=== PATIENT | female | born 1960 | race Caucasian/White ===

== ENCOUNTER 2017-03-14 21:48 | Inpatient (IN) | payer OTHER, MEDICARE ==
[~2017-03-14] VITALS: Ht 177.8 cm; Wt 75.2 kg
[2017-03-14 21:52] VITALS: BP 172/92; PULSE 79; RESP 18; TEMP 97.8; O2SAT 92
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
[2017-03-14] MEDS ORDERED: HALOPERIDOL LACTATE 5 MG/ML AMP IM PRN (23:15)
[2017-03-14] MEDS ORDERED: ACETAMINOPHEN/HYDROcodone 325 MG/5 MG TAB PO PRN (23:15)
[2017-03-14] MEDS ORDERED: NALOXONE HCL 0.4 MG/ML AMP IV PUSH PRN (23:15)
[2017-03-14] MEDS ORDERED: ONDANSETRON HCL 4 MG/2 ML VIAL IV PUSH PRN (23:15)
[2017-03-14] MEDS ORDERED: SODIUM CHLORIDE 0.9% FLUSH 10 ML FLUSH IV FLUSH PRN (23:15)
[2017-03-14] MEDS ORDERED: Post-op Orders (for Pharmacy) XX ONE (23:15)
[2017-03-14] MEDS ORDERED: PANTOPRAZOLE SOD 40 MG DELAYED RELEASE TAB PO SCH (23:15)
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
[2017-03-15] VITALS (30 sets, daily range): BP systolic 116–188; BP diastolic 65–89; PULSE 78–98; RESP 16–24; TEMP 98–101.8; O2SAT 96–100
[2017-03-15] MEDS: MORPHINE SULFATE 2 MG/ML INJ IV PUSH PRN ×2 (00:30→10:18)
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
[2017-03-15] MEDS: DEXMEDETOMIDINE INJ 200 MCG in SODIUM CHLORIDE 0.9% INJ 50 ML IV PRN ×2 (01:20→07:55)
[2017-03-15] MEDS: levETIRAcetam INJ 500 MG in SODIUM CHLORIDE 0.9% INJ 100 ML IV SCH ×3 (01:20→20:18)
[2017-03-15] MEDS ORDERED: LORazepam 2 MG/ML VIAL IV PUSH ONE ×2 (02:00→02:30)
[2017-03-15 02:20] LABS: AUTOMATED NEUTROPHIL # 14.1 TH/MM3 (1.8-7.7); BASOPHIL % 0.3 % (0.0-2.0); LYMPH % 2.2 % (9.0-44.0); LYMPHOCYTE # 0.3 TH/MM3 (1.0-4.8); MEAN CELL VOLUME 97.5 FL (80.0-100.0); MEAN CORPUSCULAR HEMOGLOBIN 32.6 PG (27.0-34.0); MEAN CORPUSCULAR HGB CONC 33.4 % (32.0-36.0); MEAN PLATELET VOLUME 7.5 FL (7.0-11.0); MONO % 4.2 % (0.0-8.0); MONOCYTE # 0.6 TH/MM3 (0-0.9); NEUT % 93.3 % (16.0-70.0); PLATELET COUNT 141 TH/MM3 (150-450); RED BLOOD COUNT 1.94 MIL/MM3 (4.50-5.90); RED CELL DISTRIBUTION WIDTH 15.2 % (11.6-17.2); WHITE BLOOD COUNT 15.2 TH/MM3 (4.0-11.0)
[2017-03-15 02:39] LABS: BLOOD UREA NITROGEN 41 MG/DL (7-18); CALCIUM 8.3 MG/DL (8.5-10.1); CHLORIDE 98 MEQ/L (98-107); CREATININE 5.65 MG/DL (0.60-1.30); GLOMERULAR FILTRATION RATE 11 ML/MIN (>89); GLUCOSE,RANDOM 145 MG/DL (74-106); SODIUM (NA) 133 MEQ/L (136-145)
[2017-03-15 02:43] LABS: HEMOGLOBIN 6.3 GM/DL (13.0-17.0)
[2017-03-15 02:44] LABS: HEMATOCRIT 18.9 % (39.0-51.0)
[2017-03-15] MEDS ORDERED: SODIUM CHLOR 0.9% 250 ML INJ 250 ML IV ONE (03:00)
[2017-03-15] MEDS ORDERED: LORazepam 2 MG/ML VIAL IV PUSH PRN (04:30)
[2017-03-15] MEDS: FAMOTIDINE 20 MG/2 ML VIAL IV PUSH SCH ×2 (05:37→17:30)
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
[2017-03-15] MEDS: METHOCARBAMOL 500 MG TAB PO SCH ×3 (07:30→21:29)
[2017-03-15] MEDS: MAGNESIUM HYDROXIDE SUSP 30 ML CUP PO SCH ×2 (09:00→20:18)
[2017-03-15] MEDS: SODIUM CHLORIDE 0.9% FLUSH 10 ML FLUSH IV FLUSH SCH ×2 (09:00→20:18)
[2017-03-15] MEDS: DOCUSATE SODIUM 50 MG/SENNA 8.6 MG TAB PO SCH ×2 (09:00→20:19)
[2017-03-15] MEDS: LIDOCAINE HCL 5% PATCH T-DERMAL SCH (10:19)
[2017-03-15] MEDS: LABETALOL HCL 100 MG/20 ML VIAL IV PUSH PRN (10:43)
[2017-03-15] MEDS ORDERED: MIDAZOLAM HCL 5 MG/ML VIAL (1 ML) ONE (11:33)
[2017-03-15] MEDS ORDERED: PROPOFOL 500 MG/50 ML INJ 50 ML ONE (11:53)
--- NOTE | 2017-03-15 12:08 | PD.PROCEDR ---
Procedure Note Procedure DX: Altered mental status OP: Orotracheal Intubation (78478) Procedure: Bag mask ventilation. Versed 5 mg and cis-atracurium 20 mg iv. Intubated orally with 7.5 tube. Position confirmed with CO2 detection, breath sounds, sats 100%. CXR ordered, will review. Buddy Valle MD Mar 15, 2017 12:08
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
[2017-03-15] MEDS: fentaNYL DRIP 250 ML IV PRN (12:45)
[2017-03-15] MEDS ORDERED: 3% SALINE INJ 500 ML IV SCH (12:45)
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
[2017-03-15] MEDS ORDERED: MORPHINE SULFATE 8 MG/ML INJ ONE (13:33)
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
[2017-03-15] MEDS ORDERED: SODIUM CHLOR 0.9% 1000 ML INJ 1,000 ML OTHER PRN ×2 (14:23)
[2017-03-15] MEDS ORDERED: SODIUM CHLOR 0.9% 1000 ML INJ 1,000 ML IV PRN (14:23)
[2017-03-15] MEDS ORDERED: SODIUM CHLORIDE 0.9% FLUSH 10 ML FLUSH IV FLUSH PRN (14:30)
[2017-03-15] MEDS ORDERED: MANNITOL 12.5 GM/50 ML VIAL IV PRN (14:30)
[2017-03-15] MEDS ORDERED: diphenhydrAMINE HCL 25 MG CAP PO PRN (14:30)
[2017-03-15] MEDS ORDERED: cloNIDine HCL 0.1 MG TAB PO PRN (14:30)
[2017-03-15] MEDS ORDERED: NITROGLYCERIN 0.4 MG SL 25 TABS/BTL SL PRN (14:30)
[2017-03-15] MEDS ORDERED: ONDANSETRON HCL 4 MG/2 ML VIAL IV PUSH PRN (14:30)
[2017-03-15] MEDS ORDERED: ACETAMINOPHEN 325 MG TAB PO PRN (14:30)
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
[2017-03-15] MEDS: PROPOFOL 1000 MG/100 ML INJ 100 ML IV PRN (15:31)
--- NOTE | 2017-03-15 15:53 | MP ---
cc: MD DONALDO,LENNIE DATE OF SURGERY: 03/15/2017. PREOPERATIVE DIAGNOSIS: Traumatic brain injury with bilateral subdural hematomas and intracerebral hemorrhage. POSTOPERATIVE DIAGNOSIS: Traumatic brain injury with bilateral subdural hematomas and intracerebral hemorrhage. OPERATIVE PROCEDURE PERFORMED: Triple lumen placement in the right subclavian. SURGEON: Lennie Robles M.D. ANESTHESIA: 1% Xylocaine. ESTIMATED BLOOD LOSS: Minimal. DESCRIPTION OF THE PROCEDURE IN DETAIL: The patient was prepped and draped in the usual sterile fashion. The area was infiltrated with 1% Xylocaine. A needle was advanced to the subclavian vein and through the needle a J-wire was passed. Over the J-wire dilator, a triple lumen was placed and the balloon was stitched in place with 2-0 silk. Chest x-ray obtained. Lennie SHIPMAN/SANDRO /3:10 PM /3:45 PM
[2017-03-15] MEDS ORDERED: DESMOPRESSIN ACETATE 4 MCG/ML VIAL IV PUSH ONE (16:00)
[2017-03-15 16:19] LABS: INTERNATIONAL NORMALIZED RATIO 1.2 RATIO; PROTHROMBIN TIME - PATIENT 12.2 SEC (9.8-11.6)
[2017-03-15 16:20] LABS: HEMATOCRIT 16.2 % (35.0-46.0); HEMOGLOBIN 5.5 GM/DL (11.6-15.3)
[2017-03-15] MEDS: cloNIDine HCL 0.1 MG/24 HR PATCH T-DERMAL SCH (17:29)
[2017-03-15] MEDS: ACETAMINOPHEN 1000 MG/100 ML 100 ML IV PRN (18:23)
[2017-03-15] MEDS: CHLORHEXIDINE 0.12% (ORAL KIT) 15 ML CUP MT SCH (19:50)
[2017-03-15] MEDS: REMOVE OLD LIDOCAINE PATCH T-DERMAL SCH (21:00)
[2017-03-15 23:28] LABS: HEMATOCRIT 24.2 % (35.0-46.0); HEMOGLOBIN 8.6 GM/DL (11.6-15.3); MEAN CORPUSCULAR HEMOGLOBIN 31.1 PG (27.0-34.0); MEAN CORPUSCULAR HGB CONC 35.3 % (32.0-36.0); MEAN PLATELET VOLUME 8.1 FL (7.0-11.0); PLATELET COUNT 73 TH/MM3 (150-450); RED BLOOD COUNT 2.75 MIL/MM3 (4.00-5.30); RED CELL DISTRIBUTION WIDTH 18.9 % (11.6-17.2)
[2017-03-16] VITALS (21 sets, daily range): BP systolic 129–150; BP diastolic 75–91; PULSE 74–136; RESP 14–16; TEMP 97.9–99.7; O2SAT 100
[2017-03-16] MEDS: PROPOFOL 1000 MG/100 ML INJ 100 ML IV PRN ×4 (00:13→18:20)
[2017-03-16] MEDS: FAMOTIDINE 20 MG/2 ML VIAL IV PUSH SCH ×2 (04:18→16:52)
[2017-03-16 04:20] LABS: AUTOMATED NEUTROPHIL # 7.2 TH/MM3 (1.8-7.7); BASOPHIL % 0.5 % (0.0-2.0); EOSINOPHIL % 0.1 % (0.0-4.0); HEMATOCRIT 24.9 % (35.0-46.0); HEMOGLOBIN 8.9 GM/DL (11.6-15.3); LYMPH % 7.3 % (9.0-44.0); LYMPHOCYTE # 0.6 TH/MM3 (1.0-4.8); MEAN CELL VOLUME 87.7 FL (80.0-100.0); MEAN CORPUSCULAR HEMOGLOBIN 31.3 PG (27.0-34.0); MEAN CORPUSCULAR HGB CONC 35.6 % (32.0-36.0); MEAN PLATELET VOLUME 7.9 FL (7.0-11.0); MONO % 7.7 % (0.0-8.0); MONOCYTE # 0.7 TH/MM3 (0-0.9); NEUT % 84.4 % (16.0-70.0); PLATELET COUNT 76 TH/MM3 (150-450); RED BLOOD COUNT 2.83 MIL/MM3 (4.00-5.30); RED CELL DISTRIBUTION WIDTH 19.4 % (11.6-17.2); WHITE BLOOD COUNT 8.5 TH/MM3 (4.0-11.0)
[2017-03-16 04:36] LABS: ALBUMIN 2.9 GM/DL (3.4-5.0); CALCIUM 7.4 MG/DL (8.5-10.1); CALCIUM-PROTEIN CORRECTED 7.9 MG/DL (8.5-10.1); CREATININE 6.73 MG/DL (0.50-1.00); MAGNESIUM 2.3 MG/DL (1.5-2.5); TOTAL BILIRUBIN ADULT 0.5 MG/DL (0.2-1.0); TOTAL PROTEIN 6.2 GM/DL (6.4-8.2)
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
[2017-03-16 05:26] LABS: ACANTHOCYTES OCC (NORMAL)
[2017-03-16] MEDS: METHOCARBAMOL 500 MG TAB PO SCH ×3 (05:40→21:20)
[2017-03-16] MEDS: CHLORHEXIDINE 0.12% (ORAL KIT) 15 ML CUP MT SCH ×2 (07:44→19:36)
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
[2017-03-16] MEDS: SODIUM CHLORIDE 0.9% FLUSH 10 ML FLUSH IV FLUSH SCH ×2 (09:00→21:20)
[2017-03-16] MEDS: fentaNYL DRIP 250 ML IV PRN ×2 (09:57→23:11)
[2017-03-16] MEDS: 3% SALINE INJ 500 ML IV SCH (09:58)
[2017-03-16] MEDS: DOCUSATE SODIUM 50 MG/SENNA 8.6 MG TAB PO SCH ×2 (09:58→21:20)
[2017-03-16] MEDS: levETIRAcetam INJ 500 MG in SODIUM CHLORIDE 0.9% INJ 100 ML IV SCH ×2 (09:58→21:19)
[2017-03-16] MEDS: LIDOCAINE HCL 5% PATCH T-DERMAL SCH (09:59)
[2017-03-16] MEDS: MAGNESIUM HYDROXIDE SUSP 30 ML CUP PO SCH ×2 (09:59→21:20)
[2017-03-16] MEDS ORDERED: IOHEXOL 350 MG/ML 10 ML VIAL (for RAD DIAG) IVCONTRAST ONE (11:04)
--- NOTE | 2017-03-16 11:16 | RADRPT ---
EXAM DATE/TIME: 03/16/2017 11:01 [facility] COMPARISON: CT BRAIN W/O CONTRAST, March 15, 2017, 14:21. INDICATIONS : Evaluate intracranial bleed RADIATION DOSE: 34.75 CTDIvol (mGy) MEDICAL HISTORY : Hypertension. Hepatitis C. Renal failure, chronic. SURGICAL HISTORY : Cholecystectomy. ENCOUNTER: Initial ACUITY: 1 day PAIN SCALE: Non-responsive LOCATION: cranial TECHNIQUE: Multiple contiguous axial images were obtained of the head. Using automated exposure control and adj ustment of the mA and/or kV according to patient size, radiation dose was kept as low as reasonably a chievable to obtain optimal diagnostic quality images. DICOM format image data is available electro nically for review and comparison. FINDINGS: There is stable diffuse subarachnoid hemorrhage bilaterally. Acute subdural hematomas are also again noted and stable measuring 7 mm in width on the left and 8 mm in width on the right. The acute parenc hymal bleed within the right occipital lobe is stable in appearance compared to previous examination. No new midline shift is noted. No ventriculomegaly is noted. The patient is status post aneurysm cli pping on the left. CONCLUSION: Stable diffuse acute subarachnoid hemorrhage and bilateral subdural hematomas. No new midline shift or ventriculomegaly is noted. Jordan Jung MD on March 16, 2017 at 11:10 Board Certified Radiologist. This report was verified electronically.
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
--- NOTE | 2017-03-16 12:06 | RADRPT ---
EXAM DATE/TIME: 03/16/2017 11:01 [facility] COMPARISON: CT BRAIN W/O CONTRAST, March 16, 2017, 11:01. INDICATIONS : Evaluate intracranial bleed IV CONTRAST: 70 cc Omnipaque 350 (iohexol) IV ; Cumulative dose for multiple exams. RADIATION DOSE: 25.96 CTDIvol (mGy) ; Combined studies MEDICAL HISTORY : Hypertension. Hepatitis C. Renal insufficiency, chronic. SURGICAL HISTORY : Cholecystectomy. ENCOUNTER: Initial ACUITY: 1 day PAIN SCALE: Non-responsive LOCATION: cranial TECHNIQUE: Volumetric scanning was performed using a multi-row detector CT scanner. The data was post processed with a variety of visualization algorithms including full volume maximum intensity pr ojection, multi-planar sliding thin slab reformation, curved planar reformation, and surface renderin g techniques. Using automated exposure control and adjustment of the mA and/or kV according to patie nt size, radiation dose was kept as low as reasonably achievable to obtain optimal diagnostic quality images. DICOM format image data is available electronically for review and comparison. FINDINGS: Previous aneurysm clipping as evident. Patient having new subarachnoid hemorrhage. Aneurysm clippin g is at the skull base. I don't CA new aneurysm. Skull base is not cleared. Conventional angiograp hy would be of benefit. CONCLUSION: Subarachnoid hemorrhage. Aneurysm is not identified. Han Santillan MD FACR on March 16, 2017 at 12:01 Board Certified Radiologist. This report was verified electronically.
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
--- NOTE | 2017-03-16 13:00 | RADRPT ---
EXAM DATE/TIME: 03/16/2017 11:01 [facility] COMPARISON: No previous studies available for comparison. INDICATIONS : Evaluate bleed IV CONTRAST: 70 cc Omnipaque 350 (iohexol) IV ; Cumulative dose for multiple exams. RADIATION DOSE: 25.96 CTDIvol (mGy) ; Combined studies MEDICAL HISTORY : Hepatitis C. Hypertension. Renal failure, chronic. SURGICAL HISTORY : Cholecystectomy. ENCOUNTER: Initial ACUITY: 1 day PAIN SCALE: Non-responsive LOCATION: cranial Elevated flow velocities and ICA/CCA ratios have been found to correlate with increased degrees of vessel stenosis, calculated as percentage of diameter relative to a normal segment of distal ICA/CCA. TECHNIQUE: Volumetric scanning was performed using a multirow detector CT scanner. The data was post processed with a variety of visualization algorithms including full-volume maximum intensity projection, multip lanar sliding thin-slab reformation, curved-planar reformation, and surface-rendering techniques. Us ing automated exposure control and adjustment of the mA and/or kV according to patient size, radiatio n dose was kept as low as reasonably achievable to obtain optimal diagnostic quality images. DICOM f ormat image data is available electronically for review and comparison. FINDINGS: AORTIC ARCH: Truncus arch anatomy. Widely patent arch vessels. RIGHT CAROTID: The common carotid artery is intact. The carotid bulb has a normal configuration without ulceration o r narrowing. The internal carotid artery lumen is smooth without stenosis. The external carotid anitra ry is intact. LEFT CAROTID: The common carotid artery is intact. The carotid bulb has a normal configuration without ulceration or narrowing. The internal carotid artery lumen is smooth without stenosis. The external carotid ar rosa is intact. VERTEBRALS: The vertebral arteries have a symmetric diameter. No stenotic lesions are seen. CONCLUSION: Normal carotid CTA Alex Terrell MD on March 16, 2017 at 12:56 Board Certified Radiologist. This report was verified electronically.
[2017-03-16] MEDS ORDERED: RASS Change Order XX ONE (14:15)
[2017-03-16 15:24] LABS: HEPATITIS A AB IGM NEGATIVE (NEGATIVE); HEPATITIS B CORE AB IGM NEGATIVE (NEGATIVE); HEPATITIS B SURFACE ANTIGEN NEGATIVE (NEGATIVE); HEPATITIS C AB IgG REACTIVE (NEGATIVE)
[2017-03-16] MEDS ORDERED: LISI-515 PO (16:00)
[2017-03-16] MEDS ORDERED: CALC1CAP PO (16:00)
[2017-03-16] MEDS ORDERED: XANA1TAB2 PO (16:00)
[2017-03-16] MEDS ORDERED: RENATAB6 PO (16:00)
[2017-03-16] MEDS ORDERED: CLON0.1T PO (16:00)
[2017-03-16] MEDS ORDERED: SEVEL800 PO (16:00)
[2017-03-16] MEDS ORDERED: METO1TAB9 PO (16:00)
[2017-03-16] MEDS ORDERED: CINA30 PO (16:00)
[2017-03-16] MEDS ORDERED: AMLO10TA2 PO (16:00)
[2017-03-16] MEDS ORDERED: PARO40TA2 PO (16:00)
[2017-03-16] MEDS ORDERED: ALBUAER3 INH (16:00)
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
[2017-03-16] MEDS: RESP: ALBUTEROL 2.5 MG/IPRATROPIUM 0.5 MG NEB (PRN) NEB (20:11)
[2017-03-16] MEDS ORDERED: SODIUM CHLORIDE 23.4% INJ 240 MEQ in SYRINGE/BAG 1 EA IV ONE (20:30)
[2017-03-16] MEDS: MIDAZOLAM 100 MG/NS 100 ML DRIP Premix IV PRN (21:00)
[2017-03-16] MEDS: REMOVE OLD LIDOCAINE PATCH T-DERMAL SCH (21:54)
[2017-03-16] MEDS ORDERED: RESP: ACETYLCYSTEINE 10% 10 ML NEB NEB SCH (22:30)
[2017-03-16] MEDS: RESP: ACETYLCYSTEINE 10% 30 ML NEB NEB SCH (22:45)
[2017-03-16] MEDS ORDERED: RESP: ACETYLCYSTEINE 20% 30 ML NEB NEB SCH (22:45)
[2017-03-16] MEDS ORDERED: METOPROLOL TARTRATE 5 MG/5 ML VIAL IV PUSH ONE (23:00)
[2017-03-16 23:14] LABS: BASOPHIL % 0.5 % (0.0-2.0); EOSINOPHIL % 0.5 % (0.0-4.0); HEMATOCRIT 24.5 % (35.0-46.0); HEMOGLOBIN 8.6 GM/DL (11.6-15.3); LYMPH % 6.8 % (9.0-44.0); LYMPHOCYTE # 0.6 TH/MM3 (1.0-4.8); MEAN CELL VOLUME 89.2 FL (80.0-100.0); MEAN CORPUSCULAR HEMOGLOBIN 31.3 PG (27.0-34.0); MEAN CORPUSCULAR HGB CONC 35.1 % (32.0-36.0); MEAN PLATELET VOLUME 7.9 FL (7.0-11.0); MONOCYTE # 0.5 TH/MM3 (0-0.9); NEUT % 87.2 % (16.0-70.0); PLATELET COUNT 78 TH/MM3 (150-450); RED BLOOD COUNT 2.74 MIL/MM3 (4.00-5.30); RED CELL DISTRIBUTION WIDTH 19.6 % (11.6-17.2); WHITE BLOOD COUNT 9.1 TH/MM3 (4.0-11.0)
[2017-03-16 23:38] LABS: BICARBONATE 27.2 MEQ/L (21.0-32.0); CALCIUM 8.3 MG/DL (8.5-10.1); CREATININE 4.11 MG/DL (0.50-1.00); MAGNESIUM 2.1 MG/DL (1.5-2.5); PHOSPHORUS 3.3 MG/DL (2.5-4.9)
[2017-03-17] VITALS (28 sets, daily range): BP systolic 131–179; BP diastolic 68–94; PULSE 73–136; RESP 14–16; TEMP 98.5–100.2; O2SAT 96–100
[2017-03-17] MEDS ORDERED: SODIUM CHLORIDE 0.9% IV ONE (00:15)
[2017-03-17] MEDS ORDERED: DESMOPRESSIN IV ONE (00:15)
[2017-03-17] MEDS: PROPOFOL 1000 MG/100 ML INJ 100 ML IV PRN ×5 (01:10→23:25)
[2017-03-17] MEDS: RESP: ACETYLCYSTEINE 10% 30 ML NEB NEB SCH ×4 (03:11→22:06)
[2017-03-17 04:07] LABS: AUTOMATED NEUTROPHIL # 10.4 TH/MM3 (1.8-7.7); BASOPHIL % 0.4 % (0.0-2.0); EOSINOPHIL % 0.1 % (0.0-4.0); HEMATOCRIT 24.6 % (35.0-46.0); HEMOGLOBIN 8.5 GM/DL (11.6-15.3); LYMPH % 1.1 % (9.0-44.0); LYMPHOCYTE # 0.1 TH/MM3 (1.0-4.8); MEAN CELL VOLUME 88.9 FL (80.0-100.0); MEAN CORPUSCULAR HEMOGLOBIN 30.5 PG (27.0-34.0); MEAN CORPUSCULAR HGB CONC 34.3 % (32.0-36.0); MEAN PLATELET VOLUME 7.6 FL (7.0-11.0); MONO % 4.4 % (0.0-8.0); MONOCYTE # 0.5 TH/MM3 (0-0.9); PLATELET COUNT 90 TH/MM3 (150-450); RED BLOOD COUNT 2.77 MIL/MM3 (4.00-5.30); WHITE BLOOD COUNT 11.1 TH/MM3 (4.0-11.0)
[2017-03-17] MEDS: FAMOTIDINE 20 MG/2 ML VIAL IV PUSH SCH ×2 (04:19→16:26)
[2017-03-17 04:24] LABS: ALBUMIN 2.8 GM/DL (3.4-5.0); ALT (GPT) 28 U/L (10-53); AST (GOT) 53 U/L (15-37); BICARBONATE 28.3 MEQ/L (21.0-32.0); BLOOD UREA NITROGEN 35 MG/DL (7-18); CALCIUM 8.2 MG/DL (8.5-10.1); CHLORIDE 110 MEQ/L (98-107); CREATININE 4.46 MG/DL (0.50-1.00); GLOMERULAR FILTRATION RATE 10 ML/MIN (>89); GLUCOSE,RANDOM 117 MG/DL (74-106); SODIUM (NA) 145 MEQ/L (136-145)
[2017-03-17 04:25] LABS: ALKALINE PHOSPHATASE 92 U/L (45-117); TOTAL BILIRUBIN ADULT 0.5 MG/DL (0.2-1.0); TOTAL PROTEIN 6.4 GM/DL (6.4-8.2)
--- NOTE | 2017-03-17 05:14 | RADRPT ---
EXAM DATE/TIME: 03/17/2017 04:09 [facility] COMPARISON: CHEST SINGLE AP, March 16, 2017, 4:18. INDICATIONS : Short of breath, respiratory disease. MEDICAL HISTORY : Hypertension. Hepatitis C. SURGICAL HISTORY : None. ENCOUNTER: Subsequent ACUITY: 4 - 6 days PAIN SCORE: 0/10 LOCATION: Bilateral chest FINDINGS: Portable AP view of the chest demonstrates enlargement of the cardiac silhouette. ETT and right subcl yaz central line remain present. Nasogastric tube is in place. There is no pneumothorax. There is p ersistent opacity in the bibasilar aspects bilaterally. CONCLUSION: 1. Stable chest x-ray with bibasilar opacities. 2. Stable enlargement of the cardiac silhouette. Alex Bergeron MD on March 17, 2017 at 5:12 Board Certified Radiologist. This report was verified electronically.
[2017-03-17] MEDS: METHOCARBAMOL 500 MG TAB PO SCH ×3 (05:15→21:50)
[2017-03-17] MEDS: RESP: ALBUTEROL 2.5 MG/IPRATROPIUM 0.5 MG NEB (PRN) NEB ×3 (07:22→22:05)
[2017-03-17] MEDS ORDERED: Vancomycin Consult Pharmacy 1 EA OTHER SCH (07:45)
[2017-03-17] MEDS: CHLORHEXIDINE 0.12% (ORAL KIT) 15 ML CUP MT SCH ×2 (08:00→19:37)
[2017-03-17] MEDS ORDERED: VANCOMYCIN INJ 1,000 MG in SODIUM CHLOR 0.9% 250 ML INJ 250 ML IV ONE (08:00)
[2017-03-17] MEDS: 3% SALINE INJ 500 ML IV SCH (09:00)
[2017-03-17] MEDS: SODIUM CHLORIDE 0.9% FLUSH 10 ML FLUSH IV FLUSH SCH ×2 (09:00→20:12)
[2017-03-17] MEDS: MAGNESIUM HYDROXIDE SUSP 30 ML CUP PO SCH ×2 (09:04→20:12)
[2017-03-17] MEDS: LIDOCAINE HCL 5% PATCH T-DERMAL SCH (09:04)
[2017-03-17] MEDS: DOCUSATE SODIUM 50 MG/SENNA 8.6 MG TAB PO SCH ×2 (09:04→20:12)
[2017-03-17] MEDS: levETIRAcetam INJ 500 MG in SODIUM CHLORIDE 0.9% INJ 100 ML IV SCH ×2 (09:05→20:12)
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
[2017-03-17] MEDS ORDERED: SODIUM CHLOR 0.9% 250 ML INJ 250 ML IV ONE ×2 (09:15→15:15)
[2017-03-17] MEDS: fentaNYL DRIP 250 ML IV PRN ×2 (09:30→18:08)
[2017-03-17] MEDS: EPOETIN ALFA 10,000 UNITS/ML VIAL IV PUSH PRN (09:42)
[2017-03-17] MEDS: GELATIN 12 MM/7 MM FOAM TOP PRN (09:43)
--- NOTE | 2017-03-17 09:55 | PD.PROCEDR ---
Procedure Note Procedure REASON FOR PROCEDURE Invasive hemodynamic monitoring, continuous CPP monitoring PROCEDURE PERFORMED Right radial arterial line placement ANESTHESIA Local injection of 1% Lidocaine DESCRIPTION OF THE PROCEDURE The patient was placed in supine position. The area was exposed and cleansed with ChloraPrep, times two. Large sterile drape was used to cover the right radial artery site, and under sterile conditions including cap, face mask, and sterile gloves. On single attempt, the introducer needle was inserted and arterial flash was obtained. The guide wire was then advanced without any restriction and the needle was removed. Using Seldinger technique the 20 G 16 cm catheter was advanced over the guide wire to a depth of 15 centimeters. The guide wire was removed. Good arterial wave form obtained. Antibiotic disc was placed around arterial line at puncture site. The central line was secured to the skin with one interrupted 2.0 silk sutures. The area was bandaged with sterile see-through central line bandage. COMPLICATIONS: No apparent complications ESTIMATED BLOOD LOSS: Less than 2 cc. Jaimie Johnson MD Mar 17, 2017 09:55
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
[2017-03-17] MEDS ORDERED: POTASSIUM CHLOR 20 MEQ PREMIX 100 ML IV ONE (10:30)
[2017-03-17] MEDS: PROPRANOLOL HCL 10 MG TAB PO SCH ×3 (11:35→21:49)
[2017-03-17] MEDS: PIPERACIL-TAZO 2.25 GM PREMIX 50 ML IV SCH ×2 (11:36→16:58)
[2017-03-17] MEDS: LABETALOL HCL 100 MG/20 ML VIAL IV PUSH PRN (11:50)
--- NOTE | 2017-03-17 11:54 | ECHRPT ---
Indication: sob CONCLUSIONS Normal left ventricular size. There is a flattened septum in systole consistent with right ventricle pressure overload. The right ventriclar size is upper limits of normal. The right ventricular systoilc function is mildly decreased. The left atrial size is mildly dilated. The right atrial size is moderately dilated. Mild thickening of the mitral valve leaflets. Moderate mitral annular calcification. Mild mitral valve stenosis. Mild mitral valve regurgitation. The mitral valve area by Pressure Halftime Method is _3.0_ cm. Aortic valve sclerosis is present. There is mild tricuspid valve regurgitation. The estimated pulmonary arterial pressure is 72.7 mmHg. There is estimated severe pulmonary hypertension present ( > 70 mmHg). BP: / HR: Rhythm: MEASUREMENTS (Male / Female) Normal Values Technical Quality:Fair 2D ECHO LV Diastolic Diameter PLAX 3.9 cm 4.2 - 5.9 / 3.9 - 5.3 cm LV Systolic Diameter PLAX 2.8 cm IVS Diastolic Thickness 1.1 cm 0.6 - 1.0 / 0.6 - 0.9 cm LVPW Diastolic Thickness 1.0 cm 0.6 - 1.0 / 0.6 - 0.9 cm LV Relative Wall Thickness 0.6 RV Internal Dim ED PLAX 2.9 cm M-MODE Aortic Root Diameter MM 3.1 cm LA Systolic Diameter MM 3.7 cm LA Ao Ratio MM 1.2 AV Cusp Separation MM 1.3 cm DOPPLER MV Area PHT 3.0 cm LV E' Lateral Velocity 9.6 cm/s LV E' Septal Velocity 4.9 cm/s TR Peak Velocity 396.0 cm/s TR Peak Gradient 62.7 mmHg Right Atrial Pressure 10.0 mmHg Pulmonary Artery Systolic Pressu 72.7 mmHg Right Ventricular Systolic Press 72.7 mmHg FINDINGS LEFT VENTRICLE Normal left ventricular size. The left ventricular systolic function is normal with an estimated ejection fraction in the range of 60-65%. There is a flattened septum in systole consistent with right ventricle pressure overload. RIGHT VENTRICLE The right ventriclar size is upper limits of normal. The right ventricular systoilc function is mildly decreased. LEFT ATRIUM The left atrial size is mildly dilated. RIGHT ATRIUM The right atrial size is moderately dilated. ATRIAL SEPTUM Normal atrial septal thickness without atrial level shunting by limited color doppler interrogation. AORTA The aortic root and proximal ascending aorta are normal in size on limited imaging. MITRAL VALVE Mild thickening of the mitral valve leaflets. Moderate mitral annular calcification. Mild mitral valve stenosis. Mild mitral valve regurgitation. The mitral valve area by Pressure Halftime Method is _3.0_ cm. AORTIC VALVE Trileaflet aortic valve. Aortic valve sclerosis is present. TRICUSPID VALVE Structurally normal tricuspid valve. There is mild tricuspid valve regurgitation. The estimated pulmonary arterial pressure is 72.7 mmHg. There is estimated severe pulmonary hypertension present ( > 70 mmHg). PULMONARY VALVE No pulmonary valve regurgitation or stenosis. VESSELS The inferior vena cava is normal in size. PERICARDIUM No pericardial effusion. Raheem Daly MD, FACC (Electronically Signed) Final Date:17 March 2017 11:53
[2017-03-17] MEDS: MIDAZOLAM 100 MG/NS 100 ML DRIP Premix IV PRN (12:39)
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
[2017-03-17] MEDS ORDERED: IODIXANOL 320 MG/ML 50 ML VIAL (for Rad CT) IVCONTRAST ONE (14:22)
--- NOTE | 2017-03-17 14:37 | EKG ---
Date Performed: 03/16/2017 Time Performed: 22:30:50 PTAGE: 56 years EKG: Atrial flutter with rapid ventricular response with 2:1 A-V block. Cannot rule out anterior infarct - age undetermined Left ventricular hypertrophy Inferior/lateral ST-T changes are probably d ue to ventricular hypertrophy Abnormal ECG NO PREVIOUS TRACING DOCTOR: Erika Aldana Interpretating Date/Time 03/17/2017 14:30:50
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
--- NOTE | 2017-03-17 16:23 | RADRPT ---
EXAM DATE/TIME: 03/17/2017 14:10 [facility] COMPARISON: CHEST SINGLE AP, March 17, 2017, 4:09. INDICATIONS : Chest pain IV CONTRAST: 48 cc Visipaque (iodixanol) IV ; Cumulative dose for multiple exams. RADIATION DOSE: 5.64 CTDIvol (mGy) ; Combined studies MEDICAL HISTORY : Renal insufficiency. Hypertension. Hepatitis C. SURGICAL HISTORY : ENCOUNTER: Subsequent ACUITY: 3 days PAIN SCALE: Non-responsive LOCATION: Bilateral chest TECHNIQUE: Volumetric scanning of the chest was performed. Using automated exposure control and adjustment of t he mA and/or kV according to patient size, radiation dose was kept as low as reasonably achievable to obtain optimal diagnostic quality images. DICOM format image data is available electronically for review and comparison. Follow-up recommendations for detected pulmonary nodules are based at a minimum on nodule size and pa tient risk factors according to Fleischner Society Guidelines. FINDINGS: Extensive bibasilar alveolar consolidations are noted posteriorly and are worse than on the previous examination consistent with worsening atelectasis and/or pneumonia. Clinical correlation is recommend ed. Mild central pulmonary vascular congestion is noted. Small bilateral pleural effusions are noted. Cardiomegaly and coronary artery calcifications are noted. Anasarca is noted. Endotracheal tube ayad ins in good position above the juanito. Nasogastric tube is noted in the stomach. Right subclavian romario tral line is noted in the superior vena cava. No pneumothorax is noted. CONCLUSION: 1. Worsening extensive bibasilar alveolar consolidations consistent with probable worsening atelectas is and/or pneumonia. Clinical correlation is recommended. 2. Mild central pulmonary vascular congestion. 3. Small bilateral pleural effusions. 4. Cardiomegaly and coronary artery calcifications. 5. Anasarca. Jordan Jung MD on March 17, 2017 at 16:13 Board Certified Radiologist. This report was verified electronically.
[2017-03-17] MEDS: ACETAMINOPHEN 1000 MG/100 ML 100 ML IV PRN (16:27)
[2017-03-17] MEDS: AZITHROMYCIN INJ 500 MG in SODIUM CHLOR 0.9% 250 ML INJ 250 ML IV SCH (16:58)
[2017-03-17 18:42] LABS: HEMATOCRIT 29.9 % (35.0-46.0); HEMOGLOBIN 10.5 GM/DL (11.6-15.3)
[2017-03-17] MEDS: REMOVE OLD LIDOCAINE PATCH T-DERMAL SCH (21:23)
[2017-03-17] MEDS ORDERED: RESP: ACETYLCYSTEINE 10% 10 ML NEB NEB SCH (22:00)
[2017-03-18] VITALS (18 sets, daily range): BP systolic 122–162; BP diastolic 68–80; PULSE 73–92; RESP 14–24; TEMP 97.2–101.3; O2SAT 93–100
[2017-03-18] MEDS: PIPERACIL-TAZO 2.25 GM PREMIX 50 ML IV SCH ×3 (00:32→17:12)
[2017-03-18] MEDS: 3% SALINE INJ 500 ML IV SCH ×2 (02:43→14:56)
[2017-03-18] MEDS: MIDAZOLAM 100 MG/NS 100 ML DRIP Premix IV PRN ×2 (02:51→17:35)
[2017-03-18] MEDS ORDERED: RASS Change Order XX ONE (03:00)
[2017-03-18] MEDS: RESP: ACETYLCYSTEINE 10% 30 ML NEB NEB SCH ×4 (03:36→21:34)
[2017-03-18] MEDS: FAMOTIDINE 20 MG/2 ML VIAL IV PUSH SCH ×2 (03:56→15:58)
[2017-03-18 04:27] LABS: AUTOMATED NEUTROPHIL # 7.3 TH/MM3 (1.8-7.7); BASOPHIL % 0.4 % (0.0-2.0); EOSINOPHIL # 0.2 TH/MM3 (0-0.4); EOSINOPHIL % 2.1 % (0.0-4.0); HEMATOCRIT 29.9 % (35.0-46.0); HEMOGLOBIN 10.4 GM/DL (11.6-15.3); LYMPH % 2.8 % (9.0-44.0); LYMPHOCYTE # 0.2 TH/MM3 (1.0-4.8); MEAN CELL VOLUME 88.5 FL (80.0-100.0); MEAN CORPUSCULAR HEMOGLOBIN 30.9 PG (27.0-34.0); MEAN CORPUSCULAR HGB CONC 34.9 % (32.0-36.0); MEAN PLATELET VOLUME 8.1 FL (7.0-11.0); MONO % 3.4 % (0.0-8.0); MONOCYTE # 0.3 TH/MM3 (0-0.9); NEUT % 91.3 % (16.0-70.0); PLATELET COUNT 79 TH/MM3 (150-450); RED BLOOD COUNT 3.38 MIL/MM3 (4.00-5.30); RED CELL DISTRIBUTION WIDTH 18.2 % (11.6-17.2)
[2017-03-18] MEDS: fentaNYL DRIP 250 ML IV PRN ×3 (04:27→20:53)
[2017-03-18 04:53] LABS: ALBUMIN 2.4 GM/DL (3.4-5.0); AST (GOT) 31 U/L (15-37); BICARBONATE 28.9 MEQ/L (21.0-32.0); BLOOD UREA NITROGEN 31 MG/DL (7-18); CALCIUM 8.9 MG/DL (8.5-10.1); CHLORIDE 111 MEQ/L (98-107); CREATININE 3.61 MG/DL (0.50-1.00); GLOMERULAR FILTRATION RATE 13 ML/MIN (>89); GLUCOSE,RANDOM 104 MG/DL (74-106); SODIUM (NA) 147 MEQ/L (136-145)
[2017-03-18 04:55] LABS: ALKALINE PHOSPHATASE 109 U/L (45-117); ALT (GPT) 22 U/L (10-53); RANDOM VANCOMYCIN 14.6 COMMENT; TOTAL BILIRUBIN ADULT 0.7 MG/DL (0.2-1.0); TOTAL PROTEIN 6.2 GM/DL (6.4-8.2)
[2017-03-18] MEDS: PROPOFOL 1000 MG/100 ML INJ 100 ML IV PRN ×4 (04:55→20:52)
[2017-03-18] MEDS: METHOCARBAMOL 500 MG TAB PO SCH ×3 (05:44→21:46)
[2017-03-18] MEDS: PROPRANOLOL HCL 10 MG TAB PO SCH ×3 (05:44→21:46)
--- NOTE | 2017-03-18 05:57 | RADRPT ---
EXAM DATE/TIME: 03/18/2017 04:43 [facility] COMPARISON: CHEST SINGLE AP, March 17, 2017, 4:09. INDICATIONS : Shortness of breath. MEDICAL HISTORY : Renal insufficiency. Hypertension. Hepatitis C. SURGICAL HISTORY : Aneurysm clip ENCOUNTER: Subsequent ACUITY: 4 - 6 days PAIN SCORE: Non-responsive. LOCATION: Bilateral chest FINDINGS: Portable AP view of the chest demonstrate stable mild enlargement of the cardiac silhouette. The NG t ube and ETT remain present. Right subclavian central line distal tip is in the SVC. There are stable bibasilar pleural-parenchymal opacities. No pneumothorax is identified. CONCLUSION: Stable chest x-ray with small bilateral pleural effusions with associated volume loss and/or airspace consolidation. Alex Bergeron MD on March 18, 2017 at 5:54 Board Certified Radiologist. This report was verified electronically.
[2017-03-18] MEDS: CHLORHEXIDINE 0.12% (ORAL KIT) 15 ML CUP MT SCH ×2 (09:08→19:48)
[2017-03-18] MEDS: LACTULOSE SYRUP 20 GM/30 ML CUP PO SCH (09:09)
[2017-03-18] MEDS: DOCUSATE SODIUM 50 MG/SENNA 8.6 MG TAB PO SCH ×2 (09:09→20:19)
[2017-03-18] MEDS: SODIUM CHLORIDE 0.9% FLUSH 10 ML FLUSH IV FLUSH SCH ×2 (09:09→20:17)
[2017-03-18] MEDS: LIDOCAINE HCL 5% PATCH T-DERMAL SCH (09:09)
[2017-03-18] MEDS: MAGNESIUM HYDROXIDE SUSP 30 ML CUP PO SCH ×2 (09:09→20:19)
[2017-03-18] MEDS: levETIRAcetam INJ 500 MG in SODIUM CHLORIDE 0.9% INJ 100 ML IV SCH ×2 (09:09→20:17)
[2017-03-18] MEDS: RESP: ALBUTEROL 2.5 MG/IPRATROPIUM 0.5 MG NEB (PRN) NEB ×2 (09:46→11:59)
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
--- NOTE | 2017-03-18 11:10 | HHI.NSPN ---
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 clipping Renal failure on hemodialysis Last Impressions Chest X-Ray 03/18/17 06 Signed Impressions: Service Date/Time: Saturday, March 18, 2017 04:43 - CONCLUSION: Stable chest x-ray with small bilateral pleural effusions with associated volume loss and/or airspace consolidation. Alex Bergeron MD Head CT 03/17/17 0000 Signed Impressions: Service Date/Time: Friday, March 17, 2017 14:00 - CONCLUSION: 1. Stable postoperative changes. 2. Unchanged subarachnoid hemorrhage with no ventriculomegaly. Alfredo Rodriguez MD Chest CT 03/17/17 0000 Signed Impressions: Service Date/Time: Friday, March 17, 2017 14:10 - CONCLUSION: 1. Worsening extensive bibasilar alveolar consolidations consistent with probable worsening atelectasis and/or pneumonia. Clinical correlation is recommended. 2. Mild central pulmonary vascular congestion. 3. Small bilateral pleural effusions. 4. Cardiomegaly and coronary artery calcifications. 5. Anasarca. Jordan Jung MD Abdomen/Pelvis CT 03/17/17 Signed Impressions: Service Date/Time: Friday, March 17, 2017 14:07 - CONCLUSION: 1. Worsening extensive alveolar consolidations within the posterior aspects of the lung bases consistent with atelectasis and/or pneumonia. Clinical correlation is recommended. 2. Diffuse anasarca. 3. Ascites. 4. Tiny bilateral pleural effusions. 5. Cardiomegaly. 6. Tiny fracture along the left side of the superior endplate of L5. Jordan Jung MD Neck CTA 03/16/17 1103 Signed Impressions: Service Date/Time: Thursday, March 16, 2017 11:01 - CONCLUSION: Normal carotid CTA Alex Terrell MD Head CTA 03/16/17 Signed Impressions: Service Date/Time: Thursday, March 16, 2017 11:01 - CONCLUSION: Subarachnoid hemorrhage. Aneurysm is not identified. Han Santillan MD FACR Femur X-Ray 03/15/17 0600 Signed Impressions: Service Date/Time: Wednesday, March 15, 2017 06:39 - CONCLUSION: Unremarkable examination of the left femur. Art Cottrell MD Tibia/Fibula X-Ray 03/15/17 0000 Signed Impressions: Service Date/Time: Wednesday, March 15, 2017 03:58 - CONCLUSION: Unremarkable examination of the right tibia. Art Cottrell MD Cervical Spine CT 03/15/17 0000 Signed Impressions: Service Date/Time: Wednesday, March 15, 2017 14:21 - CONCLUSION: 1. No fracture or subluxation. 2. Extensive soft tissue injury greater along the left shoulder not completely imaged. Thanh Eid MD ([place] Jeffery) Plan Plan Remarks again reviewed f/u CT Head yesterday, cont nonoperative management cont ICP monitoring per Dr. King continue neuro check nonchemical DVT prophylaxis in view of acute intracranial hemorrhage critical care management Keppra for seizure prophylaxis ([place] Jeffery) Attending Statement traumatic brain injury. Continue neuro checks in a serial fashion, follow-up CT of the head will be done today. Status post ICP monitor. Monitor her ICP and CPP. Her ICP's have been unstable requiring hypertonic solutions with 23% NaCl infusions. Maximal sedation. If the hemorrhage gets significantly worse she may need to undergo a craniotomy with evacuation of the hematoma. Acute subdural bleeds in elderly patients have a high mortality rate Anemia. Etiology ? Follow up0 CBC Right localized posterior pneumothorax. I recommend a follow up chest xray, If gets worse I would recommend a chest tube Left lateral sixth and seventh rib fractures. Possible anterolateral fourth and fifth rib fractures. narcotic analgesics as needed Suspected. sternal fx repeat CT Nondisplaced left L1 and L2 transverse processes fractures, right L3 transverse process fracture. Narcotic analgesics for pain control Pulmonary. aggressive pulmonary toilette, nasotracheal suction, and breathing treatments with nebulizers. Daily PT and OT Nutrition. Tolerating Oral diet Renal. monitor closely urine output, BUN and creatinine Endocrine.Monitor serial Acu checks and SSI as needed in detail ID monitor for signs of infection Protonix for stress ulcer prophylaxis Teo hose and SCD's for DVT prophylaxis Further recommendations will be provided depending on the patient's clinical evaluation and follow up studies. (Saulo King MD) [place] Jeffery Mar 18, 2017 11:10 Saulo King MD Mar 21, 2017 22:04
[2017-03-18] MEDS: ACETAMINOPHEN 1000 MG/100 ML 100 ML IV PRN (11:48)
--- NOTE | 2017-03-18 12:02 | PD.CONS ---
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 worsening atelectasis and/or pneumonia. Clinical correlation is recommended. 2. Mild central pulmonary vascular congestion. 3. Small bilateral pleural effusions. 4. Cardiomegaly and coronary artery calcifications. 5. Anasarca. Jordan Jung MD Abdomen/Pelvis CT 03/17/17 0000 Signed Impressions: Service Date/Time: Friday, March 17, 2017 14:07 - CONCLUSION: 1. Worsening extensive alveolar consolidations within the posterior aspects of the lung bases consistent with atelectasis and/or pneumonia. Clinical correlation is recommended. 2. Diffuse anasarca. 3. Ascites. 4. Tiny bilateral pleural effusions. 5. Cardiomegaly. 6. Tiny fracture along the left side of the superior endplate of L5. Jordan Jung MD Neck CTA 03/16/17 1103 Signed Impressions: Service Date/Time: Thursday, March 16, 2017 11:01 - CONCLUSION: Normal carotid CTA Alex Terrell MD Head CTA 03/16/17 0000 Signed Impressions: Service Date/Time: Thursday, March 16, 2017 11:01 - CONCLUSION: Subarachnoid hemorrhage. Aneurysm is not identified. Han Santillan MD FACR Femur X-Ray 03/15/17 0600 Signed Impressions: Service Date/Time: Wednesday, March 15, 2017 06:39 - CONCLUSION: Unremarkable examination of the left femur. Art Cottrell MD Tibia/Fibula X-Ray 03/15/17 0000 Signed Impressions: Service Date/Time: Wednesday, March 15, 2017 03:58 - CONCLUSION: Unremarkable examination of the right tibia. Art Cottrell MD Cervical Spine CT 03/15/17 0000 Signed Impressions: Service Date/Time: Wednesday, March 15, 2017 14:21 - CONCLUSION: 1. No fracture or subluxation. 2. Extensive soft tissue injury greater along the left shoulder not completely imaged. Thanh Eid MD Procedures * 03/15/17: Intubation * 03/15/17, guilherme hole with intracranial pressure monitor placement * 03/15/17, right subclavian line * 03/17/17, arterial line . Patient/Family Conference Present at Family Conference: Patient's daughter Rocio . Family Conference Time (mins): 55 Family Conference Location: Bedside, Consult Room Issues Discussed: * Palliative care role, purpose, approach * Additional medical, psychosocial, and spiritual history * Patients general health, functional status, and cognitive changes in the months leading up to the current hospitalization * Patient/family understanding of the current medical problems * Patient/family understanding of prognosis * Patients goals of care as best understood from advance directives and/or conversations and/or values * Current medical treatment options and benefits/burdens of those options * Likely scenarios comparing ongoing aggressive care with a transition to comfort measures only * Questions answered to the best of my ability * Palliative care contact information provided . Assessment and Plan Disease Oriented Problem List: (1) multiple traumatic injuries (2) head trauma, with subarachnoid and subdural blood (3) chest trauma, with fractures and pneumothorax (4) consolidation on CT scan bilateral, apparent pneumonia (5) anemia requiring transfusion (6) pulmonary hypertension on echocardiogram (7) history of seizures (8) end-stage renal disease/dialysis -- history of polycystic kidney disease (9) history of ruptured cerebral aneurysm 22 years ago (10) history of ruptured cerebral aneurysm 22 years ago history of hepatitis C (11) history of polysubstance abuse, opiate addiction, reportedly "clean" in recent years (12) anxiety (13) depression Symptom Scale: (1) pain 0-10 Scale: Unable to quantify (2) dyspnea 0-10 Scale: Unable to quantify Pertinent Non-Medical Issues Psychosocial: Originally from the [facility], long history of intermittent polysubstance abuse but "clean in recent years," when her overdosed, has 2 daughters living in this area. Spiritual: [employer] background, open to portfolio assistant visits Legal: The patient lacks capacity for decision-making, and she will not regain that capacity. Her 2 daughters Rocio and Brandyn are the proxy decision makers. Ethical issues impacting care: None . Important Contacts Daughter: Rocio Painting [phone] Daughter: Brandyn Honeycutt [phone] Stepson: Rodney Painting . Prognosis Prognosis is quite poor. The patient has been chronically ill for quite some time, and now has severe head and chest trauma. She would be appropriate for transition to comfort services if the focus of the family he falls in that direction. . Code Status: Full Code Plan * FULL CODE, at least until the meeting on with both daughters and the stepson * DECISION-MAKING: The patient lacks capacity for decision-making, and she will not regain that capacity. Her 2 daughters Rocio and Brandyn are the proxy decision makers. * GOALS: Pj Chan requests that we continue aggressive care for now, and resuscitation status and further care focus will be addressed at a meeting afternoon with both daughters and the stepson. * SYMPTOMS: The patient's pain and dyspnea is being managed by propofol, fentanyl, Versed, and mechanical ventilation. I have no additional medication recommendations at this time. * I am meeting tomorrow with both daughters and the stepson to further discuss resuscitation status and the overall poor prognosis and attendant treatment options. * Discussed with portfolio assistant, will see patient. * Palliative Care will continue to follow the patient during this hospitalization. . Time Spent Total Floor Time (mins): 88 Face to Face Time (mins): 16 >50% Counseling/Coord of Care: Yes (d/w GERARDO. ISABEL, and Dr. Suarez) Thank you for the opportunity to participate in the care of Ms. Painting. Attestation To help prompt me to consider important information that might be impacting today's encounter and assessment, information from prior notes written by myself or my colleagues may have been "brought forward" into today's note. My signature on this note, however, is an attestation that I personally performed the exam, history, and/or decision-making noted today, and, unless otherwise indicated, the interactions with patient, family, and staff as well as the review of records all occurred today. I also attest that the listed assessment and stated plan reflect my best clinical judgment today based on the combination of historical information, prior notes, and today's exam/ interactions. When time spent is documented, it refers only to time spent today by the signer, or if indicated, combined time spent today by collaborating physician/nurse practitioner. Yoly Vazquez MD Mar 18, 2017 12:02
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
[2017-03-18] MEDS: ALBUMIN 25% INJ 100 ML IV PRN (13:06)
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
[2017-03-18] MEDS: LABETALOL HCL 100 MG/20 ML VIAL IV PUSH PRN (15:40)
[2017-03-18] MEDS: RESP: ALBUTEROL 2.5 MG/IPRATROPIUM 0.5 MG NEB (SCH) NEB ×2 (15:54→21:34)
[2017-03-18] MEDS: niCARdipine INJ 25 MG in SODIUM CHLOR 0.9% 250 ML INJ 250 ML IV PRN ×2 (15:58→20:21)
[2017-03-18] MEDS ORDERED: VANCOMYCIN 1,000 MG/NS 250 ML IV ONE ×2 (16:00)
[2017-03-18] MEDS ORDERED: VANCOMYCIN 1 GM/200 ML PREMIX IV ONE (16:00)
[2017-03-18] MEDS: AZITHROMYCIN INJ 500 MG in SODIUM CHLOR 0.9% 250 ML INJ 250 ML IV SCH (17:12)
[2017-03-18] MEDS ORDERED: SODIUM CHLORIDE 23.4% INJ 240 MEQ in SYRINGE/BAG 1 EA IV-CENTRAL ONE (17:15)
[2017-03-18] MEDS: REMOVE OLD LIDOCAINE PATCH T-DERMAL SCH (21:00)
[2017-03-19] VITALS (18 sets, daily range): BP systolic 122–144; BP diastolic 62–71; PULSE 58–87; RESP 20–24; TEMP 96.4–100.1; O2SAT 97–100
[2017-03-19] MEDS: PIPERACIL-TAZO 2.25 GM PREMIX 50 ML IV SCH ×3 (00:14→16:34)
[2017-03-19] MEDS: PROPOFOL 1000 MG/100 ML INJ 100 ML IV PRN ×5 (01:44→23:30)
[2017-03-19] MEDS: MIDAZOLAM 100 MG/NS 100 ML DRIP Premix IV PRN ×3 (02:23→21:45)
[2017-03-19] MEDS: RESP: ACETYLCYSTEINE 10% 30 ML NEB NEB SCH ×4 (03:25→22:00)
[2017-03-19] MEDS: RESP: ALBUTEROL 2.5 MG/IPRATROPIUM 0.5 MG NEB (SCH) NEB ×4 (03:25→19:31)
[2017-03-19] MEDS: fentaNYL DRIP 250 ML IV PRN ×3 (03:41→17:31)
[2017-03-19] MEDS: FAMOTIDINE 20 MG/2 ML VIAL IV PUSH SCH ×2 (03:42→16:26)
[2017-03-19 03:46] LABS: AUTOMATED NEUTROPHIL # 10.1 TH/MM3 (1.8-7.7); BASOPHIL % 0.3 % (0.0-2.0); EOSINOPHIL # 0.1 TH/MM3 (0-0.4); EOSINOPHIL % 0.9 % (0.0-4.0); HEMATOCRIT 31.6 % (35.0-46.0); HEMOGLOBIN 10.8 GM/DL (11.6-15.3); LYMPH % 2.2 % (9.0-44.0); LYMPHOCYTE # 0.2 TH/MM3 (1.0-4.8); MEAN CELL VOLUME 89.9 FL (80.0-100.0); MEAN CORPUSCULAR HEMOGLOBIN 30.8 PG (27.0-34.0); MEAN CORPUSCULAR HGB CONC 34.2 % (32.0-36.0); MEAN PLATELET VOLUME 8.5 FL (7.0-11.0); MONO % 4.4 % (0.0-8.0); MONOCYTE # 0.5 TH/MM3 (0-0.9); NEUT % 92.2 % (16.0-70.0); PLATELET COUNT 81 TH/MM3 (150-450); RED BLOOD COUNT 3.52 MIL/MM3 (4.00-5.30); RED CELL DISTRIBUTION WIDTH 18.6 % (11.6-17.2)
[2017-03-19 03:58] LABS: ALBUMIN 2.3 GM/DL (3.4-5.0); AST (GOT) 22 U/L (15-37); BICARBONATE 28.4 MEQ/L (21.0-32.0); BLOOD UREA NITROGEN 31 MG/DL (7-18); CALCIUM 8.5 MG/DL (8.5-10.1); CHLORIDE 117 MEQ/L (98-107); CREATININE 3.03 MG/DL (0.50-1.00); GLOMERULAR FILTRATION RATE 16 ML/MIN (>89); GLUCOSE,RANDOM 130 MG/DL (74-106); SODIUM (NA) 152 MEQ/L (136-145)
[2017-03-19 04:01] LABS: ALKALINE PHOSPHATASE 111 U/L (45-117); ALT (GPT) 18 U/L (10-53); RANDOM VANCOMYCIN 22.3 COMMENT; TOTAL BILIRUBIN ADULT 0.8 MG/DL (0.2-1.0); TOTAL PROTEIN 6.2 GM/DL (6.4-8.2)
--- NOTE | 2017-03-19 05:17 | RADRPT ---
EXAM DATE/TIME: 03/19/2017 04:15 [place] COMPARISON: CT THORAX W CONTRAST, March 17, 2017, 14:10. CHEST SINGLE AP, March 18, 2017, 4:43. INDICATIONS : Short of breath. MEDICAL HISTORY : Renal insufficiency. Hypertension. Hepatitis C. SURGICAL HISTORY : Aneurysm clip ENCOUNTER: Subsequent ACUITY: 4 - 6 days PAIN SCORE: Non-responsive. LOCATION: Bilateral chest FINDINGS: Portable AP view of the chest demonstrates enlargement of the cardiac silhouette. Right subclavian ce ntral line, endotracheal tube, and nasogastric tube remain present. There are stable bibasilar pleura l-parenchymal opacities. No pneumothorax is visualized. CONCLUSION: 1. Stable bibasilar pleural-parenchymal opacities representing pleural effusions with associated volu me loss and/or airspace consolidation. 2. Stable enlargement of the cardiac silhouette. Alex Bergeron MD on March 19, 2017 at 5:15 Board Certified Radiologist. This report was verified electronically.
[2017-03-19] MEDS: PROPRANOLOL HCL 10 MG TAB PO SCH ×3 (05:24→21:34)
[2017-03-19] MEDS: METHOCARBAMOL 500 MG TAB PO SCH ×3 (05:24→21:34)
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
[2017-03-19] MEDS ORDERED: METHYLNALTREXONE BROMIDE 12 MG/0.6 ML VIAL SQ ONE (07:30)
[2017-03-19] MEDS ORDERED: GLYCERIN ADULT 2 GM SUPP RECTAL ONE (07:30)
[2017-03-19] MEDS ORDERED: DEXTROSE 50% IN WATER 50 ML VIAL(D50) IV PUSH PRN (07:30)
[2017-03-19] MEDS ORDERED: GLUCAGON 1 MG/ML VIAL OTHER PRN (07:30)
[2017-03-19] MEDS: 3% SALINE INJ 500 ML IV SCH ×2 (07:46→20:15)
[2017-03-19] MEDS: LIDOCAINE HCL 5% PATCH T-DERMAL SCH (08:09)
[2017-03-19] MEDS: LACTULOSE SYRUP 20 GM/30 ML CUP PO SCH (08:09)
[2017-03-19] MEDS: POLYETHYLENE GLYCOL 17 GM PKG NG SCH ×2 (08:09→20:52)
[2017-03-19] MEDS: levETIRAcetam INJ 500 MG in SODIUM CHLORIDE 0.9% INJ 100 ML IV SCH ×2 (08:09→20:52)
[2017-03-19] MEDS: CALCIUM ACETATE 667 MG CAP PO SCH ×3 (08:09→17:31)
[2017-03-19] MEDS: CHLORHEXIDINE 0.12% (ORAL KIT) 15 ML CUP MT SCH ×2 (08:10→20:00)
[2017-03-19] MEDS: SODIUM CHLORIDE 0.9% FLUSH 10 ML FLUSH IV FLUSH SCH ×2 (08:10→20:52)
[2017-03-19] MEDS: DOCUSATE SODIUM 50 MG/SENNA 8.6 MG TAB PO SCH ×2 (08:10→20:52)
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
[2017-03-19] MEDS: INSULIN NovoLIN REGULAR SUPPLEMENTAL SCALE SQ SCH ×2 (11:35→17:31)
--- NOTE | 2017-03-19 11:46 | HHI.NSPN ---
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 administered on 03/21/17at 10:00; Start 03/21/17 at 10:00; Stop 03/21/17 at 10:24 ; Status DC Nicardipine HCl 50 mg/Sodium Chloride 500 ml @ 50 mls/hr TITRATE PRN IV Blood pressure management Last administered on 03/21/17at 20:05; Start 03/21/17 at 19: 00 Fentanyl Citrate (fentaNYL INJ) 50 mcg Q1H PRN IV PUSH PAIN/AGITATION Last administered on 03/21/17at 21:25; Start 03/21/17 at 21:15 (Saulo King MD) Medical Decision Making MDM Remarks 56-year-old female traumatic brain injury, diffuse subarachnoid hemorrhage, left subdural hematoma, status post placement of intracranial pressure monitor to 03/15/17. Follow-up CT brain yesterday afternoon shows increased size of right extra-axial fluid collection with mild mass-effect, stable serial f/u CT Heads 03/16 and 03/17 History of remote aneurysm clipping Renal failure on hemodialysis Last Impressions Chest X-Ray 03/18/17 0600 Signed Impressions: Service Date/Time: Saturday, March 18, 2017 04:43 - CONCLUSION: Stable chest x-ray with small bilateral pleural effusions with associated volume loss and/or airspace consolidation. Alex Bergeron MD Head CT 03/17/17 0000 Signed Impressions: Service Date/Time: Friday, March 17, 2017 14:00 - CONCLUSION: 1. Stable postoperative changes. 2. Unchanged subarachnoid hemorrhage with no ventriculomegaly. Alfredo Rodriguez MD Chest CT 03/17/17 0000 Signed Impressions: Service Date/Time: Friday, March 17, 2017 14:10 - CONCLUSION: 1. Worsening extensive bibasilar alveolar consolidations consistent with probable worsening atelectasis and/or pneumonia. Clinical correlation is recommended. 2. Mild central pulmonary vascular congestion. 3. Small bilateral pleural effusions. 4. Cardiomegaly and coronary artery calcifications. 5. Anasarca. Joradn Jung MD Abdomen/Pelvis CT 03/17/17 0000 Signed Impressions: Service Date/Time: Friday, March 17, 2017 14:07 - CONCLUSION: 1. Worsening extensive alveolar consolidations within the posterior aspects of the lung bases consistent with atelectasis and/or pneumonia. Clinical correlation is recommended. 2. Diffuse anasarca. 3. Ascites. 4. Tiny bilateral pleural effusions. 5. Cardiomegaly. 6. Tiny fracture along the left side of the superior endplate of L5. Jordan Jung MD Neck CTA 03/16/17 1103 Signed Impressions: Service Date/Time: Thursday, March 16, 2017 11:01 - CONCLUSION: Normal carotid CTA Alex Terrell MD Head CTA 03/16/17 0000 Signed Impressions: Service Date/Time: Thursday, March 16, 2017 11:01 - CONCLUSION: Subarachnoid hemorrhage. Aneurysm is not identified. Han Santillan MD FACR Femur X-Ray 03/15/17 0600 Signed Impressions: Service Date/Time: Wednesday, March 15, 2017 06:39 - CONCLUSION: Unremarkable examination of the left femur. Art Cottrell MD Tibia/Fibula X-Ray 03/15/17 0000 Signed Impressions: Service Date/Time: Wednesday, March 15, 2017 03:58 - CONCLUSION: Unremarkable examination of the right tibia. Art Cottrell MD Cervical Spine CT 03/15/17 0000 Signed Impressions: Service Date/Time: Wednesday, March 15, 2017 14:21 - CONCLUSION: 1. No fracture or subluxation. 2. Extensive soft tissue injury greater along the left shoulder not completely imaged. Thanh Eid MD (Libia Jeffery) Plan Plan Remarks cont ICP monitoring per Dr. King continue neuro check critical care management Kera for seizure prophylaxis palliative care consulted (Libia Jeffery) Attending Statement traumatic brain injury. Continue neuro checks in a serial fashion, follow-up CT of the head will be done today. Status post ICP monitor. Monitor her ICP and CPP. Her ICP's have been unstable requiring hypertonic solutions with 23% NaCl infusions. Maximal sedation. If the hemorrhage gets significantly worse she may need to undergo a craniotomy with evacuation of the hematoma. Acute subdural bleeds in elderly patients have a high mortality rate Anemia. Etiology ? Follow up0 CBC Right localized posterior pneumothorax. I recommend a follow up chest xray, If gets worse I would recommend a chest tube Left lateral sixth and seventh rib fractures. Possible anterolateral fourth and fifth rib fractures. narcotic analgesics as needed Suspected. sternal fx repeat CT Nondisplaced left L1 and L2 transverse processes fractures, right L3 transverse process fracture. Narcotic analgesics for pain control Pulmonary. aggressive pulmonary toilette, nasotracheal suction, and breathing treatments with nebulizers. Daily PT and OT Nutrition. Tolerating Oral diet Renal. monitor closely urine output, BUN and creatinine Endocrine.Monitor serial Acu checks and SSI as needed in detail ID monitor for signs of infection Protonix for stress ulcer prophylaxis Teo hose and SCD's for DVT prophylaxis Further recommendations will be provided depending on the patient's clinical evaluation and follow up studies. (Saulo King MD) Libia Jeffery Mar 19, 2017 11:46 Saulo King MD Mar 21, 2017 22:05
[2017-03-19] MEDS: ALBUMIN 25% INJ 100 ML IV PRN (13:52)
[2017-03-19] MEDS: EPOETIN ALFA 10,000 UNITS/ML VIAL IV PUSH PRN (13:52)
--- NOTE | 2017-03-19 14:02 | HHI.HCPN ---
Reason for visit a. To assist with evaluation and management of symptoms including: Pain, dyspnea b. To assist medical decision maker(s) with: better understanding of current medical conditions; weighing benefits/burdens of medical treatment options; making medical treatment decisions. . Subjective/Interval History INTERVAL NOTE: The patient remains sedated (fentanyl 350, propofol, Versed 10), and they are not attempting sedation vacations as the intracranial pressure has been up again during the night in the 20s. At this time, is 14. Chest x-ray consistent with volume loss or bibasilar consolidations. Hemoglobin 10.3. Meeting with family, see below . Family/friend interactions I met with both of the patient's daughters and with the john Stevens, and in addition the patient's brother and 2 [id number] are present with me and Hedy Sesay LCSW. We reviewed the patient's past history, her decline in recent months, the current injuries, the extent of the brain injury, the very poor prognosis, and the "best case scenario" of declining and dying in a usp bed in the upcoming weeks. We discussed resuscitation status and discussed the possibility of withdrawing life support to allow natural . Daughter Brandyn prefers DNR status at this time, and daughter Rocio is "not ready" to make that decision. The family plans to discuss the issues amongst themselves, considering what the patient herself would want if she was able to make decisions now, and we will talk more tomorrow. . . Advance Directives Living Will: Never completed Health Care Surrogate: Never completed Durable Power of Manager Of Financial: Never completed Objective Vital Signs Date Time Temp Pulse Resp B/P (MAP) Pulse Ox O2 Delivery O2 Flow Rate FiO2 03/19/17 12:00 40 03/19/17 12:00 98.6 73 20 136/71 (92) 100 03/19/17 12:00 73 03/19/17 11:15 99 40 03/19/17 10:00 76 03/19/17 08:00 80 03/19/17 08:00 40 03/19/17 08:00 98.8 58 20 138/66 (90) 100 03/19/17 07:58 100 40 03/19/17 07:00 100 Mechanical Ventilator 40 03/19/17 06:00 59 03/19/17 04:00 45 03/19/17 04:00 97.7 58 24 144/66 (92) 100 03/19/17 04:00 58 03/19/17 03:09 100 45 03/19/17 02:00 60 03/19/17 00:17 98 45 03/19/17 00:00 96.4 58 24 130/64 (86) 98 03/19/17 00:00 58 03/19/17 00:00 45 03/18/17 23:05 64 118/60 03/18/17 22:44 65 115/60 03/18/17 22:00 92 03/18/17 21:57 93 132/71 03/18/17 20:53 95 147/75 03/18/17 20:21 91 142/73 03/18/17 20:00 45 03/18/17 20:00 88 03/18/17 20:00 100.9 86 24 162/80 (107) 97 03/18/17 19:44 100 40 03/18/17 19:00 100 Mechanical Ventilator 45 03/18/17 18:00 87 03/18/17 17:18 93 60 03/18/17 17:00 60 03/18/17 16:00 88 03/18/17 16:00 40 03/18/17 16:00 100.9 86 14 162/80 (107) 97 03/18/17 15:58 87 164/78 03/18/17 14:00 73 Intake & Output 03/19/17 03/19/17 07:00 19:00 Intake Total 3206 ml 555 ml Output Total 0 ml Balance 3206 ml 555 ml IV Total 2550 ml 555 ml Tube Feeding 536 ml Tube Irrigant 120 ml Output Urine Total 0 ml Gastric Drainage Total 0 ml # Bowel Movements 0 Physical Exam CONSTITUTIONAL/GENERAL: This is an intubated, sedated ISC patient, unresponsive , appears significantly older than stated age TUBES/LINES/DRAINS: Endotracheal tube, Conde, intracranial pressure monitor SKIN: No jaundice, rashes, or lesions. Ecchymoses on upper extremities. No wounds seen anteriorly. Skin temperature appropriate. Not diaphoretic. HEAD: Contusions on the face Normocephalic. EYES: Pupils equal and round at about 1.5 mm each. No scleral icterus. I do not see any pupil reaction to light NECK: Trachea midline. Supple, nontender. No palpable thyroid enlargement or nodularity. CARDIOVASCULAR: Regular rate and rhythm without murmurs, gallops, or rubs. No JVD. Peripheral pulses symmetric. RESPIRATORY/CHEST: Symmetric, unlabored respirations on the ventilator. Decreased breath sounds, scattered rhonchi GASTROINTESTINAL: Abdomen soft, nondistended. No hepato-splenomegaly, or palpable masses. No guarding. Bowel sounds present. MUSCULOSKELETAL: Extremities without clubbing, cyanosis, or edema. No joint effusion noted.No mottling or clubbing. NEUROLOGICAL: Unresponsive/sedated on the ventilator PSYCHIATRIC: Unable to assess due to clinical condition . Diagnostic Tests Laboratory Laboratory Tests Test 03/16/17 15:25 03/16/17 20:21 03/16/17 23:00 03/17/17 03:21 Sodium Level 138 MEQ/L (136-145) 141 MEQ/L (136-145) Blood Gas Puncture Site RT RADIAL RT RADIAL Blood Gas Patient Temperature 98.6 98.6 Blood Gas HCO3 28 mmol/L (22-26) 25 mmol/L (22-26) Blood Gas Base Excess 3.9 mmol/L (-2-2) 2.7 mmol/L (-2-2) Blood Gas Oxygen Saturation 97 % (90-100) 92 % (90-100) Arterial Blood pH 7.46 (7.380-7.420) 7.55 (7.380-7.420) Arterial Blood Partial Pressure CO2 39 mmHg (38-42) 29 mmHg (38-42) Arterial Blood Partial Pressure O2 161 mmHg (61-120) 61 mmHg (61-120) Arterial Blood Oxygen Content 12.2 Vol % (12.0-20.0) 13.4 Vol % (12.0-20.0) Arterial Blood Carboxyhemoglobin 1.4 % (0-4) 1.4 % (0-4) Arterial Blood Methemoglobin 1.2 % (0-2) 1.2 % (0-2) Blood Gas Hemoglobin 8.7 G/DL (12.0-16.0) 10.4 G/DL (12.0-16.0) Oxygen Delivery Device VENTILATOR VENTILATOR Blood Gas Ventilator Setting VOLUME AC AC/16/500/PEEP5 Blood Gas Inspired Oxygen 100 % 60 % White Blood Count 9.1 TH/MM3 (4.0-11.0) Red Blood Count 2.74 MIL/MM3 (4.00-5.30) Hemoglobin 8.6 GM/DL (11.6-15.3) Hematocrit 24.5 % (35.0-46.0) Mean Corpuscular Volume 89.2 FL (80.0-100.0) Mean Corpuscular Hemoglobin 31.3 PG (27.0-34.0) Mean Corpuscular Hemoglobin Concent 35.1 % (32.0-36.0) Red Cell Distribution Width 19.6 % (11.6-17.2) Platelet Count 78 TH/MM3 (150-450) Mean Platelet Volume 7.9 FL (7.0-11.0) Neutrophils (%) (Auto) 87.2 % (16.0-70.0) Lymphocytes (%) (Auto) 6.8 % (9.0-44.0) Monocytes (%) (Auto) 5.0 % (0.0-8.0) Eosinophils (%) (Auto) 0.5 % (0.0-4.0) Basophils (%) (Auto) 0.5 % (0.0-2.0) Neutrophils # (Auto) 8.0 TH/MM3 (1.8-7.7) Lymphocytes # (Auto) 0.6 TH/MM3 (1.0-4.8) Monocytes # (Auto) 0.5 TH/MM3 (0-0.9) Eosinophils # (Auto) 0.0 TH/MM3 (0-0.4) Basophils # (Auto) 0.0 TH/MM3 (0-0.2) CBC Comment AUTO DIFF Differential Comment AUTO DIFF CONFIRMED Platelet Estimate LOW (NORMAL) Platelet Morphology Comment NORMAL (NORMAL) Blood Urea Nitrogen 32 MG/DL (7-18) Creatinine 4.11 MG/DL (0.50-1.00) Random Glucose 92 MG/DL (74-106) Calcium Level 8.3 MG/DL (8.5-10.1) Phosphorus Level 3.3 MG/DL (2.5-4.9) Magnesium Level 2.1 MG/DL (1.5-2.5) Potassium Level 3.5 MEQ/L (3.5-5.1) Chloride Level 104 MEQ/L (98-107) Carbon Dioxide Level 27.2 MEQ/L (21.0-32.0) Anion Gap 10 MEQ/L (5-15) Estimat Glomerular Filtration Rate 11 ML/MIN (>89) Test 03/17/17 03:40 03/17/17 08:31 03/17/17 12:45 03/17/17 13:43 White Blood Count 11.1 TH/MM3 (4.0-11.0) Red Blood Count 2.77 MIL/MM3 (4.00-5.30) Hemoglobin 8.5 GM/DL (11.6-15.3) Hematocrit 24.6 % (35.0-46.0) Mean Corpuscular Volume 88.9 FL (80.0-100.0) Mean Corpuscular Hemoglobin 30.5 PG (27.0-34.0) Mean Corpuscular Hemoglobin Concent 34.3 % (32.0-36.0) Red Cell Distribution Width 19.0 % (11.6-17.2) Platelet Count 90 TH/MM3 (150-450) Mean Platelet Volume 7.6 FL (7.0-11.0) Neutrophils (%) (Auto) 94.0 % (16.0-70.0) Lymphocytes (%) (Auto) 1.1 % (9.0-44.0) Monocytes (%) (Auto) 4.4 % (0.0-8.0) Eosinophils (%) (Auto) 0.1 % (0.0-4.0) Basophils (%) (Auto) 0.4 % (0.0-2.0) Neutrophils # (Auto) 10.4 TH/MM3 (1.8-7.7) Lymphocytes # (Auto) 0.1 TH/MM3 (1.0-4.8) Monocytes # (Auto) 0.5 TH/MM3 (0-0.9) Eosinophils # (Auto) 0.0 TH/MM3 (0-0.4) Basophils # (Auto) 0.0 TH/MM3 (0-0.2) CBC Comment AUTO DIFF Differential Comment AUTO DIFF CONFIRMED Platelet Estimate LOW (NORMAL) Platelet Morphology Comment NORMAL (NORMAL) Blood Urea Nitrogen 35 MG/DL (7-18) Creatinine 4.46 MG/DL (0.50-1.00) Random Glucose 117 MG/DL (74-106) Total Protein 6.4 GM/DL (6.4-8.2) Albumin 2.8 GM/DL (3.4-5.0) Calcium Level 8.2 MG/DL (8.5-10.1) Alkaline Phosphatase 92 U/L (45-117) Aspartate Amino Transf (AST/SGOT) 53 U/L (15-37) Alanine Aminotransferase (ALT/SGPT) 28 U/L (10-53) Total Bilirubin 0.5 MG/DL (0.2-1.0) Sodium Level 145 MEQ/L (136-145) 143 MEQ/L (136-145) Potassium Level 3.4 MEQ/L (3.5-5.1) Chloride Level 110 MEQ/L (98-107) Carbon Dioxide Level 28.3 MEQ/L (21.0-32.0) Anion Gap 7 MEQ/L (5-15) Estimat Glomerular Filtration Rate 10 ML/MIN (>89) Blood Gas Puncture Site ART LINE ART LINE Blood Gas Patient Temperature 98.6 98.6 Blood Gas HCO3 24 mmol/L (22-26) 28 mmol/L (22-26) Blood Gas Base Excess 1.2 mmol/L (-2-2) 5.2 mmol/L (-2-2) Blood Gas Oxygen Saturation 90 % (90-100) 90 % (90-100) Arterial Blood pH 7.51 (7.380-7.420) 7.53 (7.380-7.420) Arterial Blood Partial Pressure CO2 30 mmHg (38-42) 34 mmHg (38-42) Arterial Blood Partial Pressure O2 58 mmHg (61-120) 58 mmHg (61-120) Arterial Blood Oxygen Content 10.5 Vol % (12.0-20.0) 12.0 Vol % (12.0-20.0) Arterial Blood Carboxyhemoglobin 1.5 % (0-4) 1.6 % (0-4) Arterial Blood Methemoglobin 1.0 % (0-2) 1.4 % (0-2) Blood Gas Hemoglobin 8.2 G/DL (12.0-16.0) 9.4 G/DL (12.0-16.0) Oxygen Delivery Device VENTILATOR VENTILATOR Blood Gas Ventilator Setting PRVC/AC PRVC/AC Blood Gas Inspired Oxygen 40 % 45 % Test 03/17/17 18:10 03/17/17 20:44 03/18/17 03:22 03/18/17 04:00 Hemoglobin 10.5 GM/DL (11.6-15.3) 10.4 GM/DL (11.6-15.3) Hematocrit 29.9 % (35.0-46.0) 29.9 % (35.0-46.0) Sodium Level 144 MEQ/L (136-145) 147 MEQ/L (136-145) Blood Gas Puncture Site ART LINE Blood Gas Patient Temperature 98.6 Blood Gas HCO3 26 mmol/L (22-26) Blood Gas Base Excess 2.3 mmol/L (-2-2) Blood Gas Oxygen Saturation 93 % (90-100) Arterial Blood pH 7.47 (7.380-7.420) Arterial Blood Partial Pressure CO2 36 mmHg (38-42) Arterial Blood Partial Pressure O2 76 mmHg (61-120) Arterial Blood Oxygen Content 16.3 Vol % (12.0-20.0) Arterial Blood Carboxyhemoglobin 1.6 % (0-4) Arterial Blood Methemoglobin 1.2 % (0-2) Blood Gas Hemoglobin 12.4 G/DL (12.0-16.0) Oxygen Delivery Device VENTILATOR Blood Gas Ventilator Setting PRVC/AC Blood Gas Inspired Oxygen 45 % White Blood Count 8.0 TH/MM3 (4.0-11.0) Red Blood Count 3.38 MIL/MM3 (4.00-5.30) Mean Corpuscular Volume 88.5 FL (80.0-100.0) Mean Corpuscular Hemoglobin 30.9 PG (27.0-34.0) Mean Corpuscular Hemoglobin Concent 34.9 % (32.0-36.0) Red Cell Distribution Width 18.2 % (11.6-17.2) Platelet Count 79 TH/MM3 (150-450) Mean Platelet Volume 8.1 FL (7.0-11.0) Neutrophils (%) (Auto) 91.3 % (16.0-70.0) Lymphocytes (%) (Auto) 2.8 % (9.0-44.0) Monocytes (%) (Auto) 3.4 % (0.0-8.0) Eosinophils (%) (Auto) 2.1 % (0.0-4.0) Basophils (%) (Auto) 0.4 % (0.0-2.0) Neutrophils # (Auto) 7.3 TH/MM3 (1.8-7.7) Lymphocytes # (Auto) 0.2 TH/MM3 (1.0-4.8) Monocytes # (Auto) 0.3 TH/MM3 (0-0.9) Eosinophils # (Auto) 0.2 TH/MM3 (0-0.4) Basophils # (Auto) 0.0 TH/MM3 (0-0.2) CBC Comment AUTO DIFF Differential Comment AUTO DIFF CONFIRMED Platelet Estimate LOW (NORMAL) Platelet Morphology Comment NORMAL (NORMAL) Blood Urea Nitrogen 31 MG/DL (7-18) Creatinine 3.61 MG/DL (0.50-1.00) Random Glucose 104 MG/DL (74-106) Total Protein 6.2 GM/DL (6.4-8.2) Albumin 2.4 GM/DL (3.4-5.0) Calcium Level 8.9 MG/DL (8.5-10.1) Alkaline Phosphatase 109 U/L (45-117) Aspartate Amino Transf (AST/SGOT) 31 U/L (15-37) Alanine Aminotransferase (ALT/SGPT) 22 U/L (10-53) Total Bilirubin 0.7 MG/DL (0.2-1.0) Potassium Level 4.3 MEQ/L (3.5-5.1) Chloride Level 111 MEQ/L (98-107) Carbon Dioxide Level 28.9 MEQ/L (21.0-32.0) Anion Gap 7 MEQ/L (5-15) Estimat Glomerular Filtration Rate 13 ML/MIN (>89) Random Vancomycin Level 14.6 COMMENT Test 03/18/17 09:00 03/18/17 15:00 03/18/17 19:52 03/18/17 21:51 Sodium Level 147 MEQ/L (136-145) 145 MEQ/L (136-145) 151 MEQ/L (136-145) Blood Gas Puncture Site ART LINE Blood Gas Patient Temperature 98.6 Blood Gas HCO3 26 mmol/L (22-26) Blood Gas Base Excess 3.1 mmol/L (-2-2) Blood Gas Oxygen Saturation 89 % (90-100) Arterial Blood pH 7.50 (7.380-7.420) Arterial Blood Partial Pressure CO2 34 mmHg (38-42) Arterial Blood Partial Pressure O2 57 mmHg (61-120) Arterial Blood Oxygen Content 15.9 Vol % (12.0-20.0) Arterial Blood Carboxyhemoglobin 1.8 % (0-4) Arterial Blood Methemoglobin 1.2 % (0-2) Blood Gas Hemoglobin 12.7 G/DL (12.0-16.0) Oxygen Delivery Device VENTILATOR Blood Gas Ventilator Setting [facility] Blood Gas Inspired Oxygen 40 % Test 03/19/17 03:05 03/19/17 04:14 03/19/17 08:57 03/19/17 12:00 White Blood Count 11.0 TH/MM3 (4.0-11.0) Red Blood Count 3.52 MIL/MM3 (4.00-5.30) Hemoglobin 10.8 GM/DL (11.6-15.3) Hematocrit 31.6 % (35.0-46.0) Mean Corpuscular Volume 89.9 FL (80.0-100.0) Mean Corpuscular Hemoglobin 30.8 PG (27.0-34.0) Mean Corpuscular Hemoglobin Concent 34.2 % (32.0-36.0) Red Cell Distribution Width 18.6 % (11.6-17.2) Platelet Count 81 TH/MM3 (150-450) Mean Platelet Volume 8.5 FL (7.0-11.0) Neutrophils (%) (Auto) 92.2 % (16.0-70.0) Lymphocytes (%) (Auto) 2.2 % (9.0-44.0) Monocytes (%) (Auto) 4.4 % (0.0-8.0) Eosinophils (%) (Auto) 0.9 % (0.0-4.0) Basophils (%) (Auto) 0.3 % (0.0-2.0) Neutrophils # (Auto) 10.1 TH/MM3 (1.8-7.7) Lymphocytes # (Auto) 0.2 TH/MM3 (1.0-4.8) Monocytes # (Auto) 0.5 TH/MM3 (0-0.9) Eosinophils # (Auto) 0.1 TH/MM3 (0-0.4) Basophils # (Auto) 0.0 TH/MM3 (0-0.2) CBC Comment AUTO DIFF Differential Comment AUTO DIFF CONFIRMED Platelet Estimate LOW (NORMAL) Platelet Morphology Comment NORMAL (NORMAL) Blood Urea Nitrogen 31 MG/DL (7-18) Creatinine 3.03 MG/DL (0.50-1.00) Random Glucose 130 MG/DL (74-106) Total Protein 6.2 GM/DL (6.4-8.2) Albumin 2.3 GM/DL (3.4-5.0) Calcium Level 8.5 MG/DL (8.5-10.1) Alkaline Phosphatase 111 U/L (45-117) Aspartate Amino Transf (AST/SGOT) 22 U/L (15-37) Alanine Aminotransferase (ALT/SGPT) 18 U/L (10-53) Total Bilirubin 0.8 MG/DL (0.2-1.0) Sodium Level 152 MEQ/L (136-145) 152 MEQ/L (136-145) 153 MEQ/L (136-145) Potassium Level 3.7 MEQ/L (3.5-5.1) Chloride Level 117 MEQ/L (98-107) Carbon Dioxide Level 28.4 MEQ/L (21.0-32.0) Anion Gap 7 MEQ/L (5-15) Estimat Glomerular Filtration Rate 16 ML/MIN (>89) Random Vancomycin Level 22.3 COMMENT Blood Gas Puncture Site ART LINE Blood Gas Patient Temperature 98.6 Blood Gas HCO3 25 mmol/L (22-26) Blood Gas Base Excess 1.6 mmol/L (-2-2) Blood Gas Oxygen Saturation 96 % (90-100) Arterial Blood pH 7.49 (7.380-7.420) Arterial Blood Partial Pressure CO2 33 mmHg (38-42) Arterial Blood Partial Pressure O2 95 mmHg (61-120) Arterial Blood Oxygen Content 14.0 Vol % (12.0-20.0) Arterial Blood Carboxyhemoglobin 1.6 % (0-4) Arterial Blood Methemoglobin 1.1 % (0-2) Blood Gas Hemoglobin 10.3 G/DL (12.0-16.0) Oxygen Delivery Device VENTILATOR Blood Gas Ventilator Setting PRVC/AC Blood Gas Inspired Oxygen 45 % Serum Osmolality 330 MOSM/KG (275-295) Result Diagram: 03/19/17 0305 03/19/17 1200 Microbiology Microbiology Date/Time Source Procedure Growth Status 03/17/17 10:18 Blood Peripheral Aerobic Blood Culture - Preliminary NO GROWTH IN 2 DAYS Resulted 03/17/17 10:18 Blood Peripheral Anaerobic Blood Culture - Preliminary NO GROWTH IN 2 DAYS Resulted 03/17/17 10:05 Blood Peripheral Aerobic Blood Culture - Preliminary NO GROWTH IN 2 DAYS Resulted 03/17/17 10:05 Blood Peripheral Anaerobic Blood Culture - Preliminary NO GROWTH IN 2 DAYS Resulted 03/17/17 07:55 Sputum Endotracheal Gram Stain - Final Complete 03/17/17 07:55 Sputum Culture - Final Serratia Marcescens Citrobacter Koseri Complete Imaging Last Impressions Chest X-Ray 03/19/17 0600 Signed Impressions: Service Date/Time: March 04:15 - CONCLUSION: 1. Stable bibasilar pleural-parenchymal opacities representing pleural effusions with associated volume loss and/or airspace consolidation. 2. Stable enlargement of the cardiac silhouette. Alex Bergeron MD Head CT 03/17/17 0000 Signed Impressions: Service Date/Time: Friday, March 17, 2017 14:00 - CONCLUSION: 1. Stable postoperative changes. 2. Unchanged subarachnoid hemorrhage with no ventriculomegaly. Alfredo Rodriguez MD Chest CT 03/17/17 0000 Signed Impressions: Service Date/Time: Friday, March 17, 2017 14:10 - CONCLUSION: 1. Worsening extensive bibasilar alveolar consolidations consistent with probable worsening atelectasis and/or pneumonia. Clinical correlation is recommended. 2. Mild central pulmonary vascular congestion. 3. Small bilateral pleural effusions. 4. Cardiomegaly and coronary artery calcifications. 5. Anasarca. Jordan Jung MD Abdomen/Pelvis CT 03/17/17 0000 Signed Impressions: Service Date/Time: Friday, March 17, 2017 14:07 - CONCLUSION: 1. Worsening extensive alveolar consolidations within the posterior aspects of the lung bases consistent with atelectasis and/or pneumonia. Clinical correlation is recommended. 2. Diffuse anasarca. 3. Ascites. 4. Tiny bilateral pleural effusions. 5. Cardiomegaly. 6. Tiny fracture along the left side of the superior endplate of L5. Jordan Jung MD Neck CTA 03/16/17 1103 Signed Impressions: Service Date/Time: Thursday, March 16, 2017 11:01 - CONCLUSION: Normal carotid CTA Alex Terrell MD Head CTA 03/16/17 0000 Signed Impressions: Service Date/Time: Thursday, March 16, 2017 11:01 - CONCLUSION: Subarachnoid hemorrhage. Aneurysm is not identified. aHn Santillan MD FACR Femur X-Ray 03/15/17 0600 Signed Impressions: Service Date/Time: Wednesday, March 15, 2017 06:39 - CONCLUSION: Unremarkable examination of the left femur. Art Cottrell MD Tibia/Fibula X-Ray 03/15/17 0000 Signed Impressions: Service Date/Time: Wednesday, March 15, 2017 03:58 - CONCLUSION: Unremarkable examination of the right tibia. Art Cottrell MD Cervical Spine CT 03/15/17 0000 Signed Impressions: Service Date/Time: Wednesday, March 15, 2017 14:21 - CONCLUSION: 1. No fracture or subluxation. 2. Extensive soft tissue injury greater along the left shoulder not completely imaged. Thanh Eid MD Procedures * 03/15/17: Intubation * 03/15/17, guilherme hole with intracranial pressure monitor placement * 03/15/17, right subclavian line * 03/17/17, arterial line . 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 Spiritual: [employer] background, open to communications programmer visits Legal: The patient lacks capacity for decision-making, and she will not regain that capacity. Her 2 daughters Rocio and Brandyn are the proxy decision makers. Ethical issues impacting care: None . Important Contacts Daughter: Rocio Painting [phone] Daughter: Brandyn Honeycutt [phone] Stepson: Rodney Painting . Prognosis Prognosis is quite poor. The patient has been chronically ill for quite some time, and now has severe head and chest trauma. She would be appropriate for transition to comfort services if the focus of the family he falls in that direction. . Code Status: Full Code Plan * FULL CODE for now * DECISION-MAKING: The patient lacks capacity for decision-making, and she will not regain that capacity. Her 2 daughters Rocio and Brandyn are the proxy decision makers. * GOALS: 03/19/16 family meeting: I met with both of the patient's daughters and with the john Stevens, and in addition the patient's brother and 2 sisters-in -law are present with me and Hedy Sesay LCSW. We reviewed the patient's past history, her decline in recent months, the current injuries, the extent of the brain injury, the very poor prognosis, and the "best case scenario" of declining and dying in a usp bed in the upcoming weeks. We discussed resuscitation status and discussed the possibility of withdrawing life support to allow natural . Daughter Brandyn prefers DNR status at this time, and daughter Rocio is "not ready" to make that decision. The family plans to discuss the issues amongst themselves, considering what the patient herself would want if she was able to make decisions now, and we will talk more tomorrow. * SYMPTOMS: The patient's pain and dyspnea is being managed by propofol, fentanyl, Versed, and mechanical ventilation. I have no additional medication recommendations at this time. * Palliative Care will continue to follow the patient during this hospitalization. . Time Spent Total Floor Time (mins): 49 Face to Face Time (mins): 10 >50% Counseling/Coord of Care: Yes (d/w Dr. Suarez and with RN) Attestation To help prompt me to consider important information that might be impacting today's encounter and assessment, information from prior notes written by myself or my colleagues may have been "brought forward" into today's note. My signature on this note, however, is an attestation that I personally performed the exam, history, and/or decision-making noted today, and, unless otherwise indicated, the interactions with patient, family, and staff as well as the review of records all occurred today. I also attest that the listed assessment and stated plan reflect my best clinical judgment today based on the combination of historical information, prior notes, and today's exam/ interactions. When time spent is documented, it refers only to time spent today by the signer, or if indicated, combined time spent today by collaborating physician/nurse practitioner. Yoly Vazquez MD Mar 19, 2017 14:02
[2017-03-19] MEDS ORDERED: ROCURONIUM INJ 50 MG/5 ML VIAL ONE (14:22)
[2017-03-19] MEDS ORDERED: ROCURONIUM INJ 50 MG/5 ML VIAL IV PUSH ONE (14:30)
[2017-03-19] MEDS: niCARdipine INJ 25 MG in SODIUM CHLOR 0.9% 250 ML INJ 250 ML IV PRN ×2 (14:33→16:38)
[2017-03-19] MEDS: ARTIFICIAL TEARS OPTH SOLN 15 ML BTL EACH EYE SCH ×2 (14:33→21:34)
[2017-03-19] MEDS ORDERED: SODIUM CHLORIDE 23.4% INJ 240 MEQ in SYRINGE/BAG 1 EA IV ONE (14:45)
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
[2017-03-19] MEDS: AZITHROMYCIN INJ 500 MG in SODIUM CHLOR 0.9% 250 ML INJ 250 ML IV SCH (17:31)
[2017-03-19] MEDS: REMOVE OLD LIDOCAINE PATCH T-DERMAL SCH (20:53)
[2017-03-20] VITALS (19 sets, daily range): BP systolic 131–141; BP diastolic 67–71; PULSE 62–92; RESP 20; TEMP 98.1–99.8; O2SAT 97–100
[2017-03-20] MEDS: niCARdipine INJ 25 MG in SODIUM CHLOR 0.9% 250 ML INJ 250 ML IV PRN ×4 (00:06→22:16)
[2017-03-20] MEDS: PIPERACIL-TAZO 2.25 GM PREMIX 50 ML IV SCH ×3 (01:00→15:33)
[2017-03-20] MEDS: fentaNYL DRIP 250 ML IV PRN ×4 (01:01→22:15)
[2017-03-20] MEDS: RESP: ALBUTEROL 2.5 MG/IPRATROPIUM 0.5 MG NEB (SCH) NEB ×4 (03:18→19:27)
[2017-03-20] MEDS: RESP: ACETYLCYSTEINE 10% 30 ML NEB NEB SCH ×4 (03:19→19:27)
[2017-03-20] MEDS: FAMOTIDINE 20 MG/2 ML VIAL IV PUSH SCH ×2 (03:36→15:33)
[2017-03-20 03:40] LABS: AUTOMATED NEUTROPHIL # 6.4 TH/MM3 (1.8-7.7); BASOPHIL % 0.5 % (0.0-2.0); EOSINOPHIL # 0.5 TH/MM3 (0-0.4); EOSINOPHIL % 6.4 % (0.0-4.0); HEMATOCRIT 31.5 % (35.0-46.0); HEMOGLOBIN 10.6 GM/DL (11.6-15.3); LYMPH % 4.7 % (9.0-44.0); LYMPHOCYTE # 0.4 TH/MM3 (1.0-4.8); MEAN CELL VOLUME 90.8 FL (80.0-100.0); MEAN CORPUSCULAR HEMOGLOBIN 30.7 PG (27.0-34.0); MEAN CORPUSCULAR HGB CONC 33.7 % (32.0-36.0); MEAN PLATELET VOLUME 8.2 FL (7.0-11.0); MONO % 6.1 % (0.0-8.0); MONOCYTE # 0.5 TH/MM3 (0-0.9); NEUT % 82.3 % (16.0-70.0); PLATELET COUNT 106 TH/MM3 (150-450); RED BLOOD COUNT 3.47 MIL/MM3 (4.00-5.30); RED CELL DISTRIBUTION WIDTH 18.9 % (11.6-17.2); WHITE BLOOD COUNT 7.8 TH/MM3 (4.0-11.0)
[2017-03-20 04:03] LABS: BICARBONATE 30.4 MEQ/L (21.0-32.0); CALCIUM 8.8 MG/DL (8.5-10.1); CREATININE 2.68 MG/DL (0.50-1.00)
[2017-03-20] MEDS: PROPOFOL 1000 MG/100 ML INJ 100 ML IV PRN ×4 (04:25→22:16)
[2017-03-20] MEDS: ARTIFICIAL TEARS OPTH SOLN 15 ML BTL EACH EYE SCH ×3 (05:00→21:45)
[2017-03-20] MEDS: METHOCARBAMOL 500 MG TAB PO SCH ×3 (05:00→22:15)
[2017-03-20] MEDS: PROPRANOLOL HCL 10 MG TAB PO SCH ×3 (05:00→22:00)
[2017-03-20] MEDS: INSULIN NovoLIN REGULAR SUPPLEMENTAL SCALE SQ SCH ×5 (05:24→23:25)
[2017-03-20] MEDS: MIDAZOLAM 100 MG/NS 100 ML DRIP Premix IV PRN ×2 (06:16→16:43)
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
[2017-03-20] MEDS: POLYETHYLENE GLYCOL 17 GM PKG NG SCH ×2 (08:08→19:58)
[2017-03-20] MEDS: LIDOCAINE HCL 5% PATCH T-DERMAL SCH (08:08)
[2017-03-20] MEDS: CALCIUM ACETATE 667 MG CAP PO SCH ×3 (08:08→16:44)
[2017-03-20] MEDS: LACTULOSE SYRUP 20 GM/30 ML CUP PO SCH (08:08)
[2017-03-20] MEDS: DOCUSATE SODIUM 50 MG/SENNA 8.6 MG TAB PO SCH ×2 (08:08→19:58)
[2017-03-20] MEDS: CHLORHEXIDINE 0.12% (ORAL KIT) 15 ML CUP MT SCH ×2 (08:08→19:58)
[2017-03-20] MEDS: SODIUM CHLORIDE 0.9% FLUSH 10 ML FLUSH IV FLUSH SCH ×2 (08:08→19:58)
[2017-03-20] MEDS: levETIRAcetam INJ 500 MG in SODIUM CHLORIDE 0.9% INJ 100 ML IV SCH ×2 (08:08→19:58)
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
[2017-03-20 11:29] LABS: SODIUM (NA) 152 MEQ/L (136-145)
[2017-03-20] MEDS: LACTULOSE SYRUP 20 GM/30 ML CUP OG-TUBE SCH ×3 (11:31→23:31)
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
[2017-03-20 19:08] LABS: MAGNESIUM 2.3 MG/DL (1.5-2.5); PHOSPHORUS 2.3 MG/DL (2.5-4.9)
[2017-03-20] MEDS: REMOVE OLD LIDOCAINE PATCH T-DERMAL SCH (21:00)
[2017-03-21] VITALS (17 sets, daily range): BP systolic 137–168; BP diastolic 69–87; PULSE 68–93; RESP 20–24; TEMP 97.9–99.9; O2SAT 97–100
[2017-03-21] MEDS: PIPERACIL-TAZO 2.25 GM PREMIX 50 ML IV SCH ×3 (00:11→15:57)
[2017-03-21] MEDS: MIDAZOLAM 100 MG/NS 100 ML DRIP Premix IV PRN (02:46)
[2017-03-21] MEDS: niCARdipine INJ 25 MG in SODIUM CHLOR 0.9% 250 ML INJ 250 ML IV PRN ×3 (02:50→15:11)
[2017-03-21] MEDS: RESP: ALBUTEROL 2.5 MG/IPRATROPIUM 0.5 MG NEB (SCH) NEB ×4 (03:20→19:24)
[2017-03-21] MEDS: FAMOTIDINE 20 MG/2 ML VIAL IV PUSH SCH ×2 (04:01→15:10)
[2017-03-21] MEDS: PROPOFOL 1000 MG/100 ML INJ 100 ML IV PRN ×2 (04:01→21:35)
[2017-03-21 04:50] LABS: AUTOMATED NEUTROPHIL # 6.9 TH/MM3 (1.8-7.7); BASOPHIL # 0.1 TH/MM3 (0-0.2); BASOPHIL % 0.6 % (0.0-2.0); EOSINOPHIL # 0.5 TH/MM3 (0-0.4); EOSINOPHIL % 6.1 % (0.0-4.0); HEMATOCRIT 31.9 % (35.0-46.0); HEMOGLOBIN 10.9 GM/DL (11.6-15.3); LYMPH % 4.8 % (9.0-44.0); LYMPHOCYTE # 0.4 TH/MM3 (1.0-4.8); MEAN CELL VOLUME 91.3 FL (80.0-100.0); MEAN CORPUSCULAR HEMOGLOBIN 31.1 PG (27.0-34.0); MEAN CORPUSCULAR HGB CONC 34.1 % (32.0-36.0); MEAN PLATELET VOLUME 8.1 FL (7.0-11.0); MONO % 7.1 % (0.0-8.0); MONOCYTE # 0.6 TH/MM3 (0-0.9); NEUT % 81.4 % (16.0-70.0); PLATELET COUNT 127 TH/MM3 (150-450); RED BLOOD COUNT 3.49 MIL/MM3 (4.00-5.30); RED CELL DISTRIBUTION WIDTH 18.8 % (11.6-17.2); WHITE BLOOD COUNT 8.5 TH/MM3 (4.0-11.0)
[2017-03-21 05:04] LABS: BICARBONATE 27.3 MEQ/L (21.0-32.0); CREATININE 3.47 MG/DL (0.50-1.00)
[2017-03-21] MEDS: INSULIN NovoLIN REGULAR SUPPLEMENTAL SCALE SQ SCH ×4 (05:09→23:55)
[2017-03-21] MEDS: ARTIFICIAL TEARS OPTH SOLN 15 ML BTL EACH EYE SCH ×3 (05:13→20:10)
[2017-03-21] MEDS: PROPRANOLOL HCL 10 MG TAB PO SCH ×3 (05:13→21:27)
[2017-03-21] MEDS: LACTULOSE SYRUP 20 GM/30 ML CUP OG-TUBE SCH ×4 (05:13→23:43)
[2017-03-21] MEDS: METHOCARBAMOL 500 MG TAB PO SCH ×3 (05:13→21:25)
--- NOTE | 2017-03-21 05:50 | RADRPT ---
EXAM DATE/TIME: 03/21/2017 03:23 [place] COMPARISON: CHEST SINGLE AP, March 19, 2017, 4:15. INDICATIONS : Respiratory failure. MEDICAL HISTORY : Renal insufficiency. Hypertension. Hepatitis C. SURGICAL HISTORY : Aneurysm clip ENCOUNTER: Subsequent ACUITY: 1 week PAIN SCORE: Non-responsive. LOCATION: Bilateral chest FINDINGS: Endotracheal tube about 1 cm above juanito. NG enters stomach. Right central line in superior vena cav a. Cardiomegaly. Bilateral mostly basilar airspace disease and pleural effusions similar to March 19. No pneumothorax. CONCLUSION: 1. Support apparatus unchanged. Cardiomegaly with basilar airspace disease and pleural effusions pers ist. Rafael Phoenix MD on March 21, 2017 at 5:47 Board Certified Radiologist. This report was verified electronically.
[2017-03-21] MEDS: CHLORHEXIDINE 0.12% (ORAL KIT) 15 ML CUP MT SCH ×2 (08:00→20:00)
[2017-03-21] MEDS ORDERED: METHYLNALTREXONE BROMIDE 12 MG/0.6 ML VIAL SQ ONE (08:00)
[2017-03-21] MEDS ORDERED: GLYCERIN ADULT 2 GM SUPP RECTAL ONE (08:00)
[2017-03-21] MEDS ORDERED: MINERAL OIL EMULSION 55% PO ONE (08:00)
[2017-03-21] MEDS: DOCUSATE SODIUM 50 MG/SENNA 8.6 MG TAB PO SCH ×2 (08:03→20:09)
[2017-03-21] MEDS: levETIRAcetam INJ 500 MG in SODIUM CHLORIDE 0.9% INJ 100 ML IV SCH ×2 (08:03→20:10)
[2017-03-21] MEDS: SODIUM CHLORIDE 0.9% FLUSH 10 ML FLUSH IV FLUSH SCH ×2 (08:04→20:10)
[2017-03-21] MEDS: POLYETHYLENE GLYCOL 17 GM PKG NG SCH ×2 (08:04→20:10)
[2017-03-21] MEDS: LIDOCAINE HCL 5% PATCH T-DERMAL SCH (08:04)
[2017-03-21] MEDS: CALCIUM ACETATE 667 MG CAP PO SCH ×3 (08:04→17:46)
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
[2017-03-21] MEDS ORDERED: RASS Change Order XX ONE (10:00)
[2017-03-21] MEDS: ALBUMIN 25% INJ 100 ML IV PRN (11:12)
[2017-03-21] MEDS: EPOETIN ALFA 10,000 UNITS/ML VIAL IV PUSH PRN (11:12)
[2017-03-21] MEDS: GELATIN 12 MM/7 MM FOAM TOP PRN (11:13)
[2017-03-21] MEDS: amLODIPine BESYLATE 5 MG TAB PO SCH (11:29)
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
[2017-03-21] MEDS: ACETAMINOPHEN/HYDROcodone 325 MG/7.5 MG TAB PO PRN ×2 (16:28→20:09)
[2017-03-21] MEDS ORDERED: niCARdipine INJ 50 MG in SODIUM CHLORID 0.9% 500 ML INJ 480 ML IV PRN (19:00)
[2017-03-21] MEDS: LABETALOL HCL 100 MG/20 ML VIAL IV PUSH PRN (19:27)
[2017-03-21] MEDS: REMOVE OLD LIDOCAINE PATCH T-DERMAL SCH (20:10)
[2017-03-21] MEDS ORDERED: niCARdipine INJ 50 MG in SODIUM CHLOR 0.9% 250 ML INJ 230 ML IV PRN (23:45)
[2017-03-22] VITALS (17 sets, daily range): BP systolic 129–154; BP diastolic 65–87; PULSE 76–90; RESP 20; TEMP 98.6–100.4; O2SAT 97–100
[2017-03-22] MEDS: niCARdipine INJ 50 MG in SODIUM CHLOR 0.9% 250 ML INJ 230 ML IV PRN ×5 (01:10→23:24)
[2017-03-22] MEDS: LABETALOL HCL 100 MG/20 ML VIAL IV PUSH PRN ×3 (01:33→23:51)
[2017-03-22] MEDS: PIPERACIL-TAZO 2.25 GM PREMIX 50 ML IV SCH ×3 (02:18→16:18)
[2017-03-22] MEDS: RESP: ALBUTEROL 2.5 MG/IPRATROPIUM 0.5 MG NEB (SCH) NEB ×4 (03:12→19:56)
[2017-03-22] MEDS: FAMOTIDINE 20 MG/2 ML VIAL IV PUSH SCH ×2 (03:50→16:18)
[2017-03-22] MEDS: INSULIN NovoLIN REGULAR SUPPLEMENTAL SCALE SQ SCH ×3 (06:00→17:21)
[2017-03-22] MEDS: PROPRANOLOL HCL 10 MG TAB PO SCH ×3 (06:05→20:30)
[2017-03-22] MEDS: METHOCARBAMOL 500 MG TAB PO SCH ×3 (06:05→20:29)
[2017-03-22] MEDS: LACTULOSE SYRUP 20 GM/30 ML CUP OG-TUBE SCH ×3 (06:05→17:21)
[2017-03-22] MEDS: ARTIFICIAL TEARS OPTH SOLN 15 ML BTL EACH EYE SCH ×3 (06:05→22:00)
--- NOTE | 2017-03-22 06:41 | RADRPT ---
EXAM DATE/TIME: 03/22/2017 04:40 [place] COMPARISON: No previous studies available for comparison. INDICATIONS : Constipation. MEDICAL HISTORY : None. SURGICAL HISTORY : None. ENCOUNTER: Initial ACUITY: 2 days PAIN SCORE: 6/10 LOCATION: Bilateral lower quadrant FINDINGS: Supine view of the abdomen was performed. I see tip in the stomach. There is gaseous distention of samy wel predominantly in the large bowel. No free air is identified on this limited single view exam. Mil d basilar airspace disease. CONCLUSION: 1. Gaseous distention, predominantly colonic. NG tip in stomach. Rafael Phoenix MD on March 22, 2017 at 6:38 Board Certified Radiologist. This report was verified electronically.
[2017-03-22 06:51] LABS: AUTOMATED NEUTROPHIL # 9.3 TH/MM3 (1.8-7.7); BASOPHIL # 0.1 TH/MM3 (0-0.2); BASOPHIL % 0.6 % (0.0-2.0); EOSINOPHIL # 0.1 TH/MM3 (0-0.4); HEMATOCRIT 36.4 % (35.0-46.0); HEMOGLOBIN 12.3 GM/DL (11.6-15.3); LYMPH % 5.8 % (9.0-44.0); LYMPHOCYTE # 0.6 TH/MM3 (1.0-4.8); MEAN CELL VOLUME 90.5 FL (80.0-100.0); MEAN CORPUSCULAR HEMOGLOBIN 30.7 PG (27.0-34.0); MEAN CORPUSCULAR HGB CONC 33.9 % (32.0-36.0); MEAN PLATELET VOLUME 8.5 FL (7.0-11.0); MONO % 7.2 % (0.0-8.0); MONOCYTE # 0.8 TH/MM3 (0-0.9); NEUT % 85.4 % (16.0-70.0); PLATELET COUNT 186 TH/MM3 (150-450); RED BLOOD COUNT 4.02 MIL/MM3 (4.00-5.30); WHITE BLOOD COUNT 10.9 TH/MM3 (4.0-11.0)
[2017-03-22 07:16] LABS: BICARBONATE 25.4 MEQ/L (21.0-32.0); CALCIUM 9.7 MG/DL (8.5-10.1); CREATININE 3.32 MG/DL (0.50-1.00)
[2017-03-22] MEDS: PROPOFOL 1000 MG/100 ML INJ 100 ML IV PRN ×2 (07:19→17:39)
[2017-03-22] MEDS: CHLORHEXIDINE 0.12% (ORAL KIT) 15 ML CUP MT SCH ×2 (07:33→20:00)
[2017-03-22] MEDS: DOCUSATE SODIUM 50 MG/SENNA 8.6 MG TAB PO SCH ×2 (07:34→21:00)
[2017-03-22] MEDS: POLYETHYLENE GLYCOL 17 GM PKG NG SCH ×2 (07:34→21:00)
[2017-03-22] MEDS: SODIUM CHLORIDE 0.9% FLUSH 10 ML FLUSH IV FLUSH SCH ×2 (07:36→20:30)
[2017-03-22] MEDS: levETIRAcetam INJ 500 MG in SODIUM CHLORIDE 0.9% INJ 100 ML IV SCH ×2 (07:45→20:28)
[2017-03-22] MEDS: ACETAMINOPHEN/HYDROcodone 325 MG/7.5 MG TAB PO PRN ×3 (07:45→20:29)
[2017-03-22] MEDS: amLODIPine BESYLATE 5 MG TAB PO SCH (07:45)
[2017-03-22] MEDS: CALCIUM ACETATE 667 MG CAP PO SCH ×3 (07:45→17:21)
[2017-03-22] MEDS: LIDOCAINE HCL 5% PATCH T-DERMAL SCH (07:46)
[2017-03-22 08:36] LABS: BANDS 11 % (0-6); CORRECTED NUCLEATED RBC 1 /100 WBC (0-0); LYMPHOCYTES 7 % (9-44); MONOCYTES 7 % (0-8); MYELOCYTES 2 % (0-0); NEUTROPHIL # MANUAL DIFF 9.3 TH/MM3 (1.8-7.7); NUCLEATED RED BLOOD CELL 1 (0-0); POLYS (SEG NEUTROPHILS) 72 % (16-70)
[2017-03-22] MEDS ORDERED: REMOVE OLD CATAPRES (CLONIDINE) PATCH T-DERMAL SCH (10:00)
[2017-03-22] MEDS: cloNIDine HCL 0.1 MG/24 HR PATCH T-DERMAL SCH (11:00)
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
[2017-03-22] MEDS ORDERED: METHYLNALTREXONE BROMIDE 12 MG/0.6 ML VIAL SQ ONE (15:00)
[2017-03-22] MEDS ORDERED: BISACODYL 10 MG SUPP RECTAL ONE (15:00)
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
[2017-03-22] MEDS ORDERED: cloNIDine HCL 0.2 MG/24 HR PATCH T-DERMAL SCH (20:00)
[2017-03-22] MEDS: HEPARIN SODIUM - SQ 10,000 UNITS/ML VIAL SQ SCH (20:29)
[2017-03-22] MEDS: REMOVE OLD LIDOCAINE PATCH T-DERMAL SCH (21:12)
[2017-03-22 21:46] LABS: AUTOMATED NEUTROPHIL # 9.5 TH/MM3 (1.8-7.7); BASOPHIL # 0.1 TH/MM3 (0-0.2); BASOPHIL % 0.6 % (0.0-2.0); EOSINOPHIL # 0.1 TH/MM3 (0-0.4); EOSINOPHIL % 0.9 % (0.0-4.0); HEMATOCRIT 36.9 % (35.0-46.0); HEMOGLOBIN 12.3 GM/DL (11.6-15.3); LYMPH % 6.5 % (9.0-44.0); LYMPHOCYTE # 0.7 TH/MM3 (1.0-4.8); MEAN CELL VOLUME 89.9 FL (80.0-100.0); MEAN CORPUSCULAR HGB CONC 33.4 % (32.0-36.0); MEAN PLATELET VOLUME 8.7 FL (7.0-11.0); MONO % 7.1 % (0.0-8.0); MONOCYTE # 0.8 TH/MM3 (0-0.9); NEUT % 84.9 % (16.0-70.0); PLATELET COUNT 227 TH/MM3 (150-450); RED CELL DISTRIBUTION WIDTH 17.7 % (11.6-17.2); WHITE BLOOD COUNT 11.2 TH/MM3 (4.0-11.0)
[2017-03-22 22:10] LABS: ALBUMIN 2.4 GM/DL (3.4-5.0); DIRECT BILIRUBIN ADULT 0.3 MG/DL (0.0-0.2); MAGNESIUM 2.6 MG/DL (1.5-2.5); PHOSPHORUS 3.3 MG/DL (2.5-4.9)
[2017-03-22 22:12] LABS: INDIRECT BILIRUBIN 0.5 MG/DL (0.0-0.8); TOTAL BILIRUBIN ADULT 0.8 MG/DL (0.2-1.0); TOTAL PROTEIN 7.2 GM/DL (6.4-8.2)
[2017-03-23] VITALS (21 sets, daily range): BP systolic 136–166; BP diastolic 80–99; PULSE 86–109; RESP 14–22; TEMP 98.7–100.9; O2SAT 97–99
[2017-03-23] MEDS: INSULIN NovoLIN REGULAR SUPPLEMENTAL SCALE SQ SCH ×4 (00:17→18:00)
[2017-03-23] MEDS: LACTULOSE SYRUP 20 GM/30 ML CUP OG-TUBE SCH ×4 (00:19→18:00)
[2017-03-23] MEDS: PIPERACIL-TAZO 2.25 GM PREMIX 50 ML IV SCH ×3 (00:21→17:00)
[2017-03-23] MEDS: niCARdipine INJ 50 MG in SODIUM CHLOR 0.9% 250 ML INJ 230 ML IV PRN ×2 (03:04→07:16)
[2017-03-23] MEDS: cloNIDine HCL 0.1 MG TAB PO PRN ×3 (03:17→20:41)
--- NOTE | 2017-03-23 03:31 | RADRPT ---
EXAM DATE/TIME: 03/23/2017 02:52 [facility] COMPARISON: CHEST SINGLE AP, March 21, 2017, 3:23. INDICATIONS : Evaluate for pneumonia- Respiratory failure MEDICAL HISTORY : Hepatitis C. Hypertension Renal insufficiency, chronic. SURGICAL HISTORY : Aneurys clip ENCOUNTER: Subsequent ACUITY: 2 weeks PAIN SCORE: Non-responsive. LOCATION: Bilateral chest FINDINGS: There is improved aeration of the right lung base. Small bilateral effusions and lower lobe consolida tion again seen. Cardiomegaly. Endotracheal tube and enteric tube again noted. Right subclavian centr al venous catheter again seen. CONCLUSION: Improved aeration on the right. Art Cottrell MD on March 23, 2017 at 3:29 Board Certified Radiologist. This report was verified electronically.
[2017-03-23] MEDS: RESP: ALBUTEROL 2.5 MG/IPRATROPIUM 0.5 MG NEB (SCH) NEB ×4 (03:34→19:49)
[2017-03-23] MEDS: FAMOTIDINE 20 MG/2 ML VIAL IV PUSH SCH ×2 (04:07→16:30)
[2017-03-23 05:25] LABS: AUTOMATED NEUTROPHIL # 9.5 TH/MM3 (1.8-7.7); BASOPHIL # 0.1 TH/MM3 (0-0.2); BASOPHIL % 0.7 % (0.0-2.0); EOSINOPHIL # 0.2 TH/MM3 (0-0.4); EOSINOPHIL % 1.3 % (0.0-4.0); HEMATOCRIT 36.7 % (35.0-46.0); HEMOGLOBIN 12.6 GM/DL (11.6-15.3); LYMPHOCYTE # 0.8 TH/MM3 (1.0-4.8); MEAN CORPUSCULAR HEMOGLOBIN 30.9 PG (27.0-34.0); MEAN CORPUSCULAR HGB CONC 34.4 % (32.0-36.0); MEAN PLATELET VOLUME 8.1 FL (7.0-11.0); MONOCYTE # 0.9 TH/MM3 (0-0.9); PLATELET COUNT 250 TH/MM3 (150-450); RED BLOOD COUNT 4.08 MIL/MM3 (4.00-5.30); RED CELL DISTRIBUTION WIDTH 17.8 % (11.6-17.2); WHITE BLOOD COUNT 11.5 TH/MM3 (4.0-11.0)
[2017-03-23] MEDS: fentaNYL DRIP 250 ML IV PRN (05:45)
[2017-03-23 05:47] LABS: ALBUMIN 2.6 GM/DL (3.4-5.0); ALKALINE PHOSPHATASE 168 U/L (45-117); ALT (GPT) 22 U/L (10-53); AST (GOT) 27 U/L (15-37); BICARBONATE 23.9 MEQ/L (21.0-32.0); BLOOD UREA NITROGEN 66 MG/DL (7-18); CALCIUM 9.2 MG/DL (8.5-10.1); CHLORIDE 110 MEQ/L (98-107); CREATININE 3.87 MG/DL (0.50-1.00); GLOMERULAR FILTRATION RATE 12 ML/MIN (>89); GLUCOSE,RANDOM 114 MG/DL (74-106); MAGNESIUM 2.6 MG/DL (1.5-2.5); PHOSPHORUS 3.6 MG/DL (2.5-4.9); SODIUM (NA) 145 MEQ/L (136-145); TOTAL BILIRUBIN ADULT 0.8 MG/DL (0.2-1.0); TOTAL PROTEIN 7.2 GM/DL (6.4-8.2)
[2017-03-23] MEDS: METHOCARBAMOL 500 MG TAB PO SCH ×3 (05:54→20:16)
[2017-03-23] MEDS: PROPRANOLOL HCL 10 MG TAB PO SCH (05:54)
[2017-03-23] MEDS: ARTIFICIAL TEARS OPTH SOLN 15 ML BTL EACH EYE SCH ×3 (06:00→20:16)
[2017-03-23] MEDS: LABETALOL HCL 100 MG/20 ML VIAL IV PUSH PRN ×3 (08:00→21:47)
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
[2017-03-23] MEDS: SODIUM CHLORIDE 0.9% FLUSH 10 ML FLUSH IV FLUSH SCH ×2 (09:00→20:13)
[2017-03-23] MEDS: CHLORHEXIDINE 0.12% (ORAL KIT) 15 ML CUP MT SCH ×2 (09:02→20:00)
[2017-03-23] MEDS: CLEVIDIPINE INJ 50 ML IV PRN ×4 (09:09→22:43)
[2017-03-23] MEDS ORDERED: DIATRIZOATE MEGLUM/DIATRIZOATE SOD 9 ML CUP PO ONE (09:30)
[2017-03-23] MEDS: HEPARIN SODIUM - SQ 10,000 UNITS/ML VIAL SQ SCH ×2 (09:31→20:14)
[2017-03-23] MEDS: CALCIUM ACETATE 667 MG CAP PO SCH ×3 (09:31→18:00)
[2017-03-23] MEDS: POLYETHYLENE GLYCOL 17 GM PKG NG SCH ×2 (09:32→20:14)
[2017-03-23] MEDS: LIDOCAINE HCL 5% PATCH T-DERMAL SCH (09:32)
[2017-03-23] MEDS: METOCLOPRAMIDE HCL 10 MG/2 ML VIAL IV PUSH SCH ×2 (09:32→17:00)
[2017-03-23] MEDS: DOCUSATE SODIUM 50 MG/SENNA 8.6 MG TAB PO SCH ×2 (09:32→20:14)
[2017-03-23] MEDS: ACETAMINOPHEN/HYDROcodone 325 MG/7.5 MG TAB PO PRN ×3 (09:32→23:05)
[2017-03-23] MEDS: 3% SALINE INJ 500 ML IV SCH (09:39)
[2017-03-23] MEDS ORDERED: METOPROLOL TARTRATE 5 MG/5 ML VIAL IV PUSH SCH (10:00)
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
[2017-03-23] MEDS: levETIRAcetam INJ 500 MG in SODIUM CHLORIDE 0.9% INJ 100 ML IV SCH ×2 (10:59→20:13)
[2017-03-23] MEDS ORDERED: LORazepam 2 MG/ML VIAL IV PUSH SCH (12:00)
[2017-03-23] MEDS ORDERED: HYDROmorphone HCL PF 2 MG/ML VIAL IV PUSH SCH (12:00)
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
[2017-03-23] MEDS ORDERED: PROPRANOLOL HCL 20 MG TAB PO SCH (14:00)
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
--- NOTE | 2017-03-23 16:24 | HHI.HCSW ---
Grain Elevator Worker Visit Significant Family/Friend Spoke with daughter Rocio at Ms. Painting's bedside. She is appropriately struggling and tearful throughout conversation. Verbalizes understanding of ongoing tests. Requests a medical update. Attempting to set up another family meeting to update daughters and family all together. Provided palliative care contact information, plan to follow-up tomorrow, Friday 03/24 to schedule family meeting in coming day(s) when family can coordinate their schedules. . Elaine Sesay DIESEL ENGINE I PIPE FITTER, AIRPORT TOWER CONTROLLER Mar 23, 2017 16:24
[2017-03-23] MEDS: CARVEDILOL 12.5 MG TAB PO SCH ×2 (18:00→20:13)
[2017-03-23] MEDS ORDERED: IOHEXOL 350 MG/ML 10 ML VIAL (for RAD DIAG) IVCONTRAST ONE (18:20)
--- NOTE | 2017-03-23 18:45 | RADRPT ---
EXAM DATE/TIME: 03/23/2017 18:05 [facility] COMPARISON: No previous studies available for comparison. INDICATIONS : Ileus IV CONTRAST: 71 cc Omnipaque 350 (iohexol) IV ORAL CONTRAST: Prescribed oral contrast ingested. RADIATION DOSE: 16.10 CTDIvol (mGy) MEDICAL HISTORY : Cardiovascular disease. Hypertension. Hepatitis C.Polycystic kidney,renal failure SURGICAL HISTORY : None. ENCOUNTER: Initial ACUITY: 1 day PAIN SCALE: 4/10 LOCATION: Abdomen TECHNIQUE: Volumetric scanning of the abdomen and pelvis was performed. Using automated exposure control and ad justment of the mA and/or kV according to patient size, radiation dose was kept as low as reasonably achievable to obtain optimal diagnostic quality images. DICOM format image data is available electro nically for review and comparison. FINDINGS: Compare March 17. Consolidation in both lungs remains with small bilateral pleural effusions. Cardi omegaly. There is periportal edema in the liver. Spleen, adrenals unremarkable. Polycystic kidneys ag ain noted. There is mild pancreatic ductal dilatation. No calcified gallstones. Common bile duct is d ilated to about [address] findings of choledocholithiasis. There is diffuse anasarca. There is moderate ascites which is worsening since March 17. Small left superior plate fracture at L5 is stable. Diffuse colonic ileus. CONCLUSION: 1. Dependent consolidation and small effusions in the lungs similar to prior exam. 2. Worsening anasarca and ascites compared with the prior exam. 3. Colonic ileus. Dilatation of common bile duct and pancreatic duct similar to prior exam. 4. Stable small superior endplate fracture at L5. aRfael Phoenix MD on March 23, 2017 at 18:37 Board Certified Radiologist. This report was verified electronically.
[2017-03-23] MEDS: REMOVE OLD LIDOCAINE PATCH T-DERMAL SCH (20:15)
[2017-03-23] MEDS ORDERED: CARVEDILOL 12.5 MG TAB PO SCH (21:00)
[2017-03-24] VITALS (16 sets, daily range): BP systolic 148–178; BP diastolic 85–99; PULSE 89–105; RESP 15–22; TEMP 98–99.3; O2SAT 95–99
[2017-03-24] MEDS: PIPERACIL-TAZO 2.25 GM PREMIX 50 ML IV SCH ×4 (01:00→23:55)
[2017-03-24] MEDS: CLEVIDIPINE INJ 50 ML IV PRN ×13 (01:15→23:12)
[2017-03-24] MEDS: METOCLOPRAMIDE HCL 10 MG/2 ML VIAL IV PUSH SCH ×4 (01:20→23:55)
[2017-03-24] MEDS: LACTULOSE SYRUP 20 GM/30 ML CUP OG-TUBE SCH ×5 (01:20→23:54)
[2017-03-24] MEDS: RESP: ALBUTEROL 2.5 MG/IPRATROPIUM 0.5 MG NEB (SCH) NEB ×4 (03:54→19:42)
[2017-03-24] MEDS: cloNIDine HCL 0.1 MG TAB PO PRN ×3 (04:35→23:54)
[2017-03-24] MEDS: FAMOTIDINE 20 MG/2 ML VIAL IV PUSH SCH ×2 (04:35→15:46)
[2017-03-24] MEDS: LABETALOL HCL 100 MG/20 ML VIAL IV PUSH PRN ×3 (04:35→15:14)
[2017-03-24] MEDS: METHOCARBAMOL 500 MG TAB PO SCH ×3 (05:11→20:38)
[2017-03-24 05:29] LABS: AUTOMATED NEUTROPHIL # 9.7 TH/MM3 (1.8-7.7); BASOPHIL # 0.1 TH/MM3 (0-0.2); EOSINOPHIL # 0.3 TH/MM3 (0-0.4); EOSINOPHIL % 2.3 % (0.0-4.0); HEMATOCRIT 37.2 % (35.0-46.0); HEMOGLOBIN 12.6 GM/DL (11.6-15.3); LYMPH % 7.3 % (9.0-44.0); LYMPHOCYTE # 0.9 TH/MM3 (1.0-4.8); MEAN CORPUSCULAR HEMOGLOBIN 30.9 PG (27.0-34.0); MEAN CORPUSCULAR HGB CONC 33.9 % (32.0-36.0); MEAN PLATELET VOLUME 8.1 FL (7.0-11.0); MONO % 6.9 % (0.0-8.0); MONOCYTE # 0.8 TH/MM3 (0-0.9); NEUT % 82.5 % (16.0-70.0); PLATELET COUNT 256 TH/MM3 (150-450); RED BLOOD COUNT 4.08 MIL/MM3 (4.00-5.30); RED CELL DISTRIBUTION WIDTH 17.7 % (11.6-17.2); WHITE BLOOD COUNT 11.7 TH/MM3 (4.0-11.0)
[2017-03-24] MEDS: INSULIN NovoLIN REGULAR SUPPLEMENTAL SCALE SQ SCH ×4 (06:00→17:25)
[2017-03-24] MEDS: ARTIFICIAL TEARS OPTH SOLN 15 ML BTL EACH EYE SCH ×3 (06:32→20:41)
[2017-03-24 06:33] LABS: ALBUMIN 2.4 GM/DL (3.4-5.0); ALKALINE PHOSPHATASE 146 U/L (45-117); ALT (GPT) 24 U/L (10-53); AST (GOT) 29 U/L (15-37); CALCIUM 8.6 MG/DL (8.5-10.1); CHLORIDE 111 MEQ/L (98-107); CREATININE 4.64 MG/DL (0.50-1.00); GLOMERULAR FILTRATION RATE 10 ML/MIN (>89); GLUCOSE,RANDOM 116 MG/DL (74-106); MAGNESIUM 2.6 MG/DL (1.5-2.5); PHOSPHORUS 4.8 MG/DL (2.5-4.9); SODIUM (NA) 146 MEQ/L (136-145); TOTAL BILIRUBIN ADULT 0.8 MG/DL (0.2-1.0); TOTAL PROTEIN 6.6 GM/DL (6.4-8.2)
[2017-03-24 06:55] LABS: BLOOD UREA NITROGEN 79 MG/DL (7-18)
[2017-03-24 07:49] LABS: BANDS 5 % (0-6); LYMPHOCYTES 6 % (9-44); METAMYELOCYTES 2 % (0-1); MONOCYTES 5 % (0-8); NEUTROPHIL # MANUAL DIFF 10.2 TH/MM3 (1.8-7.7); POLYS (SEG NEUTROPHILS) 80 % (16-70)
[2017-03-24 07:51] LABS: TOXIC GRANULATION 1+ (NORMAL)
[2017-03-24 07:52] LABS: OVALOCYTES 1+ (NORMAL)
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
[2017-03-24] MEDS: CHLORHEXIDINE 0.12% (ORAL KIT) 15 ML CUP MT SCH ×2 (08:00→20:36)
[2017-03-24] MEDS: ALBUMIN 25% INJ 100 ML IV PRN (08:27)
[2017-03-24] MEDS: HEPARIN SODIUM - SQ 10,000 UNITS/ML VIAL SQ SCH ×2 (09:00→20:40)
[2017-03-24] MEDS: SODIUM CHLORIDE 0.9% FLUSH 10 ML FLUSH IV FLUSH SCH ×2 (09:00→20:39)
[2017-03-24] MEDS: POLYETHYLENE GLYCOL 17 GM PKG NG SCH ×2 (09:00→20:39)
[2017-03-24] MEDS: LIDOCAINE HCL 5% PATCH T-DERMAL SCH (09:00)
[2017-03-24] MEDS: CARVEDILOL 12.5 MG TAB PO SCH ×2 (09:00→20:38)
[2017-03-24] MEDS: levETIRAcetam INJ 500 MG in SODIUM CHLORIDE 0.9% INJ 100 ML IV SCH ×3 (09:00→20:39)
[2017-03-24] MEDS: DOCUSATE SODIUM 50 MG/SENNA 8.6 MG TAB PO SCH ×2 (09:00→20:37)
[2017-03-24] MEDS: CALCIUM ACETATE 667 MG CAP PO SCH ×3 (09:00→17:20)
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
[2017-03-24] MEDS ORDERED: METHYLNALTREXONE BROMIDE 12 MG/0.6 ML VIAL SQ ONE (11:45)
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
[2017-03-24] MEDS: METOPROLOL TARTRATE 5 MG/5 ML VIAL IV PUSH SCH ×3 (12:00→23:53)
--- NOTE | 2017-03-24 12:49 | HHI.HCPN ---
Spoke with daughter Rocio via telephone to inquire about family meeting. She is attempting to coordinate with family, tentatively scheduled for () sometime around 430. Rocio inquires about if a repeat CT scan for Ms. Painting's head can be done. States family feels Ms. Painting is opening her eyes , beginning to follow some commands and move extremities. Requested palliative care MD follow-up to answer medical questions. Palliative care will continue to follow throughout hospitalization. Elaine Sesay MSW, [employer] Mar 24, 2017 12:49
[2017-03-24] MEDS: 3% SALINE INJ 500 ML IV SCH (12:52)
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
--- NOTE | 2017-03-24 15:05 | HHI.NSPN ---
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 ONCE RECTAL Last administered on 03/21at 11:29; Start 03/21/17 at 08:00; Stop 03/21/17 at 08:17; Status DC Fentanyl Citrate 250 ml @ 5 mls/hr TITRATE PRN IV SEDATION Last administered on 03/26/17at 04:14; Start 03/21/17 at 09:30; Stop 03/26/17 at 09:11; Status DC Propofol 100 ml @ 1.743 mls/ hr TITRATE PRN IV SEDATION Last administered on 17:39; Start 03/21/17 at 09:30; Stop 03/26/17 at 09:11; Status DC Amlodipine Besylate (Norvasc) 5 mg DAILY PO Last administered on 03/22/17at 07: 45; Start 03/21/17 at 09:30; Stop 03/22/17 at 19:42; Status DC Miscellaneous Information (RASS Change Order) 1 ea ONCE ONCE XX Last administered on 03/21/17at 10:00; Start 03/21/17 at 10:00; Stop 03/21/17 at 10:24 ; Status DC Nicardipine HCl 50 mg/Sodium Chloride 500 ml @ 50 mls/hr TITRATE PRN IV Blood pressure management Last administered on 03/21/17at 20:05; Start 03/21/17 at 19: 00; Stop 03/21/17 at 23:55; Status DC Fentanyl Citrate (fentaNYL INJ) 50 mcg Q1H PRN IV PUSH PAIN/AGITATION Last administered on 03/26/17at 14:50; Start 03/21/17 at 21:15 Nicardipine HCl 50 mg/Sodium Chloride 250 ml @ 25 mls/hr TITRATE PRN IV Blood pressure management; Start 03/21/17 at 23:45; Stop 03/21/17 at 23:58; Status DC Nicardipine HCl 50 mg/Sodium Chloride 250 ml @ 25 mls/hr TITRATE PRN IV Blood pressure management Last administered on 03/23/17at 07:16; Start 03/21/17 at 23: 45; Stop 03/23/17 at 08:17; Status DC Heparin Sodium (Porcine) (Heparin Inj) 5,000 units Q12HR SQ Last administered on 03/26/17at 09:48; Start 03/22/17 at 21:00 Albuterol/ Ipratropium (Duoneb Neb) 1 ampule Q6HR NEB NEB Last administered on 03/26/17at 03:40; Start 03/22/17 at 16:00; Stop 03/26/17 at 07:07; Status DC Bisacodyl (Dulcolax Supp) 10 mg ONCE ONCE RECTAL Last administered on at 16:18; Start 03/22/17 at 15:00; Stop 03/22/17 at 15:05; Status DC Methylnaltrexone [place] (Relistor Inj) 12 mg ONCE ONCE SQ Last administered on 03/22/17at 16:18; Start 03/22/17 at 15:00; Stop 03/22/17 at 15:05; Status DC Labetalol HCl (Trandate Inj) 10 mg Q4HR PRN IV PUSH SBP >160 Last administered on 03/24/17at 15:14; Start 03/22/17 at 19:45; Stop 03/24/17 at 18:30; Status DC Clonidine (Catapres-Tts 0.2 Mg Patch.7d) 1 patch Q7D T-DERMAL Last administered on 03/22/17at 22:20; Start 03/22/17 at 20:00; Stop 03/25/17 at 09:27 ; Status DC Miscellaneous Information 1 Q7D T-DERMAL ; Start 03/29/17 at 20:00; Stop at 20:00; Status DC Clonidine (Catapres) 0.1 mg Q6H PRN PO for BP > 160 systolic Last administered on 03/25/17at 21:06; Start 03/23/17 at 03:15; Stop 03/26/17 at 07:09 ; Status DC Clevidipine 50 ml @ 2 mls/hr TITRATE PRN IV Blood Pressure Management Last administered on 03/25/17at 07:13; Start 03/23/17 at 09:00; Stop 03/25/17 at 09:27 ; Status DC Propranolol HCl (Inderal) 20 mg Q8HR PO ; Start 03/23/17 at 14:00; Stop at 14:00; Status DC Sodium Chloride 500 ml @ 30 mls/hr CONTINUOUS IV Last administered on at 12:52; Start 03/23/17 at 09:00; Stop 03/25/17 at 16:57; Status DC Metoclopramide HCl (Reglan Inj) 5 mg Q8H IV PUSH Last administered on at 09:49; Start 03/23/17 at 09:00 Metoprolol Tartrate (Lopressor Inj) 5 mg Q6H IV PUSH Last administered on at 10:00; Start 03/23/17 at 10:00; Stop 03/24/17 at 11:16; Status DC Diatrizoate Meglum/ Diatrizoate Sod ( Gastroview Liq) 18 ml ONCE ONCE PO Last administered on 03/23/17at 10:59; Start 03/23/17 at 09:30; Stop 03/23/17 at 09:31; Status DC Hydromorphone HCl (Dilaudid Pf Inj) 0.75 mg Q4HR IV PUSH ; Start 03/23/17 at 12: 00; Status UNV Lorazepam (Ativan Inj) 1 mg Q4HR IV PUSH ; Start 03/23/17 at 12:00; Status UNV Carvedilol (Coreg) 12.5 mg Q12HR PO ; Start 03/23/17 at 21:00; Stop 03/23/17 at 21:00; Status DC Carvedilol (Coreg) 12.5 mg Q12HR PO Last administered on 03/24/17at 09:00; Start 03/23/17 at 18:00; Stop 03/24/17 at 11:43; Status DC Iohexol (Omnipaque 350 Inj) 71 ml STK-MED ONCE IVCONTRAST Last administered on 03/23/17at 18:20; Start 03/23/17 at 18:20; Stop 03/23/17 at 18:21; Status DC Metoprolol Tartrate (Lopressor Inj) 5 mg Q6H IV PUSH Last administered on at 12:46; Start 03/24/17 at 12:00 Oxycodone HCl (Roxicodone) 5 mg Q4HR PO Last administered on 03/26/17at 12:46; Start 03/24/17 at 12:00 Carvedilol (Coreg) 25 mg Q12HR PO Last administered on 03/26/17at 09:54; Start 03/24/17 at 21:00 Methylnaltrexone [place] (Relistor Inj) 12 mg ONCE ONCE SQ Last administered on 03/24/17at 13:54; Start 03/24/17 at 11:45; Stop 03/24/17 at 12:36; Status DC Hydralazine HCl (Apresoline Inj) 20 mg Q4H PRN IV PUSH SBP>160, DBP>90 Last administered on 03/26/17at 14:51; Start 03/25/17 at 03:30 Labetalol HCl (Trandate Inj) 10 mg Q4H PRN IV PUSH SBP>160, DBP>90 Last administered on 03/25/17at 04:05; Start 03/25/17 at 03:30; Stop 03/25/17 at 15:35 ; Status DC Lisinopril (Prinivil) 10 mg Q12HR PO Last administered on 03/25/17at 12:37; Start 03/25/17 at 09:30; Stop 03/25/17 at 15:36; Status DC Clonidine (Catapres-Tts 0.3 Mg Patch.7d) 1 patch Q7D T-DERMAL Last administered on 03/25/17at 13:39; Start 03/25/17 at 12:00 Famotidine (Pepcid) 10 mg Q12H NG Last administered on 03/26/17at 04:14; Start 03/25/17 at 16:00 Levetriacetam (Keppra) 500 mg Q12HR PO Last administered on 03/25/17at 21:06; Start 03/25/17 at 21:00 Miscellaneous Information 1 Q7D T-DERMAL ; Start 04/01/17 at 12:00 Levofloxacin/ Dextrose 50 ml @ 50 mls/hr Q24H IV Last administered on at 15:49; Start 03/25/17 at 15:00; Stop 03/26/17 at 10:30; Status DC Labetalol HCl (Trandate Inj) 10 mg Q1HR PRN IV PUSH SBP>160, DBP>90; Start at 15:45 Lisinopril (Prinivil) 20 mg Q12HR PO Last administered on 03/25/17at 21:07; Start 03/25/17 at 21:00; Stop 03/26/17 at 07:09; Status DC Nicardipine HCl 25 mg/Sodium Chloride 250 ml @ 50 mls/hr TITRATE PRN IV Blood Pressure Management Last administered on 03/26/17at 14:50; Start 03/25/17 at 17: 15 Albuterol/ Ipratropium (Duoneb Neb) 1 ampule Q6HR NEB NEB Last administered on 03/26/17at 14:32; Start 03/26/17 at 10:00 Clonidine (Catapres) 0.1 mg Q4HR PRN PO for BP > 160 systolic ; Start 03/26/17 at 07:15 Lisinopril (Prinivil) 40 mg Q12HR PO Last administered on 03/26/17at 09:47; Start 03/26/17 at 09:00 Levofloxacin/ Dextrose 50 ml @ 50 mls/hr Q24H IV ; Start 03/26/17 at 10:30; Stop 03/26/17 at 10:31; Status DC Levofloxacin/ Dextrose 50 ml @ 50 mls/hr Q24H IV ; Start 03/27/17 at 09:00 (Saulo iKng MD) Medical Decision Making MDM Remarks 56-year-old female traumatic brain injury, diffuse subarachnoid hemorrhage, left subdural hematoma, status post placement of intracranial pressure monitor to 03/15/17, dc'ed 03/20/17 Follow-up CT brain yesterday afternoon shows increased size of right extra- axial fluid collection with mild mass-effect, stable serial f/u CT Heads 03/16 and 03/17 History of remote aneurysm clipping Renal failure on hemodialysis Last Impressions Chest X-Ray 03/23/17 0600 Signed Impressions: Service Date/Time: Thursday, March 23, 2017 02:52 - CONCLUSION: Improved aeration on the right. Art Cottrell MD Abdomen X-Ray 03/22/17 0600 Signed Impressions: Service Date/Time: Wednesday, March 22, 2017 04:40 - CONCLUSION: 1. Gaseous distention, predominantly colonic. NG tip in stomach. Rafael Phoenix MD Head CT 03/17/17 0000 Signed Impressions: Service Date/Time: Friday, March 17, 2017 14:00 - CONCLUSION: 1. Stable postoperative changes. 2. Unchanged subarachnoid hemorrhage with no ventriculomegaly. Alfredo Rodriguez MD Chest CT 03/17/17 0000 Signed Impressions: Service Date/Time: Friday, March 17, 2017 14:10 - CONCLUSION: 1. Worsening extensive bibasilar alveolar consolidations consistent with probable worsening atelectasis and/or pneumonia. Clinical correlation is recommended. 2. Mild central pulmonary vascular congestion. 3. Small bilateral pleural effusions. 4. Cardiomegaly and coronary artery calcifications. 5. Anasarca. Jordan Jung MD Abdomen/Pelvis CT 03/17/17 0000 Signed Impressions: Service Date/Time: Friday, March 17, 2017 14:07 - CONCLUSION: 1. Worsening extensive alveolar consolidations within the posterior aspects of the lung bases consistent with atelectasis and/or pneumonia. Clinical correlation is recommended. 2. Diffuse anasarca. 3. Ascites. 4. Tiny bilateral pleural effusions. 5. Cardiomegaly. 6. Tiny fracture along the left side of the superior endplate of L5. Jordan Jung MD Neck CTA 03/16/17 1103 Signed Impressions: Service Date/Time: Thursday, March 16, 2017 11:01 - CONCLUSION: Normal carotid CTA Alex Terrell MD Head CTA 03/16/17 0000 Signed Impressions: Service Date/Time: Thursday, March 16, 2017 11:01 - CONCLUSION: Subarachnoid hemorrhage. Aneurysm is not identified. Han Santillan MD FACR Femur X-Ray 03/15/17 0600 Signed Impressions: Service Date/Time: Wednesday, March 15, 2017 06:39 - CONCLUSION: Unremarkable examination of the left femur. Art Cottrell MD Tibia/Fibula X-Ray 03/15/17 0000 Signed Impressions: Service Date/Time: Wednesday, March 15, 2017 03:58 - CONCLUSION: Unremarkable examination of the right tibia. Art Cottrell MD Cervical Spine CT 03/15/17 0000 Signed Impressions: Service Date/Time: Wednesday, March 15, 2017 14:21 - CONCLUSION: 1. No fracture or subluxation. 2. Extensive soft tissue injury greater along the left shoulder not completely imaged. Thanh Eid MD (Libia Jeffery) MDM Remarks Last [address] 03/25/17 06 Signed Impressions: Service Date/Time: Saturday, March 25, 2017 05:01 - CONCLUSION: Postoperative changes are noted with increasing hypodense subdural collections and decreased subarachnoid hemorrhage. Art Cottrell MD Abdomen X-Ray 03/25/17 06 Signed Impressions: Service Date/Time: Saturday, March 25, 2017 04:31 - CONCLUSION: Decreased bowel distention however abnormal loops of dilated small bowel remain. Art Cottrell MD (Saulo King MD) Plan Plan Remarks continue neuro check sedation off as tolerated and follow up neuro exam cont critical care management Kera for seizure prophylaxis palliative care following (Libia Jeffery) Attending Statement Continue neuro checks. (Saulo King MD) Libia Jeffery Mar 24, 2017 15:05 Saulo King MD Mar 26, 2017 15:00
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
[2017-03-24] MEDS: fentaNYL DRIP 250 ML IV PRN (18:45)
[2017-03-24] MEDS: REMOVE OLD LIDOCAINE PATCH T-DERMAL SCH (20:40)
[2017-03-25] VITALS (14 sets, daily range): BP systolic 150–194; BP diastolic 79–100; PULSE 16–110; RESP 14–23; TEMP 98–101; O2SAT 93–100
[2017-03-25] MEDS: CLEVIDIPINE INJ 50 ML IV PRN ×6 (00:40→07:13)
[2017-03-25] MEDS ORDERED: LABETALOL HCL 100 MG/20 ML VIAL IV PUSH PRN (03:30)
[2017-03-25] MEDS: hydrALAZINE HCL 20 MG/ML VIAL IV PUSH PRN ×2 (03:47→13:14)
[2017-03-25] MEDS: FAMOTIDINE 20 MG/2 ML VIAL IV PUSH SCH (03:47)
[2017-03-25] MEDS: ACETAMINOPHEN 1000 MG/100 ML 100 ML IV PRN (03:48)
[2017-03-25] MEDS: RESP: ALBUTEROL 2.5 MG/IPRATROPIUM 0.5 MG NEB (SCH) NEB ×4 (04:38→20:01)
--- NOTE | 2017-03-25 05:46 | RADRPT ---
EXAM DATE/TIME: 03/25/2017 04:31 [facility] COMPARISON: KUB March 22, 2017.. INDICATIONS : Abdominal distention. MEDICAL HISTORY : Cardiovascular disease. Hypertension. Hepatitis C.Polycystic kidney,renal failure SURGICAL HISTORY : None. ENCOUNTER: Subsequent ACUITY: 4 - 6 days PAIN SCORE: Non-responsive. LOCATION: Bilateral abdomen FINDINGS: There is moderate gaseous distention of small bowel loops. This is decreased in prominence from the p revious study. NG tube in place. CONCLUSION: Decreased bowel distention however abnormal loops of dilated small bowel remain. Art Cottrell MD on March 25, 2017 at 5:44 Board Certified Radiologist. This report was verified electronically.
--- NOTE | 2017-03-25 05:57 | RADRPT ---
EXAM DATE/TIME: 03/25/2017 05:01 [facility] COMPARISON: CT BRAIN W/O CONTRAST, March 17, 2017, 14:00. INDICATIONS : Follow up subarachnoid hemorrhage. RADIATION DOSE: 52.13 CTDIvol (mGy) ; Patient motion MEDICAL HISTORY : Hypertension. Hepatitis C. Renal insufficiency.Subarachnoid hemorrhage. SURGICAL HISTORY : Aneurysm clip. ENCOUNTER: Subsequent ACUITY: 1 week PAIN SCALE: Non-responsive LOCATION: cranial TECHNIQUE: Multiple contiguous axial images were obtained of the head. Using automated exposure control and adj ustment of the mA and/or kV according to patient size, radiation dose was kept as low as reasonably a chievable to obtain optimal diagnostic quality images. DICOM format image data is available electro nically for review and comparison. FINDINGS: There are bilateral hypodense subdural collections, and diffuse subarachnoid hemorrhage again seen. T he right subdural collection is increased in transverse width with mild underlying mass effect on the right cerebral hemisphere. Maximal transverse width of approximately 2.6 cm is noted on axial image 24 the right frontal region. There is midline shift from right to left of 3.9 mm. Right temporal scal p soft tissue swelling. There is slightly decreased subarachnoid blood on the current study. Bilatera l mastoid air cell and middle ear opacification. Left sphenoid and right sphenoid sinus air fluid lev els. Left middle cranial fossa aneurysm clipping. Left temporal craniotomy. CONCLUSION: Postoperative changes are noted with increasing hypodense subdural collections and decreased subarach noid hemorrhage. Art Cottrell MD on March 25, 2017 at 5:54 Board Certified Radiologist. This report was verified electronically.
[2017-03-25] MEDS: INSULIN NovoLIN REGULAR SUPPLEMENTAL SCALE SQ SCH ×4 (06:00→18:00)
[2017-03-25] MEDS: LACTULOSE SYRUP 20 GM/30 ML CUP OG-TUBE SCH ×3 (06:00→17:24)
[2017-03-25] MEDS: METHOCARBAMOL 500 MG TAB PO SCH ×3 (06:02→21:07)
[2017-03-25] MEDS: METOPROLOL TARTRATE 5 MG/5 ML VIAL IV PUSH SCH ×3 (06:02→17:24)
[2017-03-25] MEDS: ARTIFICIAL TEARS OPTH SOLN 15 ML BTL EACH EYE SCH ×3 (06:03→22:00)
[2017-03-25 06:26] LABS: AUTOMATED NEUTROPHIL # 13.8 TH/MM3 (1.8-7.7); BASOPHIL # 0.1 TH/MM3 (0-0.2); BASOPHIL % 0.9 % (0.0-2.0); EOSINOPHIL # 0.2 TH/MM3 (0-0.4); EOSINOPHIL % 1.1 % (0.0-4.0); HEMATOCRIT 34.1 % (35.0-46.0); HEMOGLOBIN 11.9 GM/DL (11.6-15.3); LYMPH % 4.8 % (9.0-44.0); LYMPHOCYTE # 0.8 TH/MM3 (1.0-4.8); MEAN CELL VOLUME 90.1 FL (80.0-100.0); MEAN CORPUSCULAR HEMOGLOBIN 31.5 PG (27.0-34.0); MEAN CORPUSCULAR HGB CONC 34.9 % (32.0-36.0); MEAN PLATELET VOLUME 8.6 FL (7.0-11.0); MONO % 5.3 % (0.0-8.0); MONOCYTE # 0.8 TH/MM3 (0-0.9); NEUT % 87.9 % (16.0-70.0); PLATELET COUNT 263 TH/MM3 (150-450); RED BLOOD COUNT 3.79 MIL/MM3 (4.00-5.30); RED CELL DISTRIBUTION WIDTH 17.6 % (11.6-17.2); WHITE BLOOD COUNT 15.7 TH/MM3 (4.0-11.0)
[2017-03-25 06:57] LABS: ALBUMIN 2.7 GM/DL (3.4-5.0); ALKALINE PHOSPHATASE 151 U/L (45-117); ALT (GPT) 23 U/L (10-53); AST (GOT) 43 U/L (15-37); BICARBONATE 25.1 MEQ/L (21.0-32.0); BLOOD UREA NITROGEN 61 MG/DL (7-18); CALCIUM 9.2 MG/DL (8.5-10.1); CHLORIDE 106 MEQ/L (98-107); CREATININE 4.39 MG/DL (0.50-1.00); GLOMERULAR FILTRATION RATE 10 ML/MIN (>89); GLUCOSE,RANDOM 134 MG/DL (74-106); MAGNESIUM 2.6 MG/DL (1.5-2.5); SODIUM (NA) 142 MEQ/L (136-145); TOTAL BILIRUBIN ADULT 0.9 MG/DL (0.2-1.0); TOTAL PROTEIN 7.3 GM/DL (6.4-8.2)
[2017-03-25 07:38] LABS: BANDS 3 % (0-6); LYMPHOCYTES 5 % (9-44); METAMYELOCYTES 1 % (0-1); MONOCYTES 2 % (0-8); NEUTROPHIL # MANUAL DIFF 14.4 TH/MM3 (1.8-7.7); POLYS (SEG NEUTROPHILS) 88 % (16-70)
[2017-03-25] MEDS: CHLORHEXIDINE 0.12% (ORAL KIT) 15 ML CUP MT SCH ×2 (08:00→21:08)
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
[2017-03-25] MEDS: LIDOCAINE HCL 5% PATCH T-DERMAL SCH (09:00)
[2017-03-25] MEDS: SODIUM CHLORIDE 0.9% FLUSH 10 ML FLUSH IV FLUSH SCH ×2 (09:00→21:00)
[2017-03-25] MEDS: METOCLOPRAMIDE HCL 10 MG/2 ML VIAL IV PUSH SCH ×2 (09:07→17:24)
[2017-03-25] MEDS: CARVEDILOL 12.5 MG TAB PO SCH ×2 (09:08→21:06)
[2017-03-25] MEDS: DOCUSATE SODIUM 50 MG/SENNA 8.6 MG TAB PO SCH ×2 (09:08→21:00)
[2017-03-25] MEDS: levETIRAcetam INJ 500 MG in SODIUM CHLORIDE 0.9% INJ 100 ML IV SCH (09:08)
[2017-03-25] MEDS: POLYETHYLENE GLYCOL 17 GM PKG NG SCH ×2 (09:10→21:00)
[2017-03-25] MEDS: PIPERACIL-TAZO 2.25 GM PREMIX 50 ML IV SCH ×2 (09:10→17:24)
[2017-03-25] MEDS: CALCIUM ACETATE 667 MG CAP PO SCH ×3 (09:11→17:24)
[2017-03-25] MEDS: HEPARIN SODIUM - SQ 10,000 UNITS/ML VIAL SQ SCH ×2 (09:11→21:06)
[2017-03-25] MEDS ORDERED: LISINOPRIL 10 MG TAB PO SCH (09:30)
[2017-03-25] MEDS: fentaNYL DRIP 250 ML IV PRN ×2 (09:36→18:32)
--- NOTE | 2017-03-25 09:41 | HHI.NSPN ---
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 03/26/17 at 09:11; Status DC Amlodipine Besylate (Norvasc) 5 mg DAILY PO Last administered on 03/22/17at 07: 45; Start 03/21/17 at 09:30; Stop 03/22/17 at 19:42; Status DC Miscellaneous Information (RASS Change Order) 1 ea ONCE ONCE XX Last administered on 03/21/17at 10:00; Start 03/21/17 at 10:00; Stop 03/21/17 at 10:24 ; Status DC Nicardipine HCl 50 mg/Sodium Chloride 500 ml @ 50 mls/hr TITRATE PRN IV Blood pressure management Last administered on 03/21/17at 20:05; Start 03/21/17 at 19: 00; Stop 03/21/17 at 23:55; Status DC Fentanyl Citrate (fentaNYL INJ) 50 mcg Q1H PRN IV PUSH PAIN/AGITATION Last administered on 03/26/17at 14:50; Start 03/21/17 at 21:15 Nicardipine HCl 50 mg/Sodium Chloride 250 ml @ 25 mls/hr TITRATE PRN IV Blood pressure management; Start 03/21/17 at 23:45; Stop 03/21/17 at 23:58; Status DC Nicardipine HCl 50 mg/Sodium Chloride 250 ml @ 25 mls/hr TITRATE PRN IV Blood pressure management Last administered on 03/23/17at 07:16; Start 03/21/17 at 23: 45; Stop 03/23/17 at 08:17; Status DC Heparin Sodium (Porcine) (Heparin Inj) 5,000 units Q12HR SQ Last administered on 03/26/17at 09:48; Start 03/22/17 at 21:00 Albuterol/ Ipratropium (Duoneb Neb) 1 ampule Q6HR NEB NEB Last administered on 03/26/17at 03:40; Start 03/22/17 at 16:00; Stop 03/26/17 at 07:07; Status DC Bisacodyl (Dulcolax Supp) 10 mg ONCE ONCE RECTAL Last administered on at 16:18; Start 03/22/17 at 15:00; Stop 03/22/17 at 15:05; Status DC Methylnaltrexone Hollis (Relistor Inj) 12 mg ONCE ONCE SQ Last administered on 03/22/17at 16:18; Start 03/22/17 at 15:00; Stop 03/22/17 at 15:05; Status DC Labetalol HCl (Trandate Inj) 10 mg Q4HR PRN IV PUSH SBP >160 Last administered on 03/24/17at 15:14; Start 03/22/17 at 19:45; Stop 03/24/17 at 18:30; Status DC Clonidine (Catapres-Tts 0.2 Mg Patch.7d) 1 patch Q7D T-DERMAL Last administered on 03/22/17at 22:20; Start 03/22/17 at 20:00; Stop 03/25/17 at 09:27 ; Status DC Miscellaneous Information 1 Q7D T-DERMAL ; Start 03/29/17 at 20:00; Stop at 20:00; Status DC Clonidine (Catapres) 0.1 mg Q6H PRN PO for BP > 160 systolic Last administered on 03/25/17at 21:06; Start 03/23/17 at 03:15; Stop 03/26/17 at 07:09 ; Status DC Clevidipine 50 ml @ 2 mls/hr TITRATE PRN IV Blood Pressure Management Last administered on 03/25/17at 07:13; Start 03/23/17 at 09:00; Stop 03/25/17 at 09:27 ; Status DC Propranolol HCl (Inderal) 20 mg Q8HR PO ; Start 03/23/17 at 14:00; Stop at 14:00; Status DC Sodium Chloride 500 ml @ 30 mls/hr CONTINUOUS IV Last administered on at 12:52; Start 03/23/17 at 09:00; Stop 03/25/17 at 16:57; Status DC Metoclopramide HCl (Reglan Inj) 5 mg Q8H IV PUSH Last administered on at 09:49; Start 03/23/17 at 09:00 Metoprolol Tartrate (Lopressor Inj) 5 mg Q6H IV PUSH Last administered on at 10:00; Start 03/23/17 at 10:00; Stop 03/24/17 at 11:16; Status DC Diatrizoate Meglum/ Diatrizoate Sod ( Gastroview Liq) 18 ml ONCE ONCE PO Last administered on 03/23/17at 10:59; Start 03/23/17 at 09:30; Stop 03/23/17 at 09:31; Status DC Hydromorphone HCl (Dilaudid Pf Inj) 0.75 mg Q4HR IV PUSH ; Start 03/23/17 at 12: 00; Status UNV Lorazepam (Ativan Inj) 1 mg Q4HR IV PUSH ; Start 03/23/17 at 12:00; Status UNV Carvedilol (Coreg) 12.5 mg Q12HR PO ; Start 03/23/17 at 21:00; Stop 03/23/17 at 21:00; Status DC Carvedilol (Coreg) 12.5 mg Q12HR PO Last administered on 03/24/17at 09:00; Start 03/23/17 at 18:00; Stop 03/24/17 at 11:43; Status DC Iohexol (Omnipaque 350 Inj) 71 ml STK-MED ONCE IVCONTRAST Last administered on 03/23/17at 18:20; Start 03/23/17 at 18:20; Stop 03/23/17 at 18:21; Status DC Metoprolol Tartrate (Lopressor Inj) 5 mg Q6H IV PUSH Last administered on at 12:46; Start 03/24/17 at 12:00 Oxycodone HCl (Roxicodone) 5 mg Q4HR PO Last administered on 03/26/17at 12:46; Start 03/24/17 at 12:00 Carvedilol (Coreg) 25 mg Q12HR PO Last administered on 03/26/17at 09:54; Start 03/24/17 at 21:00 Methylnaltrexone Hollis (Relistor Inj) 12 mg ONCE ONCE SQ Last administered on 03/24/17at 13:54; Start 03/24/17 at 11:45; Stop 03/24/17 at 12:36; Status DC Hydralazine HCl (Apresoline Inj) 20 mg Q4H PRN IV PUSH SBP>160, DBP>90 Last administered on 03/26/17at 14:51; Start 03/25/17 at 03:30 Labetalol HCl (Trandate Inj) 10 mg Q4H PRN IV PUSH SBP>160, DBP>90 Last administered on 03/25/17at 04:05; Start 03/25/17 at 03:30; Stop 03/25/17 at 15:35 ; Status DC Lisinopril (Prinivil) 10 mg Q12HR PO Last administered on 03/25/17at 12:37; Start 03/25/17 at 09:30; Stop 03/25/17 at 15:36; Status DC Clonidine (Catapres-Tts 0.3 Mg Patch.7d) 1 patch Q7D T-DERMAL Last administered on 03/25/17at 13:39; Start 03/25/17 at 12:00 Famotidine (Pepcid) 10 mg Q12H NG Last administered on 03/26/17at 04:14; Start 03/25/17 at 16:00 Levetriacetam (Keppra) 500 mg Q12HR PO Last administered on 03/25/17at 21:06; Start 03/25/17 at 21:00 Miscellaneous Information 1 Q7D T-DERMAL ; Start 04/01/17 at 12:00 Levofloxacin/ Dextrose 50 ml @ 50 mls/hr Q24H IV Last administered on at 15:49; Start 03/25/17 at 15:00; Stop 03/26/17 at 10:30; Status DC Labetalol HCl (Trandate Inj) 10 mg Q1HR PRN IV PUSH SBP>160, DBP>90; Start at 15:45 Lisinopril (Prinivil) 20 mg Q12HR PO Last administered on 03/25/17at 21:07; Start 03/25/17 at 21:00; Stop 03/26/17 at 07:09; Status DC Nicardipine HCl 25 mg/Sodium Chloride 250 ml @ 50 mls/hr TITRATE PRN IV Blood Pressure Management Last administered on 03/26/17at 14:50; Start 03/25/17 at 17: 15 Albuterol/ Ipratropium (Duoneb Neb) 1 ampule Q6HR NEB NEB Last administered on 03/26/17at 14:32; Start 03/26/17 at 10:00 Clonidine (Catapres) 0.1 mg Q4HR PRN PO for BP > 160 systolic ; Start 03/26/17 at 07:15 Lisinopril (Prinivil) 40 mg Q12HR PO Last administered on 03/26/17at 09:47; Start 03/26/17 at 09:00 Levofloxacin/ Dextrose 50 ml @ 50 mls/hr Q24H IV ; Start 03/26/17 at 10:30; Stop 03/26/17 at 10:31; Status DC Levofloxacin/ Dextrose 50 ml @ 50 mls/hr Q24H IV ; Start 03/27/17 at 09:00 (Saulo King MD) Medical Decision Making MDM Remarks 56-year-old female traumatic brain injury, diffuse subarachnoid hemorrhage, left subdural hematoma, status post placement of intracranial pressure monitor to 03/15/17, dc'ed 03/20/17 Follow-up CT brain yesterday afternoon shows increased size of right extra- axial fluid collection with mild mass-effect, stable serial f/u CT Heads 03/16 and 03/17 History of remote aneurysm clipping Renal failure on hemodialysis Last Impressions Chest X-Ray 03/23/17 0600 Signed Impressions: Service Date/Time: Thursday, March 23, 2017 02:52 - CONCLUSION: Improved aeration on the right. Art Cottrell MD Abdomen X-Ray 03/22/17 0600 Signed Impressions: Service Date/Time: Wednesday, March 22, 2017 04:40 - CONCLUSION: 1. Gaseous distention, predominantly colonic. NG tip in stomach. Rafael Phoenix MD Head CT 03/17/17 0000 Signed Impressions: Service Date/Time: Friday, March 17, 2017 14:00 - CONCLUSION: 1. Stable postoperative changes. 2. Unchanged subarachnoid hemorrhage with no ventriculomegaly. Alfredo Rodriguez MD Chest CT 03/17/17 0000 Signed Impressions: Service Date/Time: Friday, March 17, 2017 14:10 - CONCLUSION: 1. Worsening extensive bibasilar alveolar consolidations consistent with probable worsening atelectasis and/or pneumonia. Clinical correlation is recommended. 2. Mild central pulmonary vascular congestion. 3. Small bilateral pleural effusions. 4. Cardiomegaly and coronary artery calcifications. 5. Anasarca. Jordan Jung MD Abdomen/Pelvis CT 03/17/17 Signed Impressions: Service Date/Time: Friday, March 17, 2017 14:07 - CONCLUSION: 1. Worsening extensive alveolar consolidations within the posterior aspects of the lung bases consistent with atelectasis and/or pneumonia. Clinical correlation is recommended. 2. Diffuse anasarca. 3. Ascites. 4. Tiny bilateral pleural effusions. 5. Cardiomegaly. 6. Tiny fracture along the left side of the superior endplate of L5. Jordan Jung MD Neck CTA 03/16/17 1103 Signed Impressions: Service Date/Time: Thursday, March 16, 2017 11:01 - CONCLUSION: Normal carotid CTA Alex Terrell MD Head CTA 03/16/17 0000 Signed Impressions: Service Date/Time: Thursday, March 16, 2017 11:01 - CONCLUSION: Subarachnoid hemorrhage. Aneurysm is not identified. Han Santillan MD FACR Femur X-Ray 03/15/17 0600 Signed Impressions: Service Date/Time: Wednesday, March 15, 2017 06:39 - CONCLUSION: Unremarkable examination of the left femur. Art Cottrell MD Tibia/Fibula X-Ray 03/15/17 0000 Signed Impressions: Service Date/Time: Wednesday, March 15, 2017 03:58 - CONCLUSION: Unremarkable examination of the right tibia. Art Cottrell MD Cervical Spine CT 03/15/17 0000 Signed Impressions: Service Date/Time: Wednesday, March 15, 2017 14:21 - CONCLUSION: 1. No fracture or subluxation. 2. Extensive soft tissue injury greater along the left shoulder not completely imaged. Thanh Eid MD (Libia Jeffery) Plan Plan Remarks continue neuro check and follow up exam cont critical care management (Libia Jeffery) Attending Statement No significant improvement. WIll repeat CT in the morning She will need a tracheostomy Continue supportive care She will need placement of a gastrostomy tube Discussed with the trauma surgeon The exam, history, and the medical decision-making described in the above note were completed with the assistance of the mid-level provider. I reviewed and agree with the findings presented. I attest that I had a [id number] encounter with the patient on the same day, and personally performed and documented my assessment and findings in the medical record. (Saulo King MD) Libia Jeffery Mar 25, 2017 09:41 Saulo King MD Mar 26, 2017 15:01
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
[2017-03-25] MEDS: cloNIDine HCL 0.3 MG/24 HR PATCH T-DERMAL SCH (13:39)
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
[2017-03-25] MEDS ORDERED: LEVOFLOXACIN 250 MG PREMIX INJ 50 ML IV SCH (15:00)
[2017-03-25] MEDS: FAMOTIDINE 20 MG TAB NG SCH (15:48)
--- NOTE | 2017-03-25 16:37 | MG ---
cc: GRACIA BUTLER Lab No: Date: 03/25/2017 Age: Sex: F Race: TEST NUMBER [id number] TECHNIQUE This is a 17 channel EEG. DESCRIPTION The background rhythm reveals generalized slowing in the delta frequency at roughly 4-5 Hz. Amplitude is about 20-30 microvolts. No lateralizing features are identified and no epileptic features are identified. Photic stimulation was done in a stepwise fashion with no significant driving response. INTERPRETATION Abnormal study consistent with a significant encephalopathy. MD GÓMEZ Love/ANDREEA /3:09 PM /4:29 PM
[2017-03-25] MEDS: niCARdipine 25 MG/NS 250 ML Vial2Bag or IV room IV PRN ×4 (17:25→21:10)
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
[2017-03-25] MEDS: REMOVE OLD LIDOCAINE PATCH T-DERMAL SCH (21:00)
[2017-03-25] MEDS ORDERED: LISINOPRIL 20 MG TAB PO SCH (21:00)
[2017-03-25] MEDS: HALOPERIDOL LACTATE 5 MG/ML AMP IV PRN (21:05)
[2017-03-25] MEDS: cloNIDine HCL 0.1 MG TAB PO PRN (21:06)
[2017-03-25] MEDS: levETIRAcetam 500 MG TAB PO SCH (21:06)
[2017-03-26] VITALS (17 sets, daily range): BP systolic 114–162; BP diastolic 70–85; PULSE 83–118; RESP 14–24; TEMP 98.3–100; O2SAT 93–100
[2017-03-26] MEDS: METOPROLOL TARTRATE 5 MG/5 ML VIAL IV PUSH SCH ×5 (00:30→23:42)
[2017-03-26] MEDS: PIPERACIL-TAZO 2.25 GM PREMIX 50 ML IV SCH ×4 (00:31→23:42)
[2017-03-26] MEDS: METOCLOPRAMIDE HCL 10 MG/2 ML VIAL IV PUSH SCH ×4 (00:31→23:42)
[2017-03-26] MEDS: RESP: ALBUTEROL 2.5 MG/IPRATROPIUM 0.5 MG NEB (SCH) NEB ×4 (03:40→21:44)
[2017-03-26] MEDS: niCARdipine 25 MG/NS 250 ML Vial2Bag or IV room IV PRN ×16 (03:58→23:50)
[2017-03-26] MEDS: fentaNYL DRIP 250 ML IV PRN ×3 (04:14→20:10)
[2017-03-26] MEDS: FAMOTIDINE 20 MG TAB NG SCH ×2 (04:14→17:51)
[2017-03-26] MEDS: LACTULOSE SYRUP 20 GM/30 ML CUP OG-TUBE SCH ×5 (05:07→23:43)
[2017-03-26] MEDS: METHOCARBAMOL 500 MG TAB PO SCH (05:07)
[2017-03-26] MEDS: INSULIN NovoLIN REGULAR SUPPLEMENTAL SCALE SQ SCH ×4 (05:08→17:52)
[2017-03-26] MEDS: ARTIFICIAL TEARS OPTH SOLN 15 ML BTL EACH EYE SCH ×3 (05:08→20:10)
[2017-03-26 06:19] LABS: BASOPHIL # 0.1 TH/MM3 (0-0.2); BASOPHIL % 0.8 % (0.0-2.0); EOSINOPHIL # 0.1 TH/MM3 (0-0.4); EOSINOPHIL % 0.8 % (0.0-4.0); HEMATOCRIT 34.3 % (35.0-46.0); HEMOGLOBIN 11.7 GM/DL (11.6-15.3); LYMPH % 6.6 % (9.0-44.0); LYMPHOCYTE # 1.1 TH/MM3 (1.0-4.8); MEAN CELL VOLUME 90.4 FL (80.0-100.0); MEAN CORPUSCULAR HEMOGLOBIN 30.9 PG (27.0-34.0); MEAN CORPUSCULAR HGB CONC 34.2 % (32.0-36.0); MEAN PLATELET VOLUME 8.7 FL (7.0-11.0); MONO % 4.8 % (0.0-8.0); MONOCYTE # 0.8 TH/MM3 (0-0.9); PLATELET COUNT 236 TH/MM3 (150-450); RED BLOOD COUNT 3.79 MIL/MM3 (4.00-5.30); RED CELL DISTRIBUTION WIDTH 17.5 % (11.6-17.2); WHITE BLOOD COUNT 16.1 TH/MM3 (4.0-11.0)
[2017-03-26 06:44] LABS: BICARBONATE 22.9 MEQ/L (21.0-32.0); CALCIUM 9.3 MG/DL (8.5-10.1); CREATININE 4.94 MG/DL (0.50-1.00)
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
[2017-03-26] MEDS: CHLORHEXIDINE 0.12% (ORAL KIT) 15 ML CUP MT SCH ×2 (08:00→20:03)
[2017-03-26] MEDS: levETIRAcetam 500 MG TAB PO SCH ×2 (09:00→20:01)
[2017-03-26] MEDS: POLYETHYLENE GLYCOL 17 GM PKG NG SCH ×2 (09:00→20:03)
[2017-03-26] MEDS: DOCUSATE SODIUM 50 MG/SENNA 8.6 MG TAB PO SCH ×2 (09:00→20:03)
[2017-03-26] MEDS: SODIUM CHLORIDE 0.9% FLUSH 10 ML FLUSH IV FLUSH SCH ×2 (09:47→20:02)
[2017-03-26] MEDS: LISINOPRIL 20 MG TAB PO SCH ×2 (09:47→20:01)
[2017-03-26] MEDS: CALCIUM ACETATE 667 MG CAP PO SCH ×3 (09:47→17:51)
[2017-03-26] MEDS: LIDOCAINE HCL 5% PATCH T-DERMAL SCH (09:48)
[2017-03-26] MEDS: HEPARIN SODIUM - SQ 10,000 UNITS/ML VIAL SQ SCH ×2 (09:48→20:03)
[2017-03-26] MEDS: CARVEDILOL 12.5 MG TAB PO SCH ×2 (09:54→20:02)
[2017-03-26] MEDS ORDERED: LEVOFLOXACIN 250 MG PREMIX INJ 50 ML IV SCH (10:30)
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
[2017-03-26] MEDS: EPOETIN ALFA 10,000 UNITS/ML VIAL IV PUSH PRN (11:37)
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
--- NOTE | 2017-03-26 14:29 | HHI.NSPN ---
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 (RASS Change Order) 1 ea ONCE ONCE XX Last administered on 03/21/17at 10:00; Start 03/21/17 at 10:00; Stop 03/21/17 at 10:24 ; Status DC Nicardipine HCl 50 mg/Sodium Chloride 500 ml @ 50 mls/hr TITRATE PRN IV Blood pressure management Last administered on 03/21/17at 20:05; Start 03/21/17 at 19: 00; Stop 03/21/17 at 23:55; Status DC Fentanyl Citrate (fentaNYL INJ) 50 mcg Q1H PRN IV PUSH PAIN/AGITATION Last administered on 03/30/17at 05:08; Start 03/21/17 at 21:15; Stop 03/30/17 at 09:05 ; Status DC Nicardipine HCl 50 mg/Sodium Chloride 250 ml @ 25 mls/hr TITRATE PRN IV Blood pressure management; Start 03/21/17 at 23:45; Stop 03/21/17 at 23:58; Status DC Nicardipine HCl 50 mg/Sodium Chloride 250 ml @ 25 mls/hr TITRATE PRN IV Blood pressure management Last administered on 03/23/17at 07:16; Start 03/21/17 at 23: 45; Stop 03/23/17 at 08:17; Status DC Heparin Sodium (Porcine) (Heparin Inj) 5,000 units Q12HR SQ Last administered on 03/26/17at 20:03; Start 03/22/17 at 21:00; Stop 03/29/17 at 10:36; Status DC Albuterol/ Ipratropium (Duoneb Neb) 1 ampule Q6HR NEB NEB Last administered on 03/26/17at 03:40; Start 03/22/17 at 16:00; Stop 03/26/17 at 07:07; Status DC Bisacodyl (Dulcolax Supp) 10 mg ONCE ONCE RECTAL Last administered on at 16:18; Start 03/22/17 at 15:00; Stop 03/22/17 at 15:05; Status DC Methylnaltrexone [place] (Relistor Inj) 12 mg ONCE ONCE SQ Last administered on 03/22/17at 16:18; Start 03/22/17 at 15:00; Stop 03/22/17 at 15:05; Status DC Labetalol HCl (Trandate Inj) 10 mg Q4HR PRN IV PUSH SBP >160 Last administered on 03/24/17at 15:14; Start 03/22/17 at 19:45; Stop 03/24/17 at 18:30; Status DC Clonidine (Catapres-Tts 0.2 Mg Patch.7d) 1 patch Q7D T-DERMAL Last administered on 03/22/17at 22:20; Start 03/22/17 at 20:00; Stop 03/25/17 at 09:27 ; Status DC Miscellaneous Information 1 Q7D T-DERMAL ; Start 03/29/17 at 20:00; Stop at 20:00; Status DC Clonidine (Catapres) 0.1 mg Q6H PRN PO for BP > 160 systolic Last administered on 03/25/17at 21:06; Start 03/23/17 at 03:15; Stop 03/26/17 at 07:09 ; Status DC Clevidipine 50 ml @ 2 mls/hr TITRATE PRN IV Blood Pressure Management Last administered on 03/25/17at 07:13; Start 03/23/17 at 09:00; Stop 03/25/17 at 09:27 ; Status DC Propranolol HCl (Inderal) 20 mg Q8HR PO ; Start 03/23/17 at 14:00; Stop at 14:00; Status DC Sodium Chloride 500 ml @ 30 mls/hr CONTINUOUS IV Last administered on at 12:52; Start 03/23/17 at 09:00; Stop 03/25/17 at 16:57; Status DC Metoclopramide HCl (Reglan Inj) 5 mg Q8H IV PUSH Last administered on at 23:48; Start 03/23/17 at 09:00 Metoprolol Tartrate (Lopressor Inj) 5 mg Q6H IV PUSH Last administered on at 10:00; Start 03/23/17 at 10:00; Stop 03/24/17 at 11:16; Status DC Diatrizoate Meglum/ Diatrizoate Sod (Md White Liq) 18 ml ONCE ONCE PO Last administered on 03/23/17at 10:59; Start 03/23/17 at 09:30; Stop 03/23/17 at 09:31; Status DC Hydromorphone HCl (Dilaudid Pf Inj) 0.75 mg Q4HR IV PUSH ; Start 03/23/17 at 12: 00; Status UNV Lorazepam (Ativan Inj) 1 mg Q4HR IV PUSH ; Start 03/23/17 at 12:00; Status UNV Carvedilol (Coreg) 12.5 mg Q12HR PO ; Start 03/23/17 at 21:00; Stop 03/23/17 at 21:00; Status DC Carvedilol (Coreg) 12.5 mg Q12HR PO Last administered on 03/24/17at 09:00; Start 03/23/17 at 18:00; Stop 03/24/17 at 11:43; Status DC Iohexol (Omnipaque 350 Inj) 71 ml STK-MED ONCE IVCONTRAST Last administered on 03/23/17at 18:20; Start 03/23/17 at 18:20; Stop 03/23/17 at 18:21; Status DC Metoprolol Tartrate (Lopressor Inj) 5 mg Q6H IV PUSH Last administered on at 05:07; Start 03/24/17 at 12:00 Oxycodone HCl (Roxicodone) 5 mg Q4HR PO Last administered on 03/30/17at 07:53; Start 03/24/17 at 12:00 Carvedilol (Coreg) 25 mg Q12HR PO Last administered on 03/30/17at 08:01; Start 03/24/17 at 21:00 Methylnaltrexone [place] (Relistor Inj) 12 mg ONCE ONCE SQ Last administered on 03/24/17at 13:54; Start 03/24/17 at 11:45; Stop 03/24/17 at 12:36; Status DC Hydralazine HCl (Apresoline Inj) 20 mg Q4H PRN IV PUSH SBP>160, DBP>90 Last administered on 03/30/17at 07:58; Start 03/25/17 at 03:30 Labetalol HCl (Trandate Inj) 10 mg Q4H PRN IV PUSH SBP>160, DBP>90 Last administered on 03/25/17at 04:05; Start 03/25/17 at 03:30; Stop 03/25/17 at 15:35 ; Status DC Lisinopril (Prinivil) 10 mg Q12HR PO Last administered on 03/25/17at 12:37; Start 03/25/17 at 09:30; Stop 03/25/17 at 15:36; Status DC Clonidine (Catapres-Tts 0.3 Mg Patch.7d) 1 patch Q7D T-DERMAL Last administered on 03/25/17at 13:39; Start 03/25/17 at 12:00 Famotidine (Pepcid) 10 mg Q12H NG Last administered on 03/29/17at 05:18; Start 03/25/17 at 16:00; Stop 03/29/17 at 13:54; Status DC Levetriacetam (Keppra) 500 mg Q12HR PO Last administered on 03/30/17at 08:03; Start 03/25/17 at 21:00 Miscellaneous Information 1 Q7D T-DERMAL ; Start 04/01/17 at 12:00 Levofloxacin/ Dextrose 50 ml @ 50 mls/hr Q24H IV Last administered on at 15:49; Start 03/25/17 at 15:00; Stop 03/26/17 at 10:30; Status DC Labetalol HCl (Trandate Inj) 10 mg Q1HR PRN IV PUSH SBP>160, DBP>90 Last administered on 03/30/17at 03:07; Start 03/25/17 at 15:45 Lisinopril (Prinivil) 20 mg Q12HR PO Last administered on 03/25/17at 21:07; Start 03/25/17 at 21:00; Stop 03/26/17 at 07:09; Status DC Nicardipine HCl 25 mg/Sodium Chloride 250 ml @ 50 mls/hr TITRATE PRN IV Blood Pressure Management Last administered on 03/27/17at 23:34; Start 03/25/17 at 17: 15 Albuterol/ Ipratropium (Duoneb Neb) 1 ampule Q6HR NEB NEB Last administered on 03/29/17at 08:17; Start 03/26/17 at 10:00; Stop 03/29/17 at 10:35; Status DC Clonidine (Catapres) 0.1 mg Q4HR PRN PO for BP > 160 systolic Last administered on 03/30/17at 02:26; Start 03/26/17 at 07:15 Lisinopril (Prinivil) 40 mg Q12HR PO Last administered on 03/30/17at 08:03; Start 03/26/17 at 09:00 Levofloxacin/ Dextrose 50 ml @ 50 mls/hr Q24H IV ; Start 03/26/17 at 10:30; Stop 03/26/17 at 10:31; Status DC Levofloxacin/ Dextrose 50 ml @ 50 mls/hr Q24H IV Last administered on at 08:09; Start 03/27/17 at 09:00; Stop 03/28/17 at 07:31; Status DC Vecuronium [place] (Norcuron 10 Mg Inj) 10 mg METHODS SPECIALIST IV PUSH ; Start 03/27/17 at 11:00; Stop 03/29/17 at 10:59; Status DC Fentanyl Citrate 250 ml @ 5 mls/hr TITRATE PRN IV SEDATION Last administered on 03/28/17at 10:00; Start 03/26/17 at 15:30 Quetiapine Fumarate (SEROquel) 50 mg Q8HR PO Last administered on 03/29/17at 05: 18; Start 03/27/17 at 10:00; Stop 03/29/17 at 09:54; Status DC Haloperidol Lactate (Haldol Inj) 2 mg Q4H PRN IV PUSH AGITATION Last administered on 03/30/17at 09:21; Start 03/27/17 at 09:15 Midazolam HCl (Versed Inj) 5 mg STK-MED ONCE .ROUTE ; Start 03/27/17 at 10:43; Stop 03/27/17 at 10:44; Status DC Rocuronium [place] (Zemuron Inj) 100 mg STK-MED ONCE .ROUTE ; Start 03/27/17 at 10:43; Stop 03/27/17 at 10:44; Status DC Midazolam HCl (Versed Inj) 5 mg NOW ONCE IV PUSH Last administered on at 11:51; Start 03/27/17 at 12:30; Stop 03/27/17 at 12:31; Status DC Rocuronium [place] (Zemuron Inj) 100 mg NOW ONCE IV PUSH Last administered on 03/27/17at 11:52; Start 03/27/17 at 12:30; Stop 03/27/17 at 12:31; Status DC Amlodipine Besylate (Norvasc) 5 mg ONCE ONCE PEG Last administered on at 15:36; Start 03/27/17 at 14:45; Stop 03/27/17 at 14:46; Status DC Desmopressin Acetate (Ddavp Inj) 1 mcg ONCE ONCE IV PUSH Last administered on 03/28/17at 07:04; Start 03/28/17 at 06:30; Stop 03/28/17 at 06:31; Status DC Levofloxacin/ Dextrose 50 ml @ 50 mls/hr Q48H IV Last administered on at 08:55; Start 03/29/17 at 09:00 Lidocaine/ Epinephrine (Xylocaine-Epi 1%-1:100,000 Inj) 30 ml STK-MED ONCE .ROUTE Last administered on 03/28/17at 13:39; Start 03/28/17 at 13:39; Stop at 13:40; Status DC Pantoprazole Sodium (Protonix Inj) 40 mg DAILY IV PUSH Last administered on at 08:02; Start 03/28/17 at 13:45 Quetiapine Fumarate (SEROquel) 100 mg Q8HR PO Last administered on 03/30/17at 05 :08; Start 03/29/17 at 14:00 Albuterol/ Ipratropium (Duoneb Neb) 1 ampule Q6HR NEB NEB Last administered on 03/30/17at 07:55; Start 03/29/17 at 16:00 Heparin Sodium (Porcine) (Heparin Inj) 5,000 units Q12HR SQ ; Start 03/30/17 at 21:00 Nifedipine (Procardia) 10 mg Q8HR PO Last administered on 03/29/17at 21:00; Start 03/29/17 at 16:15; Stop 03/30/17 at 03:59; Status DC Nifedipine (Procardia) 20 mg Q8HR PO Last administered on 03/30/17at 05:09; Start 03/30/17 at 06:00 Potassium Chloride (KCl Powder) 10 meq ONCE ONCE PO Last administered on at 08:06; Start 03/30/17 at 07:45; Stop 03/30/17 at 07:47; Status DC Valproic Acid (Depakene Liq) 250 mg BID PO Last administered on 03/30/17at 09:21 ; Start 03/30/17 at 10:00 (Saulo King MD) Medical Decision Making MDM Remarks 56-year-old female traumatic brain injury, diffuse subarachnoid hemorrhage, left subdural hematoma, status post placement of intracranial pressure monitor to 03/15/17, dc'ed 03/20/17 Follow-up CT brain yesterday afternoon shows increased size of right extra- axial fluid collection with mild mass-effect, stable serial f/u CT Heads 03/16 and 03/17 right subdural hygroma with 3.9 mm midline shift on CT 03/25 History of remote aneurysm clipping Renal failure on hemodialysis CT Brain 03/25/17 FINDINGS: There are bilateral hypodense subdural collections, and diffuse subarachnoid hemorrhage again seen. The right subdural collection is increased in transverse width with mild underlying mass effect on the right cerebral hemisphere. Maximal transverse width of approximately 2.6 cm is noted on axial image 24 the right frontal region. There is midline shift from right to left of 3.9 mm. Right temporal scalp soft tissue swelling. There is slightly decreased subarachnoid blood on the current study. Bilateral mastoid air cell and middle ear opacification. Left sphenoid and right sphenoid sinus air fluid levels. Left middle cranial fossa aneurysm clipping. Left temporal craniotomy. (Libia Jeffery) MDM Remarks Current Medications Sodium Chloride (NS Flush) 2 ml UNSCH PRN IV FLUSH FLUSH AFTER USING IV ACCESS ; Start 03/14/17 at 23:15 Sodium Chloride (NS Flush) 2 ml BID IV FLUSH Last administered on 03/30/17at 08: 02; Start 03/15/17 at 09:00 Ondansetron HCl (Zofran Inj) 4 mg Q6H PRN IV PUSH NAUSEA OR VOMITING Last administered on 03/15/17at 00:30; Start 03/14/17 at 23:15 Pantoprazole Sodium (Protonix) 40 mg Q24H PO ; Start 03/14/17 at 23:15; Stop 03/15 at 04:18; Status DC Miscellaneous Information (Post-op Orders (for Pharmacy)) STAT ONCE XX ; Start 03/14/17 at 23:15; Stop 03/14/17 at 23:23; Status DC Acetaminophen/ Hydrocodone Bitart ([place] 5-325 Mg) 1 tab Q4H PRN PO PAIN SCALE 3 TO 5; Start 03/14/17 at 23:15; Stop 03/24/17 at 09:43; Status DC Morphine Sulfate (Morphine Inj) 4 mg Q2H PRN IV PUSH breakthrough pain-or no jaiden po Last administered on 03/15/17at 10:18; Start 03/14/17 at 23:15; Stop at 12:51; Status DC Naloxone HCl (Narcan Inj) 0.4 mg UNSCH PRN IV PUSH SEE LABEL COMMENTS; Start at 23:15 Levetriacetam 500 mg/Sodium Chloride 105 ml @ 420 mls/hr Q12HR IV Last administered on 03/25/17at 09:08; Start 03/14/17 at 23:15; Stop 03/25/17 at 09:27 ; Status DC Haloperidol Lactate (Haldol Inj) 2 mg Q6H PRN IM aggitation; Start 03/14/17 at 23:15; Stop 03/15/17 at 07:28; Status DC Acetaminophen 100 ml @ 400 mls/hr Q6H PRN IV temp 101 Last administered on at 03:48; Start 03/15/17 at 00:00; Stop 03/30/17 at 03:50; Status DC Dexmedetomidine HCl 200 mcg/ Sodium Chloride 52 ml @ 3.02 mls/hr TITRATE PRN IV SEDATION Last administered on 03/15/17at 07:55; Start 03/15/17 at 01:15; Stop at 16:31; Status DC Lorazepam (Ativan Inj) 0.5 mg ONCE ONCE IV PUSH Last administered on 03/15/17 01:58; Start 03/15/17 at 02:00; Stop 03/15/17 at 02:01; Status DC Lorazepam (Ativan Inj) 0.5 mg ONCE ONCE IV PUSH Last administered on 03/15/17 03:10; Start 03/15/17 at 02:30; Stop 03/15/17 at 02:31; Status DC Sodium Chloride 250 ml @ 15 mls/hr ONCE ONCE IV Last administered on at 03:00; Start 03/15/17 at 03:00; Stop 03/15/17 at 19:39; Status DC Famotidine (Pepcid Inj) 10 mg Q12H IV PUSH Last administered on 03/25/17at 03:47 ; Start 03/15/17 at 04:30; Stop 03/25/17 at 09:27; Status DC Lorazepam (Ativan Inj) 0.5 mg ONCE PRN IV PUSH AGITATION - FOR CT SCAN Last administered on 03/15/17 05:37; Start 03/15/17 at 04:30; Stop 03/16/17 at 04:29; Status DC Haloperidol Lactate (Haldol Inj) 2 mg Q6H PRN IV aggitation Last administered on 03/29/17 20:59; Start 03/15/17 at 11:15; Stop 03/30/17 at 03:50; Status DC Acetaminophen/ Hydrocodone Bitart ([place] 7.5-325 Mg) 1 tab Q4H PRN PO pain 6- 10 Last administered on 03/23/17 23:05; Start 03/15/17 at 07:30; Stop 03/24/17 at 09:43; Status DC Methocarbamol (Robaxin) 500 mg Q8HR PO Last administered on 03/26/17 05:07; Start 03/15/17 at 07:30; Stop 03/26/17 at 09:11; Status DC Lidocaine HCl (Lidoderm 5% Patch.12 Hr) 1 patch DAILY T-DERMAL Last administered on 03/30/17at 08:01; Start 03/15/17 at 09:00 Albuterol/ Ipratropium (Duoneb Neb) 1 ampule Q2HR NEB PRN NEB wheezing Last administered on 2/7/18at 11:59; Start 03/15/17 at 07:30; Stop 03/20/17 at 06:27; Status DC Senna/Docusate Sodium (Mel-Colace) 1 tab BID PO Last administered on 07:43; Start 03/15/17 at 09:00 Magnesium Hydroxide (Milk Of Magnesia Liq) 30 ml BID PO Last administered on 20:19; Start 03/15/17 at 09:00; Stop 03/19/17 at 07:19; Status DC Miscellaneous Information 1 Q24H T-DERMAL Last administered on 03/29/17 19:38 ; Start 03/15/17 at 21:00 Clonidine (Catapres-Tts 0.1mg Patch.7d) 1 patch Q7D T-DERMAL Last administered on 03/22/17 11:00; Start 03/15/17 at 11:00; Stop 03/22/17 at 19:42; Status DC Miscellaneous Information 1 Q7D T-DERMAL Last administered on 03/22/17at 10:00; Start 03/22/17 at 10:00; Stop 03/22/17 at 19:51; Status DC Labetalol HCl (Trandate Inj) 10 mg Q6H PRN IV PUSH SBP >160 Last administered on 03/22/17 01:33; Start 03/15/17 at 10:00; Stop 03/22/17 at 19:42; Status DC Midazolam HCl (Versed Inj) 5 mg STK-MED ONCE .ROUTE Last administered on 11:40; Start 03/15/17 at 11:33; Stop 03/15/17 at 11:34; Status DC Propofol 50 ml @ As Directed STK-MED ONCE .ROUTE Last administered on 03/15/17 11:55; Start 03/15/17 at 11:53; Stop 03/15/17 at 11:54; Status DC Chlorhexidine Gluconate (Peridex 0.12% Liq) 15 ml BID@08,20 MT Last administered on 03/30/17 07:44; Start 03/15/17 at 20:00 Propofol 100 ml @ 1.743 mls/ hr TITRATE PRN IV SEDATION Last administered on 2 /6/18at 23:25; Start 03/15/17 at 12:00; Stop 03/18/17 at 02:54; Status DC Fentanyl Citrate (fentaNYL INJ) 100 mcg ONCE ONCE IV PUSH Last administered on 03/15/17at 12:30; Start 03/15/17 at 12:00; Stop 03/15/17 at 12:30; Status DC Fentanyl Citrate 250 ml @ 5 mls/hr TITRATE PRN IV SEDATION Last administered on 03/17/17at 18:08; Start 03/15/17 at 12:00; Stop 03/18/17 at 02:52; Status DC Sodium Chloride 500 ml @ 30 mls/hr ONCE IV Last administered on 03/15/17at 12:45 ; Start 03/15/17 at 12:45; Stop 03/16/17 at 05:24; Status DC Morphine Sulfate (Morphine Inj) 8 mg STK-MED ONCE .ROUTE Last administered on at 13:35; Start 03/15/17 at 13:33; Stop 03/15/17 at 13:34; Status DC Sodium Chloride 2,500 ml @ 0 mls/hr Q0M PRN OTHER For Prime & Rinse Back; Start 03/15/17 at 14:23 Sodium Chloride 1,000 ml @ 200 mls/hr Q5H PRN IV WITH DIALYSIS Last administered on 03/21/17at 11:13; Start 03/15/17 at 14:23 Sodium Chloride 1,000 ml @ 0 mls/hr Q0M PRN OTHER WITH DIALYSIS; Start 03/15/17 at 14:23 Mannitol (Mannitol Inj) 12.5 gm UNSCH PRN IV WITH DIALYSIS; Start 03/15/17 at 14 :30 Albumin Human 100 ml @ 60 mls/hr UNSCH PRN IV WITH DIALYSIS Last administered on 03/24/17at 08:27; Start 03/15/17 at 14:30 Sodium Chloride (NS Flush) 5 ml UNSCH PRN IV FLUSH WITH DIALYSIS; Start at 14:30 Ondansetron HCl (Zofran Inj) 4 mg UNSCH PRN IV PUSH WITH DIALYSIS; Start at 14:30 Acetaminophen (Tylenol) 650 mg UNSCH PRN PO for headach, pain, temp > 101F; Start 03/15/17 at 14:30 Diphenhydramine HCl (Benadryl) 25 mg UNSCH PRN PO for hives/itching/anaphylaxis ; Start 03/15/17 at 14:30 Nitroglycerin (Nitrostat Sl) 0.4 mg UNSCH PRN SL CHEST PAIN; Start 03/15/17 at 14:30 Clonidine (Catapres) 0.1 mg UNSCH PRN PO for BP > 160 systolic Last administered on 03/22/17 20:29; Start 03/15/17 at 14:30; Stop 03/23/17 at 03:00 ; Status DC Epoetin [place] (Epogen Inj) 10,000 units UNSCH PRN IV PUSH WITH DIALYSIS Last administered on 03/26/17 11:37; Start 03/15/17 at 14:30 Gelatin (Gelfoam 12 Mm/7 Mm Top) 1 foam UNSCH PRN TOP SEE LABEL COMMENTS Last administered on 03/21/17 11:13; Start 03/15/17 at 14:30 Desmopressin Acetate (Ddavp Inj) 2 mcg ONCE ONCE IV PUSH Last administered on 03/15/17 17:30; Start 03/15/17 at 16:00; Stop 03/15/17 at 16:08; Status DC Sodium Chloride 500 ml @ 40 mls/hr DAILY IV Last administered on 03/18/17 14: 56; Start 03/16/17 at 09:00; Stop 03/19/17 at 07:19; Status DC Iohexol (Omnipaque 350 Inj) 70 ml STK-MED ONCE IVCONTRAST Last administered on 03/16/17 11:04; Start 03/16/17 at 11:04; Stop 03/16/17 at 11:05; Status DC Miscellaneous Information (RASS Change Order) 1 ea ONCE ONCE XX Last administered on 03/16/17 14:15; Start 03/16/17 at 14:15; Stop 03/16/17 at 14:16; Status DC Sodium Chloride 240 meq/Syringe / Bag 60 ml @ 120 mls/hr ONCE ONCE IV Last administered on 03/16/17 21:26; Start 03/16/17 at 20:30; Stop 03/16/17 at 20:59; Status DC Midazolam HCl 100 ml @ 2 mls/hr TITRATE PRN IV SEDATION Last administered on 2/ 10/18at 02:46; Start 03/16/17 at 20:30; Stop 03/21/17 at 09:23; Status DC Acetylcysteine (Mucomyst 10% Neb) 2 ml UNSCH X1 NEB ; Start 03/16/17 at 22:30; Stop 03/16/17 at 22:30; Status DC Acetylcysteine (Mucomyst 10% Neb) 2 ml Q6HR NEB NEB ; Start 03/17/17 at 22:00; Status Cancel Acetylcysteine (Mucomyst 20% Neb) 2 ml UNSCH X1 NEB ; Start 03/16/17 at 22:45; Stop 03/17/17 at 02:00; Status Cancel Acetylcysteine (Mucomyst 10% Neb) 2 ml Q6HR NEB NEB Last administered on at 19:27; Start 03/16/17 at 22:45; Stop 03/20/17 at 22:44; Status DC Metoprolol Tartrate (Lopressor Inj) 5 mg NOW ONCE IV PUSH Last administered on 03/16/17at 23:10; Start 03/16/17 at 23:00; Stop 03/16/17 at 23:01; Status DC Desmopressin Acetate 16 mcg/ Sodium Chloride 54 ml @ 101 mls/hr ONCE ONCE IV Last administered on 03/17/17at 01:20; Start 03/17/17 at 00:15; Stop 03/17/17 at 00: 47; Status DC Piperacillin Sod/ Tazobactam Sod 50 ml @ 100 mls/hr Q8H IV Last administered on 03/30/17at 08:01; Start 03/17/17 at 09:00 Vancomycin HCl 1000 mg/Sodium Chloride 250 ml @ 250 mls/hr ONCE ONCE IV Last administered on 03/17/17at 11:36; Start 03/17/17 at 08:00; Stop 03/17/17 at 08:59; Status DC Pharmacy Profile Note 0 ml @ 0 mls/hr UNSCH OTHER ; Start 03/17/17 at 07:45; Stop 03/19/17 at 14:39; Status DC Sodium Chloride 250 ml @ 15 mls/hr ONCE ONCE IV Last administered on at 09:15; Start 03/17/17 at 09:15; Stop 03/17/17 at 15:07; Status DC Amlodipine Besylate (Norvasc) 10 mg DAILY PO Last administered on 03/17/17 11: 35; Start 03/17/17 at 09:30; Stop 03/17/17 at 12:43; Status DC Propranolol HCl (Inderal) 10 mg Q8HR PO Last administered on 03/23/17at 05:54; Start 03/17/17 at 09:30; Stop 03/23/17 at 08:31; Status DC Potassium Chloride 100 ml @ 50 mls/hr ONCE ONCE IV Last administered on at 11:37; Start 03/17/17 at 10:30; Stop 03/17/17 at 12:30; Status DC Nicardipine HCl 25 mg/Sodium Chloride 260 ml @ 52 mls/hr TITRATE PRN IV Blood pressure management Last administered on 03/21/17at 15:11; Start 03/17/17 at 12:45 ; Stop 03/21/17 at 18:49; Status DC Iodixanol (VISIPAQUE 320 INJ (Rad CT)) 50 ml STK-MED ONCE IVCONTRAST Last administered on 03/17/17at 14:22; Start 03/17/17 at 14:22; Stop 03/17/17 at 14:23; Status DC Sodium Chloride 250 ml @ 15 mls/hr ONCE ONCE IV Last administered on 15:15; Start 03/17/17 at 15:15; Stop 03/18/17 at 07:54; Status DC Azithromycin 500 mg/Sodium Chloride 250 ml @ 250 mls/hr Q24H IV Last administered on 03/19/17at 17:31; Start 03/17/17 at 17:00; Stop 03/20/17 at 06:28; Status DC Miscellaneous Information (RASS Change Order) 1 ea ONCE ONCE XX Last administered on 03/18/17 03:12; Start 03/18/17 at 03:00; Stop 03/18/17 at 03:01; Status DC Fentanyl Citrate 250 ml @ 5 mls/hr TITRATE PRN IV SEDATION Last administered on 03/20/17at 22:15; Start 03/18/17 at 03:00; Stop 03/21/17 at 09:23; Status DC Propofol 100 ml @ 1.743 mls/ hr TITRATE PRN IV SEDATION Last administered on at 04:01; Start 03/18/17 at 03:00; Stop 03/21/17 at 09:23; Status DC Lactulose (Lactulose Liq) 30 ml DAILY PO Last administered on 03/20/17at 08:08; Start 03/18/17 at 09:00; Stop 03/20/17 at 11:02; Status DC Vancomycin/Sodium Chloride 200 ml @ 200 mls/hr ONCE ONCE IV ; Start 03/18/17 at 16:00; Stop 03/18/17 at 16:59; Status Cancel Albuterol/ Ipratropium (Duoneb Neb) 1 ampule Q6HR NEB NEB Last administered on 03/22/17at 07:25; Start 03/18/17 at 16:00; Stop 03/22/17 at 15:00; Status DC Vancomycin HCl 1000 mg/Sodium Chloride 250 ml @ 250 mls/hr ONCE ONCE IV Last administered on 03/18/17at 15:58; Start 03/18/17 at 16:00; Stop 03/18/17 at 16:59; Status DC Sodium Chloride 240 meq/Syringe / Bag 60 ml @ 120 mls/hr ONCE ONCE IV-CENTRAL Last administered on 03/18/17at 17:34; Start 03/18/17 at 17:15; Stop 03/18/17 at 17:44; Status DC Sodium Chloride 500 ml @ 10 mls/hr CONTINUOUS IV Last administered on at 20:15; Start 03/19/17 at 07:15; Stop 03/21/17 at 09:23; Status DC Artificial Tears (Tears Naturale Opth Soln) 1 drop Q8HR EACH EYE Last administered on 03/30/17at 05:09; Start 03/19/17 at 14:00 Calcium Acetate (Phoslo) 667 mg TID PO Last administered on 03/30/17at 08:01; Start 03/19/17 at 09:00 Methylnaltrexone [place] (Relistor Inj) 12 mg ONCE ONCE SQ Last administered on 03/19/17at 08:09; Start 03/19/17 at 07:30; Stop 03/19/17 at 07:34; Status DC Polyethylene Glycol (Miralax) 17 gm BID NG Last administered on 03/29/17at 07:43 ; Start 03/19/17 at 09:00 Dextrose (D50w (Vial) Inj) 50 ml UNSCH PRN IV PUSH HYPOGLYCEMIA-SEE COMMENTS; Start 03/19/17 at 07:30; Stop 03/28/17 at 12:24; Status DC Glucagon (Glucagon Inj) 1 mg UNSCH PRN OTHER HYPOGLYCEMIA-SEE COMMENTS; Start 03/19/17 at 07:30; Stop 03/28/17 at 12:24; Status DC Insulin Human Regular (NovoLIN R SUPPLEMENTAL SCALE) 1 Q6HR SQ Last administered on 03/23/17at 00:17; Start 03/19/17 at 12:00; Stop 03/28/17 at 12:24 ; Status DC Glycerin (Glycerin Adult Supp) 2 gm ONCE ONCE RECTAL Last administered on at 08:09; Start 03/19/17 at 07:30; Stop 03/19/17 at 07:34; Status DC Rocuronium [place] (Zemuron Inj) 100 mg STK-MED ONCE .ROUTE ; Start 03/19/17 at 14:22; Stop 03/19/17 at 14:23; Status DC Sodium Chloride 240 meq/Syringe / Bag 60 ml @ 120 mls/hr NOW ONCE IV Last administered on 03/19/17at 15:06; Start 03/19/17 at 14:45; Stop 03/19/17 at 15:14; Status DC Rocuronium [place] (Zemuron Inj) 100 mg NOW ONCE IV PUSH Last administered on 03/19/17at 14:23; Start 03/19/17 at 14:30; Stop 03/19/17 at 14:43; Status DC Albuterol Sulfate (Albuterol Neb) 2.5 mg Q2HR NEB PRN NEB dyspnea; Start at 06:30 Lactulose (Lactulose Liq) 30 ml Q6HR OG-TUBE Last administered on 03/29/17at 17: 25; Start 03/20/17 at 12:00 Mineral Oil (Kondremul Liq) 30 ml ONCE ONCE PO Last administered on 03/21/17at 11:29; Start 03/21/17 at 08:00; Stop 03/21/17 at 08:18; Status DC Methylnaltrexone [place] (Relistor Inj) 12 mg ONCE ONCE SQ Last administered on 03/21/17at 11:29; Start 03/21/17 at 08:00; Stop 03/21/17 at 08:17; Status DC Glycerin (Glycerin Adult Supp) 2 gm ONCE ONCE RECTAL Last administered on 03/21at 11:29; Start 03/21/17 at 08:00; Stop 03/21/17 at 08:17; Status DC Fentanyl Citrate 250 ml @ 5 mls/hr TITRATE PRN IV SEDATION Last administered on 03/26/17at 04:14; Start 03/21/17 at 09:30; Stop 03/26/17 at 09:11; Status DC Propofol 100 ml @ 1.743 mls/ hr TITRATE PRN IV SEDATION Last administered on at 17:39; Start 03/21/17 at 09:30; Stop 03/26/17 at 09:11; Status DC Amlodipine Besylate (Norvasc) 5 mg DAILY PO Last administered on 03/22/17at 07: 45; Start 03/21/17 at 09:30; Stop 03/22/17 at 19:42; Status DC Miscellaneous Information (RASS Change Order) 1 ea ONCE ONCE XX Last administered on 03/21/17at 10:00; Start 03/21/17 at 10:00; Stop 03/21/17 at 10:24 ; Status DC Nicardipine HCl 50 mg/Sodium Chloride 500 ml @ 50 mls/hr TITRATE PRN IV Blood pressure management Last administered on 03/21/17at 20:05; Start 03/21/17 at 19: 00; Stop 03/21/17 at 23:55; Status DC Fentanyl Citrate (fentaNYL INJ) 50 mcg Q1H PRN IV PUSH PAIN/AGITATION Last administered on 03/30/17at 05:08; Start 03/21/17 at 21:15; Stop 03/30/17 at 09:05 ; Status DC Nicardipine HCl 50 mg/Sodium Chloride 250 ml @ 25 mls/hr TITRATE PRN IV Blood pressure management; Start 03/21/17 at 23:45; Stop 03/21/17 at 23:58; Status DC Nicardipine HCl 50 mg/Sodium Chloride 250 ml @ 25 mls/hr TITRATE PRN IV Blood pressure management Last administered on 03/23/17at 07:16; Start 03/21/17 at 23: 45; Stop 03/23/17 at 08:17; Status DC Heparin Sodium (Porcine) (Heparin Inj) 5,000 units Q12HR SQ Last administered on 03/26/17at 20:03; Start 03/22/17 at 21:00; Stop 03/29/17 at 10:36; Status DC Albuterol/ Ipratropium (Duoneb Neb) 1 ampule Q6HR NEB NEB Last administered on 03/26/17at 03:40; Start 03/22/17 at 16:00; Stop 03/26/17 at 07:07; Status DC Bisacodyl (Dulcolax Supp) 10 mg ONCE ONCE RECTAL Last administered on at 16:18; Start 03/22/17 at 15:00; Stop 03/22/17 at 15:05; Status DC Methylnaltrexone [place] (Relistor Inj) 12 mg ONCE ONCE SQ Last administered on 03/22/17at 16:18; Start 03/22/17 at 15:00; Stop 03/22/17 at 15:05; Status DC Labetalol HCl (Trandate Inj) 10 mg Q4HR PRN IV PUSH SBP >160 Last administered on 03/24/17at 15:14; Start 03/22/17 at 19:45; Stop 03/24/17 at 18:30; Status DC Clonidine (Catapres-Tts 0.2 Mg Patch.7d) 1 patch Q7D T-DERMAL Last administered on 03/22/17at 22:20; Start 03/22/17 at 20:00; Stop 03/25/17 at 09:27 ; Status DC Miscellaneous Information 1 Q7D T-DERMAL ; Start 03/29/17 at 20:00; Stop at 20:00; Status DC Clonidine (Catapres) 0.1 mg Q6H PRN PO for BP > 160 systolic Last administered on 03/25/17at 21:06; Start 03/23/17 at 03:15; Stop 03/26/17 at 07:09 ; Status DC Clevidipine 50 ml @ 2 mls/hr TITRATE PRN IV Blood Pressure Management Last administered on 03/25/17at 07:13; Start 03/23/17 at 09:00; Stop 03/25/17 at 09:27 ; Status DC Propranolol HCl (Inderal) 20 mg Q8HR PO ; Start 03/23/17 at 14:00; Stop at 14:00; Status DC Sodium Chloride 500 ml @ 30 mls/hr CONTINUOUS IV Last administered on at 12:52; Start 03/23/17 at 09:00; Stop 03/25/17 at 16:57; Status DC Metoclopramide HCl (Reglan Inj) 5 mg Q8H IV PUSH Last administered on at 23:48; Start 03/23/17 at 09:00 Metoprolol Tartrate (Lopressor Inj) 5 mg Q6H IV PUSH Last administered on at 10:00; Start 03/23/17 at 10:00; Stop 03/24/17 at 11:16; Status DC Diatrizoate Meglum/ Diatrizoate Sod ( Gastroview Liq) 18 ml ONCE ONCE PO Last administered on 03/23/17at 10:59; Start 03/23/17 at 09:30; Stop 03/23/17 at 09:31; Status DC Hydromorphone HCl (Dilaudid Pf Inj) 0.75 mg Q4HR IV PUSH ; Start 03/23/17 at 12: 00; Status UNV Lorazepam (Ativan Inj) 1 mg Q4HR IV PUSH ; Start 03/23/17 at 12:00; Status UNV Carvedilol (Coreg) 12.5 mg Q12HR PO ; Start 03/23/17 at 21:00; Stop 03/23/17 at 21:00; Status DC Carvedilol (Coreg) 12.5 mg Q12HR PO Last administered on 03/24/17at 09:00; Start 03/23/17 at 18:00; Stop 03/24/17 at 11:43; Status DC Iohexol (Omnipaque 350 Inj) 71 ml STK-MED ONCE IVCONTRAST Last administered on 03/23/17at 18:20; Start 03/23/17 at 18:20; Stop 03/23/17 at 18:21; Status DC Metoprolol Tartrate (Lopressor Inj) 5 mg Q6H IV PUSH Last administered on at 05:07; Start 03/24/17 at 12:00 Oxycodone HCl (Roxicodone) 5 mg Q4HR PO Last administered on 03/30/17at 07:53; Start 03/24/17 at 12:00 Carvedilol (Coreg) 25 mg Q12HR PO Last administered on 03/30/17at 08:01; Start 03/24/17 at 21:00 Methylnaltrexone [place] (Relistor Inj) 12 mg ONCE ONCE SQ Last administered on 03/24/17at 13:54; Start 03/24/17 at 11:45; Stop 03/24/17 at 12:36; Status DC Hydralazine HCl (Apresoline Inj) 20 mg Q4H PRN IV PUSH SBP>160, DBP>90 Last administered on 03/30/17at 07:58; Start 03/25/17 at 03:30 Labetalol HCl (Trandate Inj) 10 mg Q4H PRN IV PUSH SBP>160, DBP>90 Last administered on 03/25/17at 04:05; Start 03/25/17 at 03:30; Stop 03/25/17 at 15:35 ; Status DC Lisinopril (Prinivil) 10 mg Q12HR PO Last administered on 03/25/17at 12:37; Start 03/25/17 at 09:30; Stop 03/25/17 at 15:36; Status DC Clonidine (Catapres-Tts 0.3 Mg Patch.7d) 1 patch Q7D T-DERMAL Last administered on 03/25/17at 13:39; Start 03/25/17 at 12:00 Famotidine (Pepcid) 10 mg Q12H NG Last administered on 03/29/17at 05:18; Start 03/25/17 at 16:00; Stop 03/29/17 at 13:54; Status DC Levetriacetam (Keppra) 500 mg Q12HR PO Last administered on 03/30/17at 08:03; Start 03/25/17 at 21:00 Miscellaneous Information 1 Q7D T-DERMAL ; Start 04/01/17 at 12:00 Levofloxacin/ Dextrose 50 ml @ 50 mls/hr Q24H IV Last administered on at 15:49; Start 03/25/17 at 15:00; Stop 03/26/17 at 10:30; Status DC Labetalol HCl (Trandate Inj) 10 mg Q1HR PRN IV PUSH SBP>160, DBP>90 Last administered on 03/30/17at 03:07; Start 03/25/17 at 15:45 Lisinopril (Prinivil) 20 mg Q12HR PO Last administered on 03/25/17at 21:07; Start 03/25/17 at 21:00; Stop 03/26/17 at 07:09; Status DC Nicardipine HCl 25 mg/Sodium Chloride 250 ml @ 50 mls/hr TITRATE PRN IV Blood Pressure Management Last administered on 03/27/17at 23:34; Start 03/25/17 at 17: 15 Albuterol/ Ipratropium (Duoneb Neb) 1 ampule Q6HR NEB NEB Last administered on 03/29/17at 08:17; Start 03/26/17 at 10:00; Stop 03/29/17 at 10:35; Status DC Clonidine (Catapres) 0.1 mg Q4HR PRN PO for BP > 160 systolic Last administered on 03/30/17at 02:26; Start 03/26/17 at 07:15 Lisinopril (Prinivil) 40 mg Q12HR PO Last administered on 03/30/17at 08:03; Start 03/26/17 at 09:00 Levofloxacin/ Dextrose 50 ml @ 50 mls/hr Q24H IV ; Start 03/26/17 at 10:30; Stop 03/26/17 at 10:31; Status DC Levofloxacin/ Dextrose 50 ml @ 50 mls/hr Q24H IV Last administered on at 08:09; Start 03/27/17 at 09:00; Stop 03/28/17 at 07:31; Status DC Vecuronium [place] (Norcuron 10 Mg Inj) 10 mg METHODS SPECIALIST IV PUSH ; Start 03/27/17 at 11:00; Stop 03/29/17 at 10:59; Status DC Fentanyl Citrate 250 ml @ 5 mls/hr TITRATE PRN IV SEDATION Last administered on 03/28/17at 10:00; Start 03/26/17 at 15:30 Quetiapine Fumarate (SEROquel) 50 mg Q8HR PO Last administered on 03/29/17at 05: 18; Start 03/27/17 at 10:00; Stop 03/29/17 at 09:54; Status DC Haloperidol Lactate (Haldol Inj) 2 mg Q4H PRN IV PUSH AGITATION Last administered on 03/30/17at 09:21; Start 03/27/17 at 09:15 Midazolam HCl (Versed Inj) 5 mg STK-MED ONCE .ROUTE ; Start 03/27/17 at 10:43; Stop 03/27/17 at 10:44; Status DC Rocuronium [place] (Zemuron Inj) 100 mg STK-MED ONCE .ROUTE ; Start 03/27/17 at 10:43; Stop 03/27/17 at 10:44; Status DC Midazolam HCl (Versed Inj) 5 mg NOW ONCE IV PUSH Last administered on at 11:51; Start 03/27/17 at 12:30; Stop 03/27/17 at 12:31; Status DC Rocuronium [place] (Zemuron Inj) 100 mg NOW ONCE IV PUSH Last administered on 03/27/17at 11:52; Start 03/27/17 at 12:30; Stop 03/27/17 at 12:31; Status DC Amlodipine Besylate (Norvasc) 5 mg ONCE ONCE PEG Last administered on at 15:36; Start 03/27/17 at 14:45; Stop 03/27/17 at 14:46; Status DC Desmopressin Acetate (Ddavp Inj) 1 mcg ONCE ONCE IV PUSH Last administered on 03/28/17at 07:04; Start 03/28/17 at 06:30; Stop 03/28/17 at 06:31; Status DC Levofloxacin/ Dextrose 50 ml @ 50 mls/hr Q48H IV Last administered on at 08:55; Start 03/29/17 at 09:00 Lidocaine/ Epinephrine (Xylocaine-Epi 1%-1:100,000 Inj) 30 ml STK-MED ONCE .ROUTE Last administered on 03/28/17at 13:39; Start 03/28/17 at 13:39; Stop at 13:40; Status DC Pantoprazole Sodium (Protonix Inj) 40 mg DAILY IV PUSH Last administered on at 08:02; Start 03/28/17 at 13:45 Quetiapine Fumarate (SEROquel) 100 mg Q8HR PO Last administered on 03/30/17at 05 :08; Start 03/29/17 at 14:00 Albuterol/ Ipratropium (Duoneb Neb) 1 ampule Q6HR NEB NEB Last administered on 03/30/17at 07:55; Start 03/29/17 at 16:00 Heparin Sodium (Porcine) (Heparin Inj) 5,000 units Q12HR SQ ; Start 03/30/17 at 21:00 Nifedipine (Procardia) 10 mg Q8HR PO Last administered on 03/29/17at 21:00; Start 03/29/17 at 16:15; Stop 03/30/17 at 03:59; Status DC Nifedipine (Procardia) 20 mg Q8HR PO Last administered on 03/30/17at 05:09; Start 03/30/17 at 06:00 Potassium Chloride (KCl Powder) 10 meq ONCE ONCE PO Last administered on 08:06; Start 03/30/17 at 07:45; Stop 03/30/17 at 07:47; Status DC Valproic Acid (Depakene Liq) 250 mg BID PO Last administered on 03/30/17at 09:21 ; Start 03/30/17 at 10:00 (Saulo King MD) Plan Plan Remarks continue neuro check and follow up exam cont critical care management (Libia Jeffery) Attending Statement Continue neuro checks Will undergo a trecheostomy today Will undergo a gastrostomy tube today I reviewed her follow up CT. She has an enlarging hygroma causing mass effect and midline shift May need a ZEYNEP HOLE NEXT WEEK Will discuss with her family when they come in The exam, history, and the medical decision-making described in the above note were completed with the assistance of the mid-level provider. I reviewed and agree with the findings presented. I attest that I had a [id number] encounter with the patient on the same day, and personally performed and documented my assessment and findings in the medical record. (Saulo King MD) Libia Jeffery Mar 26, 2017 14:29 Saulo King MD Mar 30, 2017 09:33
[2017-03-26] MEDS: hydrALAZINE HCL 20 MG/ML VIAL IV PUSH PRN (14:51)
[2017-03-26] MEDS: HALOPERIDOL LACTATE 5 MG/ML AMP IV PRN (14:53)
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
[2017-03-26] MEDS: REMOVE OLD LIDOCAINE PATCH T-DERMAL SCH (20:10)
[2017-03-27] VITALS (18 sets, daily range): BP systolic 137–158; BP diastolic 70–85; PULSE 73–96; RESP 14; TEMP 98.1–99.2; O2SAT 96–100
[2017-03-27] MEDS: HALOPERIDOL LACTATE 5 MG/ML AMP IV PRN (02:06)
[2017-03-27] MEDS: RESP: ALBUTEROL 2.5 MG/IPRATROPIUM 0.5 MG NEB (SCH) NEB ×3 (03:01→22:00)
[2017-03-27] MEDS: cloNIDine HCL 0.1 MG TAB PO PRN (03:08)
[2017-03-27] MEDS: niCARdipine 25 MG/NS 250 ML Vial2Bag or IV room IV PRN ×18 (03:09→23:34)
[2017-03-27] MEDS: FAMOTIDINE 20 MG TAB NG SCH ×2 (03:09→15:37)
[2017-03-27] MEDS: METOPROLOL TARTRATE 5 MG/5 ML VIAL IV PUSH SCH ×4 (05:54→23:18)
[2017-03-27] MEDS: LACTULOSE SYRUP 20 GM/30 ML CUP OG-TUBE SCH ×4 (05:55→23:19)
[2017-03-27] MEDS: ARTIFICIAL TEARS OPTH SOLN 15 ML BTL EACH EYE SCH ×3 (05:55→23:07)
[2017-03-27] MEDS: INSULIN NovoLIN REGULAR SUPPLEMENTAL SCALE SQ SCH ×4 (06:00→18:00)
[2017-03-27] MEDS: fentaNYL DRIP 250 ML IV PRN ×2 (06:22→18:30)
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
[2017-03-27 07:55] LABS: HEMATOCRIT 31.6 % (35.0-46.0); HEMOGLOBIN 10.8 GM/DL (11.6-15.3); MEAN CELL VOLUME 91.4 FL (80.0-100.0); MEAN CORPUSCULAR HEMOGLOBIN 31.1 PG (27.0-34.0); MEAN CORPUSCULAR HGB CONC 34.1 % (32.0-36.0); MEAN PLATELET VOLUME 8.4 FL (7.0-11.0); PLATELET COUNT 207 TH/MM3 (150-450); RED BLOOD COUNT 3.46 MIL/MM3 (4.00-5.30); RED CELL DISTRIBUTION WIDTH 17.5 % (11.6-17.2); WHITE BLOOD COUNT 12.2 TH/MM3 (4.0-11.0)
[2017-03-27] MEDS: CHLORHEXIDINE 0.12% (ORAL KIT) 15 ML CUP MT SCH ×2 (08:00→23:06)
[2017-03-27 08:02] LABS: INTERNATIONAL NORMALIZED RATIO 1.1 RATIO; PROTHROMBIN TIME - PATIENT 11.4 SEC (9.8-11.6)
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
[2017-03-27] MEDS: LIDOCAINE HCL 5% PATCH T-DERMAL SCH (08:09)
[2017-03-27] MEDS: PIPERACIL-TAZO 2.25 GM PREMIX 50 ML IV SCH ×2 (08:09→16:13)
[2017-03-27] MEDS: METOCLOPRAMIDE HCL 10 MG/2 ML VIAL IV PUSH SCH ×2 (08:09→16:13)
[2017-03-27 08:16] LABS: BICARBONATE 26.3 MEQ/L (21.0-32.0); CALCIUM 8.9 MG/DL (8.5-10.1); CREATININE 4.26 MG/DL (0.50-1.00)
[2017-03-27] MEDS ORDERED: LEVOFLOXACIN 250 MG PREMIX INJ 50 ML IV SCH (09:00)
[2017-03-27] MEDS: DOCUSATE SODIUM 50 MG/SENNA 8.6 MG TAB PO SCH ×2 (09:00→21:00)
[2017-03-27] MEDS: SODIUM CHLORIDE 0.9% FLUSH 10 ML FLUSH IV FLUSH SCH ×2 (09:00→23:06)
[2017-03-27] MEDS: POLYETHYLENE GLYCOL 17 GM PKG NG SCH ×2 (09:00→21:00)
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
--- NOTE | 2017-03-27 09:47 | PD.PROCEDR ---
GI Procedure PROCEDURE PERFORMED EGD with biopsy and PEG placement INDICATION FOR PROCEDURE Traumatic brain injury patient needing long-term nutritional access PROCEDURE: The procedure, risks and benefits were discussed with Ms. Painting and informed consent was obtained. Anesthesia sedated her with Diprivan. She was placed in the left lateral decubitus position. EGD: The Pentax videoscope was introduced through the oropharynx and advanced to the second portion of the duodenum under direct visualization. Retroflexion was performed in the stomach. FINDINGS: Esophagus there was a mid esophageal ulcer of unclear significance on top of a bulge this was biopsied and CT of the chest was reviewed with no obvious findings Stomach there was some patchy erythema noted in the antrum and gastric body otherwise no ulcers no erosions a biopsy was done in the antrum for further evaluation The duodenum this was normal Following the evaluation of the stomach and the duodenum the stomach was insufflated with air and the area of PEG placement was identified through indentation and transillumination the area was prepped and draped in usual fashion 5 cc of lidocaine were injected locally a small incision was made then an Angiocath was passed into the stomach through which a guidewire was passed this was retrieved with the scope into that a PEG tube was attached and pulled into place and thereafter secured in usual fashion The patient tolerated procedure well and there are no immediate complications ESTIMATED BLOOD LOSS: None SPECIMENS REMOVED: Esophageal and gastric biopsies COMPLICATIONS: None IMPRESSION: Esophageal ulcer mid esophagus Gastritis Successful PEG placement PLAN: Await biopsy results Recommend PPI daily PLAN: 1. May use PEG tube for medications today 2. May start feeding tomorrow 3. May obtain nutritional consult for tube feeding 4. Flush tube with 50 cc of water every 4-6 hours 5. Always flush tube after feedings 6. Apply abdominal binder as necessary 7. Clamp G-tube after use and flush. Case discussed with Ankur Chapin MD Mar 27, 2017 09:47
[2017-03-27] MEDS: LISINOPRIL 20 MG TAB PO SCH ×2 (10:28→23:07)
[2017-03-27] MEDS: CALCIUM ACETATE 667 MG CAP PO SCH ×3 (10:28→18:19)
[2017-03-27] MEDS: levETIRAcetam 500 MG TAB PO SCH ×2 (10:28→23:07)
[2017-03-27] MEDS: CARVEDILOL 12.5 MG TAB PO SCH ×2 (10:29→23:06)
[2017-03-27] MEDS: QUEtiapine FUMARATE 25 MG TAB PO SCH ×3 (10:31→23:07)
[2017-03-27] MEDS ORDERED: ROCURONIUM INJ 50 MG/5 ML VIAL ONE (10:43)
[2017-03-27] MEDS ORDERED: MIDAZOLAM HCL 5 MG/ML VIAL (1 ML) ONE (10:43)
[2017-03-27] MEDS ORDERED: VECURONIUM BROMIDE 10 MG VIAL IV PUSH SCH (11:00)
[2017-03-27] MEDS ORDERED: PROPOFOL 200 MG/20 ML AMP IV ONE (12:00)
--- NOTE | 2017-03-27 12:24 | PD.PROCEDR ---
Procedure Note Procedure DATE: 03/27/2017 Fiberoptic bronchoscopy for tracheostomy placement INDICATION: Vent dependent respiratory failure CONSENT Informed consent for procedure was obtained Procedure note The patient was placed in supine position. Patient was on ACV 14/450/10/100. saturations 100%. Patient is currently on fentanyl gtt @ 250 mcg/hr and received 50 mcg fentanyl iv, 5 mg midazolam iv and 50 mg rocuronium IV... I entered the 7.5 ET tube with fiberoptic bronchoscopy. Through a sealed side hole in the vent circuit the scope was introduced into the airway. The tracheobronchial tree was inspected. Normal branching anatomy. Moderate amounts of thick secretions suctioned from both sides. No inflammation. The scope and orotracheal tube were then withdrawn to the level of the cricoid and used to assist with insertion of a percutaneous tracheostomy by Dr. Moncada. After insertion, the scope was introduced through the new trach, confirming good position in the mid-trachea. Sats were maintained > 95% throughout the procedure.. COMPLICATIONS: No apparent complications. Rocael Villa MD Mar 27, 2017 12:24
[2017-03-27] MEDS ORDERED: MIDAZOLAM HCL 5 MG/5 ML VIAL IV PUSH ONE (12:30)
[2017-03-27] MEDS ORDERED: ROCURONIUM INJ 100 MG/10 ML VIAL IV PUSH ONE (12:30)
--- NOTE | 2017-03-27 12:53 | RADRPT ---
EXAM DATE/TIME: 03/27/2017 12:29 [facility] COMPARISON: CHEST SINGLE AP, March 23, 2017, 2:52. INDICATIONS : Post tracheostomy MEDICAL HISTORY : Hypertension. Hepatitis C. Renal insufficiency. Subarachnoid hemmorhage SURGICAL HISTORY : aneurysm clip ENCOUNTER: Initial ACUITY: 2 weeks PAIN SCORE: Non-responsive. LOCATION: Bilateral chest FINDINGS: Interval placement of tracheostomy with tip at the level of the clavicles. Stable right subclavian ce ntral line with tip obscured. Progression of airspace disease in the right lower lung zone. Redemonst ration of airspace disease in the left lower lung zone. Cardiomegaly some contours are stable. Remain margarito of the exam is unchanged. CONCLUSION: 1. Tracheostomy tube in good position. 2. Progression of airspace disease in the right lower lung zone. 3. Stable left lower lung zone airspace disease. Noe Hunter MD on March 27, 2017 at 12:49 Board Certified Radiologist. This report was verified electronically.
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
[2017-03-27] MEDS ORDERED: amLODIPine BESYLATE 5 MG TAB PEG ONE (14:45)
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
[2017-03-27] MEDS: REMOVE OLD LIDOCAINE PATCH T-DERMAL SCH (23:07)
[2017-03-28] VITALS (14 sets, daily range): BP systolic 135–159; BP diastolic 72–103; PULSE 78–92; RESP 14; TEMP 98.2–99; O2SAT 96–100
[2017-03-28] MEDS: PIPERACIL-TAZO 2.25 GM PREMIX 50 ML IV SCH ×4 (00:47→23:43)
[2017-03-28] MEDS: METOCLOPRAMIDE HCL 10 MG/2 ML VIAL IV PUSH SCH ×4 (00:47→23:44)
[2017-03-28] MEDS: FAMOTIDINE 20 MG TAB NG SCH ×2 (03:55→14:37)
[2017-03-28 04:15] LABS: AUTOMATED NEUTROPHIL # 13.3 TH/MM3 (1.8-7.7); BASOPHIL # 0.1 TH/MM3 (0-0.2); BASOPHIL % 0.5 % (0.0-2.0); EOSINOPHIL # 0.2 TH/MM3 (0-0.4); EOSINOPHIL % 1.3 % (0.0-4.0); HEMATOCRIT 31.1 % (35.0-46.0); HEMOGLOBIN 10.4 GM/DL (11.6-15.3); LYMPH % 4.2 % (9.0-44.0); LYMPHOCYTE # 0.6 TH/MM3 (1.0-4.8); MEAN CELL VOLUME 91.8 FL (80.0-100.0); MEAN CORPUSCULAR HEMOGLOBIN 30.6 PG (27.0-34.0); MEAN CORPUSCULAR HGB CONC 33.4 % (32.0-36.0); MEAN PLATELET VOLUME 8.9 FL (7.0-11.0); MONO % 4.8 % (0.0-8.0); MONOCYTE # 0.7 TH/MM3 (0-0.9); NEUT % 89.2 % (16.0-70.0); PLATELET COUNT 211 TH/MM3 (150-450); RED BLOOD COUNT 3.39 MIL/MM3 (4.00-5.30); RED CELL DISTRIBUTION WIDTH 17.7 % (11.6-17.2)
[2017-03-28 04:36] LABS: BICARBONATE 24.4 MEQ/L (21.0-32.0); CREATININE 4.83 MG/DL (0.50-1.00)
[2017-03-28] MEDS: RESP: ALBUTEROL 2.5 MG/IPRATROPIUM 0.5 MG NEB (SCH) NEB ×4 (05:10→20:11)
[2017-03-28] MEDS: INSULIN NovoLIN REGULAR SUPPLEMENTAL SCALE SQ SCH ×3 (06:00→12:00)
--- NOTE | 2017-03-28 06:02 | RADRPT ---
EXAM DATE/TIME: 03/28/2017 03:43 [place] COMPARISON: CHEST SINGLE AP, March 27, 2017, 12:29. INDICATIONS : Short of breath. MEDICAL HISTORY : Hypertension. Hepatitis C. Renal insufficiency. Subarachnoid hemmorhage SURGICAL HISTORY : aneurysm clip ENCOUNTER: Subsequent ACUITY: 2 weeks PAIN SCORE: Non-responsive. LOCATION: Bilateral chest FINDINGS: Tracheostomy tube is present in satisfactory position. Right subclavian line is present with tip over lapping the expected region of the SVC and appears coiled in the subcutaneous tissues. Cardiomegaly h as not changed. Right pleural effusion is present with possible left pleural effusion and there is al so diffuse pulmonary edema. CONCLUSION: Bilateral pleural effusions and pulmonary edema and the edema appears slightly worse since the prior exam. Indio Romeo MD on March 28, 2017 at 5:59 Board Certified Radiologist. This report was verified electronically.
[2017-03-28] MEDS ORDERED: DESMOPRESSIN ACETATE 4 MCG/ML VIAL IV PUSH ONE (06:30)
[2017-03-28] MEDS: ARTIFICIAL TEARS OPTH SOLN 15 ML BTL EACH EYE SCH ×3 (06:33→20:34)
[2017-03-28] MEDS: METOPROLOL TARTRATE 5 MG/5 ML VIAL IV PUSH SCH ×4 (06:33→23:44)
[2017-03-28] MEDS: LACTULOSE SYRUP 20 GM/30 ML CUP OG-TUBE SCH ×4 (06:33→23:44)
[2017-03-28] MEDS: QUEtiapine FUMARATE 25 MG TAB PO SCH ×3 (06:33→20:34)
[2017-03-28 06:52] LABS: INTERNATIONAL NORMALIZED RATIO 1.1 RATIO; PROTHROMBIN TIME - PATIENT 11.2 SEC (9.8-11.6)
[2017-03-28] MEDS: CHLORHEXIDINE 0.12% (ORAL KIT) 15 ML CUP MT SCH ×2 (08:00→20:00)
[2017-03-28] MEDS: levETIRAcetam 500 MG TAB PO SCH ×2 (08:25→20:33)
[2017-03-28] MEDS: CARVEDILOL 12.5 MG TAB PO SCH ×2 (08:26→20:33)
[2017-03-28] MEDS: POLYETHYLENE GLYCOL 17 GM PKG NG SCH ×2 (08:26→20:35)
[2017-03-28] MEDS: CALCIUM ACETATE 667 MG CAP PO SCH ×3 (08:26→17:59)
[2017-03-28] MEDS: DOCUSATE SODIUM 50 MG/SENNA 8.6 MG TAB PO SCH ×2 (08:26→20:35)
[2017-03-28] MEDS: LISINOPRIL 20 MG TAB PO SCH ×2 (08:26→20:33)
[2017-03-28] MEDS: LIDOCAINE HCL 5% PATCH T-DERMAL SCH (08:26)
[2017-03-28] MEDS: SODIUM CHLORIDE 0.9% FLUSH 10 ML FLUSH IV FLUSH SCH ×2 (08:27→20:35)
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
[2017-03-28] MEDS: fentaNYL DRIP 250 ML IV PRN (10:00)
--- NOTE | 2017-03-28 10:48 | HHI.NSPN ---
History Chief Complaint: Unable to obtain due to patient's clinical condition. Interval History Nurses report patient is stable. She had a tracheostomy placed yesterday. Some bleeding from the tracheostomy site System Review Comments Unobtainable Exam Results Vital Signs Date Time Temp Pulse Resp B/P (MAP) Pulse Ox O2 Delivery O2 Flow Rate FiO2 03/28/17 08:27 84 158/89 03/28/17 07:47 100 40 03/28/17 04:00 98.7 14 Intake and Output 03/28/17 03/28/17 03/29/17 08:00 16:00 00:00 Intake Total 250 ml Output Total 100 ml Balance 150 ml Physical Examination Vital signs are stable Tracheostomy in place. Some bleeding from the tracheostomy site. Remains on the respirator Remains obtunded. Not following commands Previous CT reviewed evidence of hygroma on the right with mild mass-effect Medical Decision Making Impression and Plan Traumatic brain injury, unchanged We will need repeat CT to evaluate hygroma Continued neurological observation Yoseph Jarrett MD Mar 28, 2017 10:48
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
[2017-03-28] MEDS ORDERED: LIDOCAINE 1%/EPINEPHrine 1:100,000 SOLN 30 ML VIAL ONE (13:39)
--- NOTE | 2017-03-28 13:44 | HHI.GIFU ---
Subjective Remarks Pt in bed in NAD, on vent. s/p PEG tube and trach placement (Giovana Grady) Objective Vitals I&O Vital Signs Date Time Temp Pulse Resp B/P (MAP) Pulse Ox O2 Delivery O2 Flow Rate FiO2 03/28/17 12:31 97 40 03/28/17 08:27 84 158/89 03/28/17 08:00 99.0 84 14 158/89 (112) 100 03/28/17 08:00 40 03/28/17 07:47 100 40 03/28/17 06:00 80 03/28/17 05:45 80 144/80 03/28/17 04:00 85 03/28/17 04:00 40 03/28/17 04:00 98.7 85 14 150/81 (104) 100 03/28/17 02:00 82 03/28/17 01:19 100 40 03/28/17 00:00 92 03/28/17 00:00 40 03/28/17 00:00 98.7 92 14 135/72 (93) 100 03/27/17 23:34 85 154/72 03/27/17 22:00 86 03/27/17 20:00 82 03/27/17 20:00 40 03/27/17 20:00 99.1 82 14 149/79 (102) 97 03/27/17 19:36 99 40 03/27/17 18:29 79 147/77 03/27/17 18:00 90 03/27/17 16:13 86 151/73 03/27/17 16:04 87 151/72 03/27/17 16:00 99.2 86 14 151/72 (98) 100 03/27/17 16:00 40 03/27/17 16:00 86 03/27/17 15:10 100 40 03/27/17 14:04 79 135/76 03/27/17 14:00 79 I/O 03/27/17 03/27/17 03/27/17 03/28/17 03/28/17 03/28/17 07:00 15:00 23:00 07:00 15:00 23:00 Intake Total 840 ml 1050 ml 500 ml 500 ml Output Total 100 ml 100 ml 100 ml Balance 740 ml 1050 ml 400 ml 400 ml IV Total 550 ml 850 ml 300 ml 300 ml Tube Feeding 170 ml 0 ml 0 ml Other 120 ml 200 ml 200 ml 200 ml Output Urine Total 0 ml 0 ml 0 ml Stool Total 100 ml 100 ml 100 ml Gastric Drainage Total 0 ml Laboratory Laboratory Tests Test 03/28/17 03:20 03/28/17 06:22 White Blood Count 15.0 Red Blood Count 3.39 Hemoglobin 10.4 Hematocrit 31.1 Mean Corpuscular Volume 91.8 Mean Corpuscular Hemoglobin 30.6 Mean Corpuscular Hemoglobin Concent 33.4 Red Cell Distribution Width 17.7 Platelet Count 211 Mean Platelet Volume 8.9 Neutrophils (%) (Auto) 89.2 Lymphocytes (%) (Auto) 4.2 Monocytes (%) (Auto) 4.8 Eosinophils (%) (Auto) 1.3 Basophils (%) (Auto) 0.5 Neutrophils # (Auto) 13.3 Lymphocytes # (Auto) 0.6 Monocytes # (Auto) 0.7 Eosinophils # (Auto) 0.2 Basophils # (Auto) 0.1 CBC Comment DIFF FINAL Differential Comment Blood Urea Nitrogen 56 Creatinine 4.83 Random Glucose 80 Calcium Level 9.0 Sodium Level 143 Potassium Level 3.7 Chloride Level 106 Carbon Dioxide Level 24.4 Anion Gap 13 Estimat Glomerular Filtration Rate 9 Prothrombin Time 11.2 Prothromb Time International Ratio 1.1 Date/Time Source Procedure Growth Status 03/17/17 10:18 Blood Peripheral Aerobic Blood Culture - Final NO GROWTH IN 5 DAYS Complete 03/17/17 10:18 Blood Peripheral Anaerobic Blood Culture - Final NO GROWTH IN 5 DAYS Complete 03/23/17 12:50 Sputum Endotracheal Gram Stain - Final Complete 03/23/17 12:50 Sputum Culture - Final Serratia Marcescens Stenotrophomonas Maltophilia Complete Imaging Last Impressions Chest X-Ray 03/28/17599 Signed Impressions: Service Date/Time: Tuesday, March 28, 2017 03:43 - CONCLUSION: Bilateral pleural effusions and pulmonary edema and the edema appears slightly worse since the prior exam. Indio Romeo MD Head CT 03/25/17599 Signed Impressions: Service Date/Time: Saturday, March 25, 2017 05:01 - CONCLUSION: Postoperative changes are noted with increasing hypodense subdural collections and decreased subarachnoid hemorrhage. Art Cottrell MD Abdomen X-Ray 2/14/18 0600 Signed Impressions: Service Date/Time: Saturday, March 25, 2017 04:31 - CONCLUSION: Decreased bowel distention however abnormal loops of dilated small bowel remain. Art Cottrell MD Abdomen/Pelvis CT 03/23/17 0000 Signed Impressions: Service Date/Time: Thursday, March 23, 2017 18:05 - CONCLUSION: 1. Dependent consolidation and small effusions in the lungs similar to prior exam. 2. Worsening anasarca and ascites compared with the prior exam. 3. Colonic ileus. Dilatation of common bile duct and pancreatic duct similar to prior exam. 4. Stable small superior endplate fracture at L5. Rafael Phoenix MD Chest CT 03/17/17 0000 Signed Impressions: Service Date/Time: Friday, March 17, 2017 14:10 - CONCLUSION: 1. Worsening extensive bibasilar alveolar consolidations consistent with probable worsening atelectasis and/or pneumonia. Clinical correlation is recommended. 2. Mild central pulmonary vascular congestion. 3. Small bilateral pleural effusions. 4. Cardiomegaly and coronary artery calcifications. 5. Anasarca. Jordan Jung MD Neck CTA 03/16/17 1103 Signed Impressions: Service Date/Time: Thursday, March 16, 2017 11:01 - CONCLUSION: Normal carotid CTA Alex Terrell MD Head CTA 03/16/17 0000 Signed Impressions: Service Date/Time: Thursday, March 16, 2017 11:01 - CONCLUSION: Subarachnoid hemorrhage. Aneurysm is not identified. Han Santillan MD FACR Femur X-Ray 03/15/17 0600 Signed Impressions: Service Date/Time: Wednesday, March 15, 2017 06:39 - CONCLUSION: Unremarkable examination of the left femur. Art Cottrell MD Tibia/Fibula X-Ray 03/15/17 0000 Signed Impressions: Service Date/Time: Wednesday, March 15, 2017 03:58 - CONCLUSION: Unremarkable examination of the right tibia. Art Cottrell MD Cervical Spine CT 03/15/17 0000 Signed Impressions: Service Date/Time: Wednesday, March 15, 2017 14:21 - CONCLUSION: 1. No fracture or subluxation. 2. Extensive soft tissue injury greater along the left shoulder not completely imaged. Thanh Eid MD Physical Exam HEENT: ecchymosis right orbit trach to vent CHEST: coarse CARDIAC: RRR ABDOMEN: Soft,mildly distended, BS active liquid brown stool in bag EXTREMITIES: No clubbing, cyanosis, + general edema. SKIN: bruising; no rash; + mild jaundice. HEEL SCORER: on vent (Giovana Grady) Assessment and Plan Plan ASSESSMENT - 56 yo lady with TBI, intubated on vent, GI consulted for PEG tube placement. d/w pt's daughter, family would like to proceed. 03/28/17 s/p EGD with PEG tube placement, found esophageal ulcer and gastritis. bx pending. PLAN - restart TF - await bx - daily protonix - supportive care pt seen by myself and Dr Rivas and this note is written on her behalf (Giovana Grady) Physician Comments seen, examined agree with above gi will sign off call us as needed fu biopsy (Willow Rivas MD) Giovana Grady Mar 28, 2017 13:44 Willow Rivas MD Mar 28, 2017 18:59
[2017-03-28] MEDS: PANTOPRAZOLE SODIUM 40 MG VIAL IV PUSH SCH (14:37)
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
[2017-03-28] MEDS: REMOVE OLD LIDOCAINE PATCH T-DERMAL SCH (20:34)
[2017-03-29] VITALS (17 sets, daily range): BP systolic 146–171; BP diastolic 78–91; PULSE 74–84; RESP 14–18; TEMP 98.3–100.3; O2SAT 0–100
[2017-03-29] MEDS: HALOPERIDOL LACTATE 5 MG/ML AMP IV PRN ×3 (00:36→20:59)
[2017-03-29] MEDS: RESP: ALBUTEROL 2.5 MG/IPRATROPIUM 0.5 MG NEB (SCH) NEB ×4 (03:10→19:31)
[2017-03-29 04:02] LABS: AUTOMATED NEUTROPHIL # 9.5 TH/MM3 (1.8-7.7); BASOPHIL # 0.1 TH/MM3 (0-0.2); BASOPHIL % 0.9 % (0.0-2.0); EOSINOPHIL # 0.2 TH/MM3 (0-0.4); EOSINOPHIL % 1.4 % (0.0-4.0); HEMATOCRIT 25.7 % (35.0-46.0); HEMOGLOBIN 9.1 GM/DL (11.6-15.3); LYMPHOCYTE # 0.7 TH/MM3 (1.0-4.8); MEAN CELL VOLUME 91.1 FL (80.0-100.0); MEAN CORPUSCULAR HEMOGLOBIN 32.2 PG (27.0-34.0); MEAN CORPUSCULAR HGB CONC 35.3 % (32.0-36.0); MEAN PLATELET VOLUME 8.5 FL (7.0-11.0); MONO % 6.7 % (0.0-8.0); MONOCYTE # 0.8 TH/MM3 (0-0.9); PLATELET COUNT 202 TH/MM3 (150-450); RED BLOOD COUNT 2.82 MIL/MM3 (4.00-5.30); RED CELL DISTRIBUTION WIDTH 17.6 % (11.6-17.2); WHITE BLOOD COUNT 11.2 TH/MM3 (4.0-11.0)
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
[2017-03-29 04:23] LABS: ALBUMIN 2.1 GM/DL (3.4-5.0); AST (GOT) 27 U/L (15-37); BICARBONATE 28.2 MEQ/L (21.0-32.0); BLOOD UREA NITROGEN 47 MG/DL (7-18); CALCIUM 8.6 MG/DL (8.5-10.1); CHLORIDE 104 MEQ/L (98-107); CREATININE 4.24 MG/DL (0.50-1.00); GLOMERULAR FILTRATION RATE 11 ML/MIN (>89); GLUCOSE,RANDOM 92 MG/DL (74-106); SODIUM (NA) 141 MEQ/L (136-145)
[2017-03-29 04:26] LABS: ALKALINE PHOSPHATASE 113 U/L (45-117); ALT (GPT) 21 U/L (10-53); TOTAL BILIRUBIN ADULT 0.6 MG/DL (0.2-1.0); TOTAL PROTEIN 5.8 GM/DL (6.4-8.2)
[2017-03-29] MEDS: QUEtiapine FUMARATE 25 MG TAB PO SCH (05:18)
[2017-03-29] MEDS: FAMOTIDINE 20 MG TAB NG SCH (05:18)
[2017-03-29] MEDS: METOPROLOL TARTRATE 5 MG/5 ML VIAL IV PUSH SCH ×4 (05:19→23:49)
[2017-03-29] MEDS: LACTULOSE SYRUP 20 GM/30 ML CUP OG-TUBE SCH ×4 (05:19→23:49)
[2017-03-29] MEDS: ARTIFICIAL TEARS OPTH SOLN 15 ML BTL EACH EYE SCH ×3 (05:20→19:39)
[2017-03-29] MEDS: LABETALOL HCL 100 MG/20 ML VIAL IV PUSH PRN ×2 (07:39→21:29)
[2017-03-29] MEDS: LISINOPRIL 20 MG TAB PO SCH ×2 (07:40→19:35)
[2017-03-29] MEDS: levETIRAcetam 500 MG TAB PO SCH ×2 (07:40→19:35)
[2017-03-29] MEDS: CALCIUM ACETATE 667 MG CAP PO SCH ×3 (07:40→17:25)
[2017-03-29] MEDS: CARVEDILOL 12.5 MG TAB PO SCH ×2 (07:40→19:35)
[2017-03-29] MEDS: METOCLOPRAMIDE HCL 10 MG/2 ML VIAL IV PUSH SCH ×3 (07:41→23:48)
[2017-03-29] MEDS: PANTOPRAZOLE SODIUM 40 MG VIAL IV PUSH SCH (07:42)
[2017-03-29] MEDS: PIPERACIL-TAZO 2.25 GM PREMIX 50 ML IV SCH ×2 (07:42→15:42)
[2017-03-29] MEDS: SODIUM CHLORIDE 0.9% FLUSH 10 ML FLUSH IV FLUSH SCH ×2 (07:42→19:38)
[2017-03-29] MEDS: POLYETHYLENE GLYCOL 17 GM PKG NG SCH ×2 (07:43→19:36)
[2017-03-29] MEDS: DOCUSATE SODIUM 50 MG/SENNA 8.6 MG TAB PO SCH ×2 (07:43→19:35)
[2017-03-29] MEDS: LIDOCAINE HCL 5% PATCH T-DERMAL SCH (07:43)
[2017-03-29] MEDS: CHLORHEXIDINE 0.12% (ORAL KIT) 15 ML CUP MT SCH ×2 (07:43→19:38)
[2017-03-29] MEDS: LEVOFLOXACIN 250 MG PREMIX INJ 50 ML IV SCH (08:55)
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
--- NOTE | 2017-03-29 10:53 | HHI.NSPN ---
History Chief Complaint: Unable to obtain due to patient's clinical condition. Interval History Nurses report patient is stable. Patient has a tracheostomy in place System Review Comments Unobtainable Exam Results Vital Signs Date Time Temp Pulse Resp B/P (MAP) Pulse Ox O2 Delivery O2 Flow Rate FiO2 03/29/17 10:07 40 03/29/17 08:18 99 03/29/17 06:00 81 03/29/17 04:00 100.2 14 156/78 (104) Intake and Output 03/29/17 03/29/17 03/30/17 08:00 16:00 00:00 Intake Total 833 ml 100 ml Output Total 150 ml Balance 683 ml 100 ml Physical Examination Vital signs are stable Tracheostomy in place. Remains on the respirator Appears more awake today. She opens eyes to voice and tracks. She tries to follow commands Previous CT reviewed evidence of hygroma on the right with mild mass-effect Lab, Micro, Other Results Previous CT reviewed Medical Decision Making Impression and Plan Traumatic brain injury, appears to be improving neurologically We will need repeat CT to evaluate hygroma Continued neurological observation Yoseph Jarrett MD Mar 29, 2017 10:53
[2017-03-29] MEDS: cloNIDine HCL 0.1 MG TAB PO PRN ×2 (13:07→19:35)
[2017-03-29] MEDS: QUEtiapine FUMARATE 100 MG TAB PO SCH ×2 (13:07→20:59)
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
[2017-03-29] MEDS: NIFEdipine 10 MG CAP PO SCH ×2 (17:26→21:00)
[2017-03-29] MEDS: REMOVE OLD LIDOCAINE PATCH T-DERMAL SCH (19:38)
[2017-03-29] MEDS ORDERED: REMOVE OLD CATAPRES (CLONIDINE) PATCH T-DERMAL SCH (20:00)
[2017-03-30] VITALS (20 sets, daily range): BP systolic 140–173; BP diastolic 77–87; PULSE 77–82; RESP 14–16; TEMP 98.7–99.9; O2SAT 96–99
[2017-03-30] MEDS: PIPERACIL-TAZO 2.25 GM PREMIX 50 ML IV SCH ×3 (00:32→16:31)
[2017-03-30] MEDS: LABETALOL HCL 100 MG/20 ML VIAL IV PUSH PRN ×3 (01:33→11:53)
[2017-03-30] MEDS: cloNIDine HCL 0.1 MG TAB PO PRN ×3 (02:26→21:59)
[2017-03-30] MEDS: RESP: ALBUTEROL 2.5 MG/IPRATROPIUM 0.5 MG NEB (SCH) NEB ×4 (03:09→21:25)
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
--- NOTE | 2017-03-30 04:56 | RADRPT ---
EXAM DATE/TIME: 03/30/2017 03:57 [facility] COMPARISON: CT BRAIN W/O CONTRAST, March 25, 2017, 5:01. INDICATIONS : Follow up bilateral subdural hematomas and subarachnoid hemorrhage. RADIATION DOSE: 35.44 CTDIvol (mGy) MEDICAL HISTORY : Hepatitis C. Hypertension. Renal failure, chronic. SURGICAL HISTORY : Aneurysm clip ENCOUNTER: Subsequent ACUITY: 2 weeks PAIN SCALE: Non-responsive LOCATION: cranial TECHNIQUE: Multiple contiguous axial images were obtained of the head. Using automated exposure control and adj ustment of the mA and/or kV according to patient size, radiation dose was kept as low as reasonably a chievable to obtain optimal diagnostic quality images. DICOM format image data is available electro nically for review and comparison. FINDINGS: The moderate size low density chronic appearing right subdural collection appears slightly small er and measures up to approximately 2.1 cm in greatest diameter. Smaller left subdural low density co llection is not significantly changed. The scattered areas of subdural hemorrhage have decreased with mild residual. There is mild mass effect and midline shift to the left again noted of approximately 3-4 mm. There is no new hemorrhage or mass effect. Posterior fossa and brainstem appear unremarkable. The patient is tilted in the scanning gantry. There is diffuse atrophic change. CONCLUSION: 1. Mild interval decrease in the size of the right chronic appearing subdural collection with stable midline shift to the left. 2. Stable smaller left low density subdural collection. 3. Interval decrease in subarachnoid hemorrhage with no new hemorrhage or mass effect. Marlo Myles MD on March 30, 2017 at 4:49 Board Certified Radiologist. This report was verified electronically.
[2017-03-30] MEDS: METOPROLOL TARTRATE 5 MG/5 ML VIAL IV PUSH SCH ×3 (05:07→17:02)
[2017-03-30] MEDS: HALOPERIDOL LACTATE 5 MG/ML AMP IV PUSH PRN ×3 (05:07→13:10)
[2017-03-30] MEDS: QUEtiapine FUMARATE 100 MG TAB PO SCH ×3 (05:08→21:59)
[2017-03-30] MEDS: ARTIFICIAL TEARS OPTH SOLN 15 ML BTL EACH EYE SCH ×3 (05:09→22:01)
[2017-03-30] MEDS: NIFEdipine 10 MG CAP PO SCH ×3 (05:09→22:00)
[2017-03-30] MEDS: LACTULOSE SYRUP 20 GM/30 ML CUP OG-TUBE SCH ×3 (05:09→17:02)
[2017-03-30 05:12] LABS: AUTOMATED NEUTROPHIL # 9.8 TH/MM3 (1.8-7.7); BASOPHIL # 0.1 TH/MM3 (0-0.2); BASOPHIL % 0.6 % (0.0-2.0); EOSINOPHIL # 0.2 TH/MM3 (0-0.4); HEMATOCRIT 27.2 % (35.0-46.0); HEMOGLOBIN 9.1 GM/DL (11.6-15.3); LYMPH % 5.3 % (9.0-44.0); LYMPHOCYTE # 0.6 TH/MM3 (1.0-4.8); MEAN CELL VOLUME 92.1 FL (80.0-100.0); MEAN CORPUSCULAR HEMOGLOBIN 30.8 PG (27.0-34.0); MEAN CORPUSCULAR HGB CONC 33.4 % (32.0-36.0); MEAN PLATELET VOLUME 8.7 FL (7.0-11.0); MONO % 6.4 % (0.0-8.0); MONOCYTE # 0.7 TH/MM3 (0-0.9); NEUT % 85.7 % (16.0-70.0); PLATELET COUNT 248 TH/MM3 (150-450); RED BLOOD COUNT 2.95 MIL/MM3 (4.00-5.30); RED CELL DISTRIBUTION WIDTH 18.7 % (11.6-17.2); WHITE BLOOD COUNT 11.5 TH/MM3 (4.0-11.0)
[2017-03-30 05:42] LABS: ALBUMIN 2.1 GM/DL (3.4-5.0); ALKALINE PHOSPHATASE 116 U/L (45-117); ALT (GPT) 19 U/L (10-53); AST (GOT) 25 U/L (15-37); BICARBONATE 25.6 MEQ/L (21.0-32.0); BLOOD UREA NITROGEN 55 MG/DL (7-18); CALCIUM 8.8 MG/DL (8.5-10.1); CHLORIDE 102 MEQ/L (98-107); CREATININE 5.25 MG/DL (0.50-1.00); GLOMERULAR FILTRATION RATE 8 ML/MIN (>89); GLUCOSE,RANDOM 106 MG/DL (74-106); MAGNESIUM 2.3 MG/DL (1.5-2.5); PHOSPHORUS 5.4 MG/DL (2.5-4.9); SODIUM (NA) 141 MEQ/L (136-145); TOTAL BILIRUBIN ADULT 0.7 MG/DL (0.2-1.0); TOTAL PROTEIN 5.7 GM/DL (6.4-8.2)
--- NOTE | 2017-03-30 05:54 | RADRPT ---
EXAM DATE/TIME: 03/30/2017 04:06 [facility] COMPARISON: CHEST SINGLE AP, March 29, 2017, 2:36. INDICATIONS : Short of breath. MEDICAL HISTORY : Hepatitis C. Hypertension Renal insufficiency. SURGICAL HISTORY : Aneurysm clipping ENCOUNTER: Subsequent ACUITY: 1 week PAIN SCORE: 0/10 LOCATION: Bilateral chest FINDINGS: A single AP semierect view of the chest was obtained and demonstrates interval removal of the previou sly noted right subclavian central venous line. The tracheostomy tube remains in place. There has bee n an interval decrease in the bibasilar airspace disease with moderate cardiomegaly again noted. Over lying electrocardiogram leads and oxygen tubing is noted. The left costophrenic angle is cut off the exam. There is a small right effusion. CONCLUSION: 1. Bibasilar airspace disease without significant change. 2. Cardiomegaly and right effusion. The left costophrenic angle is cut off the exam. 3. Interval removal right subclavian central venous line. Marlo Myles MD on March 30, 2017 at 5:50 Board Certified Radiologist. This report was verified electronically.
[2017-03-30] MEDS: CHLORHEXIDINE 0.12% (ORAL KIT) 15 ML CUP MT SCH ×2 (07:44→20:00)
[2017-03-30] MEDS ORDERED: POTASSIUM CHLORIDE 20 MEQ PWD PACKET PO ONE (07:45)
[2017-03-30] MEDS: hydrALAZINE HCL 20 MG/ML VIAL IV PUSH PRN ×2 (07:58→13:10)
[2017-03-30] MEDS: CALCIUM ACETATE 667 MG CAP PO SCH ×3 (08:01→17:02)
[2017-03-30] MEDS: POLYETHYLENE GLYCOL 17 GM PKG NG SCH ×2 (08:01→20:19)
[2017-03-30] MEDS: LIDOCAINE HCL 5% PATCH T-DERMAL SCH (08:01)
[2017-03-30] MEDS: CARVEDILOL 12.5 MG TAB PO SCH ×2 (08:01→20:03)
[2017-03-30] MEDS: SODIUM CHLORIDE 0.9% FLUSH 10 ML FLUSH IV FLUSH SCH ×2 (08:02→20:19)
[2017-03-30] MEDS: PANTOPRAZOLE SODIUM 40 MG VIAL IV PUSH SCH (08:02)
[2017-03-30] MEDS: METOCLOPRAMIDE HCL 10 MG/2 ML VIAL IV PUSH SCH (08:02)
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
[2017-03-30] MEDS: DOCUSATE SODIUM 50 MG/SENNA 8.6 MG TAB PO SCH ×2 (08:03→20:19)
[2017-03-30] MEDS: LISINOPRIL 20 MG TAB PO SCH ×2 (08:03→20:03)
[2017-03-30] MEDS: levETIRAcetam 500 MG TAB PO SCH (08:03)
[2017-03-30] MEDS: VALPROIC ACID SYRUP 250 MG/5 ML UDC PO SCH ×2 (09:21→20:02)
--- NOTE | 2017-03-30 10:10 | HHI.NSPN ---
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 administered on 03/30/17at 05:08; Start 03/21/17 at 21:15; Stop 03/30/17 at 09:05 ; Status DC Nicardipine HCl 50 mg/Sodium Chloride 250 ml @ 25 mls/hr TITRATE PRN IV Blood pressure management; Start 03/21/17 at 23:45; Stop 03/21/17 at 23:58; Status DC Nicardipine HCl 50 mg/Sodium Chloride 250 ml @ 25 mls/hr TITRATE PRN IV Blood pressure management Last administered on 03/23/17at 07:16; Start 03/21/17 at 23: 45; Stop 03/23/17 at 08:17; Status DC Heparin Sodium (Porcine) (Heparin Inj) 5,000 units Q12HR SQ Last administered on 03/26/17at 20:03; Start 03/22/17 at 21:00; Stop 03/29/17 at 10:36; Status DC Albuterol/ Ipratropium (Duoneb Neb) 1 ampule Q6HR NEB NEB Last administered on 03/26/17at 03:40; Start 03/22/17 at 16:00; Stop 03/26/17 at 07:07; Status DC Bisacodyl (Dulcolax Supp) 10 mg ONCE ONCE RECTAL Last administered on at 16:18; Start 03/22/17 at 15:00; Stop 03/22/17 at 15:05; Status DC Methylnaltrexone [place] (Relistor Inj) 12 mg ONCE ONCE SQ Last administered on 03/22/17at 16:18; Start 03/22/17 at 15:00; Stop 03/22/17 at 15:05; Status DC Labetalol HCl (Trandate Inj) 10 mg Q4HR PRN IV PUSH SBP >160 Last administered on 03/24/17at 15:14; Start 03/22/17 at 19:45; Stop 03/24/17 at 18:30; Status DC Clonidine (Catapres-Tts 0.2 Mg Patch.7d) 1 patch Q7D T-DERMAL Last administered on 03/22/17at 22:20; Start 03/22/17 at 20:00; Stop 03/25/17 at 09:27 ; Status DC Miscellaneous Information 1 Q7D T-DERMAL ; Start 03/29/17 at 20:00; Stop at 20:00; Status DC Clonidine (Catapres) 0.1 mg Q6H PRN PO for BP > 160 systolic Last administered on 03/25/17at 21:06; Start 03/23/17 at 03:15; Stop 03/26/17 at 07:09 ; Status DC Clevidipine 50 ml @ 2 mls/hr TITRATE PRN IV Blood Pressure Management Last administered on 03/25/17at 07:13; Start 03/23/17 at 09:00; Stop 03/25/17 at 09:27 ; Status DC Propranolol HCl (Inderal) 20 mg Q8HR PO ; Start 03/23/17 at 14:00; Stop at 14:00; Status DC Sodium Chloride 500 ml @ 30 mls/hr CONTINUOUS IV Last administered on at 12:52; Start 03/23/17 at 09:00; Stop 03/25/17 at 16:57; Status DC Metoclopramide HCl (Reglan Inj) 5 mg Q8H IV PUSH Last administered on at 23:48; Start 03/23/17 at 09:00; Stop 03/30/17 at 12:07; Status DC Metoprolol Tartrate (Lopressor Inj) 5 mg Q6H IV PUSH Last administered on at 10:00; Start 03/23/17 at 10:00; Stop 03/24/17 at 11:16; Status DC Diatrizoate Meglum/ Diatrizoate Sod ( Gastroalexx Liq) 18 ml ONCE ONCE PO Last administered on 03/23/17at 10:59; Start 03/23/17 at 09:30; Stop 03/23/17 at 09:31; Status DC Hydromorphone HCl (Dilaudid Pf Inj) 0.75 mg Q4HR IV PUSH ; Start 03/23/17 at 12: 00; Status UNV Lorazepam (Ativan Inj) 1 mg Q4HR IV PUSH ; Start 03/23/17 at 12:00; Status UNV Carvedilol (Coreg) 12.5 mg Q12HR PO ; Start 03/23/17 at 21:00; Stop 03/23/17 at 21:00; Status DC Carvedilol (Coreg) 12.5 mg Q12HR PO Last administered on 03/24/17at 09:00; Start 03/23/17 at 18:00; Stop 03/24/17 at 11:43; Status DC Iohexol (Omnipaque 350 Inj) 71 ml STK-MED ONCE IVCONTRAST Last administered on 03/23/17at 18:20; Start 03/23/17 at 18:20; Stop 03/23/17 at 18:21; Status DC Metoprolol Tartrate (Lopressor Inj) 5 mg Q6H IV PUSH Last administered on at 05:02; Start 03/24/17 at 12:00; Stop 04/02/17 at 10:28; Status DC Oxycodone HCl (Roxicodone) 5 mg Q4HR PO Last administered on 04/03/17at 12:00; Start 03/24/17 at 12:00 Carvedilol (Coreg) 25 mg Q12HR PO Last administered on 04/03/17at 09:00; Start 03/24/17 at 21:00 Methylnaltrexone [place] (Relistor Inj) 12 mg ONCE ONCE SQ Last administered on 03/24/17at 13:54; Start 03/24/17 at 11:45; Stop 03/24/17 at 12:36; Status DC Hydralazine HCl (Apresoline Inj) 20 mg Q4H PRN IV PUSH SBP>160, DBP>90 Last administered on 04/03/17at 04:32; Start 03/25/17 at 03:30 Labetalol HCl (Trandate Inj) 10 mg Q4H PRN IV PUSH SBP>160, DBP>90 Last administered on 03/25/17at 04:05; Start 03/25/17 at 03:30; Stop 03/25/17 at 15:35 ; Status DC Lisinopril (Prinivil) 10 mg Q12HR PO Last administered on 03/25/17at 12:37; Start 03/25/17 at 09:30; Stop 03/25/17 at 15:36; Status DC Clonidine (Catapres-Tts 0.3 Mg Patch.7d) 1 patch Q7D T-DERMAL Last administered on 04/01/17at 11:24; Start 03/25/17 at 12:00 Famotidine (Pepcid) 10 mg Q12H NG Last administered on 03/29/17at 05:18; Start 03/25/17 at 16:00; Stop 03/29/17 at 13:54; Status DC Levetriacetam (Keppra) 500 mg Q12HR PO Last administered on 03/30/17at 08:03; Start 03/25/17 at 21:00; Stop 03/30/17 at 12:07; Status DC Miscellaneous Information 1 Q7D T-DERMAL Last administered on 04/01/17at 12:00; Start 04/01/17 at 12:00 Levofloxacin/ Dextrose 50 ml @ 50 mls/hr Q24H IV Last administered on at 15:49; Start 03/25/17 at 15:00; Stop 03/26/17 at 10:30; Status DC Labetalol HCl (Trandate Inj) 10 mg Q1HR PRN IV PUSH SBP>160, DBP>90 Last administered on 04/02/17at 04:02; Start 03/25/17 at 15:45; Stop 04/02/17 at 10:29 ; Status DC Lisinopril (Prinivil) 20 mg Q12HR PO Last administered on 03/25/17at 21:07; Start 03/25/17 at 21:00; Stop 03/26/17 at 07:09; Status DC Nicardipine HCl 25 mg/Sodium Chloride 250 ml @ 50 mls/hr TITRATE PRN IV Blood Pressure Management Last administered on 03/27/17at 23:34; Start 03/25/17 at 17: 15; Stop 04/02/17 at 10:29; Status DC Albuterol/ Ipratropium (Duoneb Neb) 1 ampule Q6HR NEB NEB Last administered on 03/29/17at 08:17; Start 03/26/17 at 10:00; Stop 03/29/17 at 10:35; Status DC Clonidine (Catapres) 0.1 mg Q4HR PRN PO for BP > 160 systolic Last administered on 04/02/17at 20:25; Start 03/26/17 at 07:15 Lisinopril (Prinivil) 40 mg Q12HR PO Last administered on 04/01/17at 09:02; Start 03/26/17 at 09:00; Stop 04/01/17 at 09:22; Status DC Levofloxacin/ Dextrose 50 ml @ 50 mls/hr Q24H IV ; Start 03/26/17 at 10:30; Stop 03/26/17 at 10:31; Status DC Levofloxacin/ Dextrose 50 ml @ 50 mls/hr Q24H IV Last administered on at 08:09; Start 03/27/17 at 09:00; Stop 03/28/17 at 07:31; Status DC Vecuronium [place] (Norcuron 10 Mg Inj) 10 mg [employer] HE[employer]IST IV PUSH ; Start 03/27/17 at 11:00; Stop 03/29/17 at 10:59; Status DC Fentanyl Citrate 250 ml @ 5 mls/hr TITRATE PRN IV SEDATION Last administered on 03/28/17at 10:00; Start 03/26/17 at 15:30; Stop 03/31/17 at 09:12; Status DC Quetiapine Fumarate (SEROquel) 50 mg Q8HR PO Last administered on 03/29/17at 05: 18; Start 03/27/17 at 10:00; Stop 03/29/17 at 09:54; Status DC Haloperidol Lactate (Haldol Inj) 2 mg Q4H PRN IV PUSH AGITATION Last administered on 03/30/17at 13:10; Start 03/27/17 at 09:15; Stop 04/02/17 at 10:29 ; Status DC Midazolam HCl (Versed Inj) 5 mg STK-MED ONCE .ROUTE ; Start 03/27/17 at 10:43; Stop 03/27/17 at 10:44; Status DC Rocuronium [place] (Zemuron Inj) 100 mg STK-MED ONCE .ROUTE ; Start 03/27/17 at 10:43; Stop 03/27/17 at 10:44; Status DC Midazolam HCl (Versed Inj) 5 mg NOW ONCE IV PUSH Last administered on at 11:51; Start 03/27/17 at 12:30; Stop 03/27/17 at 12:31; Status DC Rocuronium [place] (Zemuron Inj) 100 mg NOW ONCE IV PUSH Last administered on 03/27/17at 11:52; Start 03/27/17 at 12:30; Stop 03/27/17 at 12:31; Status DC Amlodipine Besylate (Norvasc) 5 mg ONCE ONCE PEG Last administered on at 15:36; Start 03/27/17 at 14:45; Stop 03/27/17 at 14:46; Status DC Desmopressin Acetate (Ddavp Inj) 1 mcg ONCE ONCE IV PUSH Last administered on 03/28/17at 07:04; Start 03/28/17 at 06:30; Stop 03/28/17 at 06:31; Status DC Levofloxacin/ Dextrose 50 ml @ 50 mls/hr Q48H IV Last administered on at 09:07; Start 03/29/17 at 09:00; Stop 04/02/17 at 11:44; Status DC Lidocaine/ Epinephrine (Xylocaine-Epi 1%-1:100,000 Inj) 30 ml STK-MED ONCE .ROUTE Last administered on 03/28/17at 13:39; Start 03/28/17 at 13:39; Stop at 13:40; Status DC Pantoprazole Sodium (Protonix Inj) 40 mg DAILY IV PUSH Last administered on at 09:12; Start 03/28/17 at 13:45; Stop 03/31/17 at 16:08; Status DC Quetiapine Fumarate (SEROquel) 100 mg Q8HR PO Last administered on 04/03/17at 14 :00; Start 03/29/17 at 14:00 Albuterol/ Ipratropium (Duoneb Neb) 1 ampule Q6HR NEB NEB Last administered on 04/02/17at 15:16; Start 03/29/17 at 16:00; Stop 04/02/17 at 15:59; Status DC Heparin Sodium (Porcine) (Heparin Inj) 5,000 units Q12HR SQ Last administered on 04/03/17at 09:00; Start 03/30/17 at 21:00; Status Future hold Nifedipine (Procardia) 10 mg Q8HR PO Last administered on 03/29/17at 21:00; Start 03/29/17 at 16:15; Stop 03/30/17 at 03:59; Status DC Nifedipine (Procardia) 20 mg Q8HR PO Last administered on 04/02/17at 13:25; Start 03/30/17 at 06:00; Stop 04/02/17 at 16:30; Status DC Potassium Chloride (KCl Powder) 10 meq ONCE ONCE PO Last administered on at 08:06; Start 03/30/17 at 07:45; Stop 03/30/17 at 07:47; Status DC Valproic Acid (Depakene Liq) 250 mg BID PO Last administered on 04/03/17at 09:00 ; Start 03/30/17 at 10:00 Sodium Chloride 1,000 ml @ 100 mls/hr Q10H IV Last administered on 03/31/17at 00:07; Start 03/30/17 at 14:58; Stop 03/31/17 at 09:17; Status DC Cefazolin Sodium/ Dextrose 50 ml @ 150 mls/hr ONCE ONCE IV ; Start 03/30/17 at 15:00; Stop 03/30/17 at 15:19; Status DC Chlorhexidine Gluconate (Hibiclens 4% Top Soln) 1 applic HS TOP Last administered on 03/30/17at 21:00; Start 03/30/17 at 21:00; Stop 03/31/17 at 21:01 ; Status DC Cefazolin Sodium/ Dextrose 50 ml @ 150 mls/hr ONCE ONCE IV Last administered on 03/31/17at 15:00; Start 03/31/17 at 07:00; Stop 03/31/17 at 07:19; Status DC Lidocaine/ Epinephrine (Xylocaine-Epi 1%-1:100,000 Inj) 30 ml STK-MED ONCE .ROUTE Last administered on 03/31/17at 15:00; Start 03/31/17 at 07:41; Stop at 07:42; Status DC Thrombin (Thrombin Top Soln) 10,000 units STK-MED ONCE .ROUTE Last administered on 03/31/17at 15:00; Start 03/31/17 at 07:41; Stop 03/31/17 at 07:42 ; Status DC Gelatin (Gelfoam 100 Top) 1 foam STK-MED ONCE .ROUTE Last administered on at 15:00; Start 03/31/17 at 07:41; Stop 03/31/17 at 07:42; Status DC Bacitracin (Baciguent Oint) 15 applic STK-MED ONCE .ROUTE Last administered on 03/31/17at 15:00; Start 03/31/17 at 07:41; Stop 03/31/17 at 07:42; Status DC Gentamicin Sulfate (Gentamicin Inj) 240 mg STK-MED ONCE .ROUTE Last administered on 03/31/17at 15:00; Start 03/31/17 at 07:41; Stop 03/31/17 at 07:42 ; Status DC Propofol (Diprivan 200 Mg/20 ml Inj) 200 mg STK-MED ONCE IV ; Start 03/27/17 at 12:00; Stop 03/31/17 at 08:21; Status DC Furosemide (Lasix Inj) 40 mg STK-MED ONCE .ROUTE ; Start 03/31/17 at 13:15; Stop 03/31/17 at 13:16; Status DC Levetriacetam (Keppra Inj) 1,000 mg STK-MED ONCE IV ; Start 03/31/17 at 13:15; Stop 03/31/17 at 13:16; Status DC Cefazolin Sodium/ Dextrose 50 ml @ 100 mls/hr Q8H IV Last administered on 04/01at 14:59; Start 03/31/17 at 22:00; Stop 04/01/17 at 14:29; Status DC Levetriacetam 500 mg/Sodium Chloride 105 ml @ 400 mls/hr Q12H IV Last administered on 04/03/17at 04:23; Start 03/31/17 at 17:00 Bisacodyl (Dulcolax Supp) 10 mg DAILY PRN RECTAL CONSTIPATION; Start 03/31/17 at 15:00 Docusate Sodium (Colace) 100 mg BID PO Last administered on 04/02/17at 20:25; Start 03/31/17 at 15:00 Pantoprazole Sodium (Protonix) 40 mg DAILY PO ; Start 04/01/17 at 09:00; Stop at 10:29; Status DC Pantoprazole Sodium (Protonix Inj) 40 mg DAILY IVP Last administered on at 09:03; Start 04/01/17 at 09:00; Stop 04/02/17 at 10:29; Status DC Ondansetron HCl (Zofran Inj) 4 mg Q6H PRN IV PUSH NAUSEA OR VOMITING; Start at 15:00 Calcium Gluconate (Calcium Gluconate Inj) 1 gm UNSCH PRN IV SEE LABEL COMMENTS ; Start 03/31/17 at 15:00 Potassium Chloride 100 ml @ 50 mls/hr UNSCH PRN IV POTASSIUM LESS THAN 4; Start 03/31/17 at 15:00 Magnesium Sulfate 4 gm/Sodium Chloride 108 ml @ 108 mls/hr UNSCH PRN IV MAGNESIUM LESS THAN 2; Start 03/31/17 at 15:00 Acetaminophen/ Hydrocodone Bitart ([place] 10-325 Mg) 1 tab Q4H PRN PO PAIN SCALE 1 TO 5; Start 03/31/17 at 15:00 Acetaminophen/ Hydrocodone Bitart ([place] 10-325 Mg) 2 tab Q4H PRN PO PAIN SCALE 6 TO 10 Last administered on 04/02/17at 18:13; Start 03/31/17 at 15:00 Morphine Sulfate (Morphine Inj) 2 mg Q2H PRN IV PUSH PAIN SCALE 1 TO 6 Last administered on 04/01/17at 06:52; Start 03/31/17 at 15:00; Stop 04/02/17 at 10:29 ; Status DC Morphine Sulfate (Morphine Inj) 4 mg Q2H PRN IV PUSH PAIN SCALE 7 TO 10 Last administered on 04/01/17at 11:24; Start 03/31/17 at 15:00; Stop 04/02/17 at 10:29 ; Status DC Acetaminophen (Tylenol) 650 mg Q4H PRN PO TEMPERATURE > 101.5 F; Start at 15:00 Midazolam HCl (Versed Inj) 2 mg STK-MED ONCE .ROUTE ; Start 03/31/17 at 16:08; Stop 03/31/17 at 16:09; Status DC Fentanyl Citrate (fentaNYL INJ) 200 mcg STK-MED ONCE .ROUTE ; Start 03/31/17 at 16:08; Stop 03/31/17 at 16:09; Status DC Nitroglycerin (Nitro-Dur 0.4 Mg Patch.24 Hr) 1 patch DAILY T-DERMAL Last administered on 04/03/17at 09:00; Start 04/01/17 at 09:30 Miscellaneous Information 1 DAILY T-DERMAL Last administered on 04/03/17at 09:00 ; Start 04/02/17 at 09:00 Rocuronium [place] (Zemuron Inj) 50 mg STK-MED ONCE IV PUSH ; Start 03/31/17 at 12:00; Stop 04/01/17 at 14:13; Status DC Dexamethasone Sodium Phosphate (Decadron Inj) 4 mg STK-MED ONCE IV ; Start 03/31 at 12:00; Stop 04/01/17 at 14:13; Status DC Ondansetron HCl (Zofran Inj) 4 mg STK-MED ONCE IV ; Start 03/31/17 at 12:00; Stop 04/01/17 at 14:13; Status DC Propofol (Diprivan 200 Mg/20 ml Inj) 200 mg STK-MED ONCE IV ; Start 03/31/17 at 12:00; Stop 04/01/17 at 14:13; Status DC Labetalol HCl (Trandate Inj) 100 mg STK-MED ONCE IV ; Start 03/31/17 at 12:00; Stop 04/01/17 at 14:13; Status DC Levofloxacin (Levaquin) 250 mg Q48H PO Last administered on 04/02/17at 13:22; Start 04/02/17 at 12:00 Nifedipine (Procardia) 20 mg Q8HR PO Last administered on 04/03/17at 14:00; Start 04/02/17 at 22:00 (Saulo King MD) Medical Decision Making MDM Remarks 56-year-old female traumatic brain injury, diffuse subarachnoid hemorrhage, left subdural hematoma, status post placement of intracranial pressure monitor to 03/15/17, dc'ed 03/20/17 Follow-up CT brain yesterday afternoon shows increased size of right extra- axial fluid collection with mild mass-effect, stable serial f/u CT Heads 03/16 and 03/17 increased right subdural hygroma with mass effect and now 3.9 mm midline shift on CT 03/25/17 History of remote aneurysm clipping Renal failure on hemodialysis (Libia Jeffery) Plan Plan Remarks f/u CT Brain reviewed today by Dr. King, will require guilherme hole for evac of hygroma cont current care Per Dr. King - Patient scheduled for guilherme hole tomorrow afternoon, consents in chart. dw nursing, patient to receive dialysis in the morning. (Libia Jeffery) Attending Statement I reviewed her CT. Increasing hygroma with mass effect and midline shift Recommend guilherme hole with evacuation of subdural hygroma. discussed with her daughter the details including the [id number] details of the surgical procedure, its indications, alternatives, risks, and potential complications. Risks and potential complications include, but are not limited to, infection, blood loss, CSF leak, partial or complete loss of sight in one or both eyes, paresis, paralysis, permanent pain or difficulty swallowing, loss of bowel or bladder function, complications from anesthesia, blood clot, stroke, myocardial infarction, or even . The exam, history, and the medical decision-making described in the above note were completed with the assistance of the mid-level provider. I reviewed and agree with the findings presented. I attest that I had a [id number] encounter with the patient on the same day, and personally performed and documented my assessment and findings in the medical record. (Saulo King MD) Libia Jeffery Mar 30, 2017 10:09 Saulo King MD Apr 03, 2017 15:40
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
[2017-03-30] MEDS ORDERED: ceFAZolin 2 GM PREMIX 50 ML IV ONE (15:00)
[2017-03-30] MEDS: SODIUM CHLOR 0.9% 1000 ML INJ 1,000 ML IV SCH (16:01)
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
[2017-03-30] MEDS: HEPARIN SODIUM - SQ 10,000 UNITS/ML VIAL SQ SCH (20:02)
[2017-03-30] MEDS: REMOVE OLD LIDOCAINE PATCH T-DERMAL SCH (20:19)
[2017-03-30] MEDS: CHLORHEXIDINE GLUCONATE 4% SOLN 120 ML BTL TOP SCH (21:00)
[2017-03-31] VITALS (16 sets, daily range): BP systolic 155–184; BP diastolic 86–103; PULSE 66–92; RESP 14–18; TEMP 97.8–98.8; O2SAT 96–100
[2017-03-31] MEDS: PIPERACIL-TAZO 2.25 GM PREMIX 50 ML IV SCH ×2 (00:03→09:08)
[2017-03-31] MEDS: METOPROLOL TARTRATE 5 MG/5 ML VIAL IV PUSH SCH ×4 (00:04→17:45)
[2017-03-31] MEDS: SODIUM CHLOR 0.9% 1000 ML INJ 1,000 ML IV SCH (00:07)
[2017-03-31] MEDS: RESP: ALBUTEROL 2.5 MG/IPRATROPIUM 0.5 MG NEB (SCH) NEB ×4 (03:07→21:09)
[2017-03-31 05:30] LABS: BASOPHIL # 0.1 TH/MM3 (0-0.2); BASOPHIL % 0.9 % (0.0-2.0); EOSINOPHIL # 0.2 TH/MM3 (0-0.4); EOSINOPHIL % 2.5 % (0.0-4.0); HEMATOCRIT 29.1 % (35.0-46.0); HEMOGLOBIN 9.9 GM/DL (11.6-15.3); LYMPH % 9.4 % (9.0-44.0); LYMPHOCYTE # 0.8 TH/MM3 (1.0-4.8); MEAN CELL VOLUME 93.3 FL (80.0-100.0); MEAN CORPUSCULAR HEMOGLOBIN 31.9 PG (27.0-34.0); MEAN CORPUSCULAR HGB CONC 34.1 % (32.0-36.0); MEAN PLATELET VOLUME 8.6 FL (7.0-11.0); MONO % 9.1 % (0.0-8.0); MONOCYTE # 0.8 TH/MM3 (0-0.9); NEUT % 78.1 % (16.0-70.0); PLATELET COUNT 281 TH/MM3 (150-450); RED BLOOD COUNT 3.12 MIL/MM3 (4.00-5.30); RED CELL DISTRIBUTION WIDTH 19.5 % (11.6-17.2)
--- NOTE | 2017-03-31 05:32 | RADRPT ---
EXAM DATE/TIME: 03/31/2017 04:08 [place] COMPARISON: CHEST SINGLE AP, March 30, 2017, 4:06. INDICATIONS : Short of breath. MEDICAL HISTORY : Hepatitis C. Hypertension Renal insufficiency. SURGICAL HISTORY : Aneurysm clipping. ENCOUNTER: Subsequent ACUITY: 1 week PAIN SCORE: Non-responsive. LOCATION: Bilateral chest FINDINGS: A single AP portable semierect view of the chest was obtained and again demonstrates the tracheostomy tube in place. The heart remains markedly enlarged with globular configuration. Bilateral perihilar and bibasilar opacities are noted which are increased from the prior study. Both costophrenic angles are blunted. They're overlying electrocardiogram leads. CONCLUSION: Findings characteristic of congestive heart failure which appear mildly increased from the prior stud y. Marlo Myles MD on March 31, 2017 at 5:29 Board Certified Radiologist. This report was verified electronically.
[2017-03-31] MEDS: QUEtiapine FUMARATE 100 MG TAB PO SCH ×3 (05:35→21:26)
[2017-03-31] MEDS: NIFEdipine 10 MG CAP PO SCH ×3 (05:35→21:26)
[2017-03-31] MEDS: LACTULOSE SYRUP 20 GM/30 ML CUP OG-TUBE SCH ×5 (05:35→19:42)
[2017-03-31] MEDS: ARTIFICIAL TEARS OPTH SOLN 15 ML BTL EACH EYE SCH ×3 (05:36→21:26)
[2017-03-31 05:53] LABS: AST (GOT) 23 U/L (15-37); BICARBONATE 24.7 MEQ/L (21.0-32.0); BLOOD UREA NITROGEN 59 MG/DL (7-18); CALCIUM 8.8 MG/DL (8.5-10.1); CHLORIDE 102 MEQ/L (98-107); CREATININE 5.81 MG/DL (0.50-1.00); GLOMERULAR FILTRATION RATE 8 ML/MIN (>89); GLUCOSE,RANDOM 90 MG/DL (74-106); SODIUM (NA) 138 MEQ/L (136-145)
[2017-03-31 05:57] LABS: ALKALINE PHOSPHATASE 107 U/L (45-117); ALT (GPT) 19 U/L (10-53); TOTAL BILIRUBIN ADULT 0.7 MG/DL (0.2-1.0); TOTAL PROTEIN 5.8 GM/DL (6.4-8.2)
[2017-03-31] MEDS ORDERED: ceFAZolin 2 GM PREMIX 50 ML IV ONE (07:00)
[2017-03-31] MEDS ORDERED: THROMBIN (TOPICAL) 5,000 UNIT VIAL ONE (07:41)
[2017-03-31] MEDS ORDERED: GENTAMICIN SULFATE 80 MG/2 ML VIAL ONE (07:41)
[2017-03-31] MEDS ORDERED: BACITRACIN TOP OINT 15 GM TUBE ONE (07:41)
[2017-03-31] MEDS ORDERED: GELFOAM SIZE 100 ONE (07:41)
[2017-03-31] MEDS ORDERED: LIDOCAINE 1%/EPINEPHrine 1:100,000 SOLN 30 ML VIAL ONE (07:41)
[2017-03-31] MEDS: CHLORHEXIDINE 0.12% (ORAL KIT) 15 ML CUP MT SCH ×2 (08:00→19:59)
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
[2017-03-31] MEDS: CARVEDILOL 12.5 MG TAB PO SCH ×4 (09:00→19:59)
[2017-03-31] MEDS: DOCUSATE SODIUM 50 MG/SENNA 8.6 MG TAB PO SCH ×2 (09:00→19:40)
[2017-03-31] MEDS: POLYETHYLENE GLYCOL 17 GM PKG NG SCH ×2 (09:00→19:40)
[2017-03-31] MEDS: LISINOPRIL 20 MG TAB PO SCH ×3 (09:00→19:58)
[2017-03-31] MEDS: LEVOFLOXACIN 250 MG PREMIX INJ 50 ML IV SCH (09:07)
[2017-03-31] MEDS: LIDOCAINE HCL 5% PATCH T-DERMAL SCH (09:08)
[2017-03-31] MEDS: VALPROIC ACID SYRUP 250 MG/5 ML UDC PO SCH ×2 (09:11→19:58)
[2017-03-31] MEDS: CALCIUM ACETATE 667 MG CAP PO SCH ×3 (09:11→17:45)
[2017-03-31] MEDS: SODIUM CHLORIDE 0.9% FLUSH 10 ML FLUSH IV FLUSH SCH ×2 (09:12→19:58)
[2017-03-31] MEDS: PANTOPRAZOLE SODIUM 40 MG VIAL IV PUSH SCH (09:12)
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
[2017-03-31] MEDS ORDERED: DEXAMETHASONE SOD PHOS 4 MG/ML VIAL IV ONE (12:00)
[2017-03-31] MEDS ORDERED: LABETALOL HCL 100 MG/20 ML VIAL IV ONE (12:00)
[2017-03-31] MEDS ORDERED: ONDANSETRON HCL 4 MG/2 ML VIAL IV ONE (12:00)
[2017-03-31] MEDS ORDERED: ROCURONIUM INJ 50 MG/5 ML SYRINGE IV PUSH ONE (12:00)
[2017-03-31] MEDS ORDERED: PROPOFOL 200 MG/20 ML AMP IV ONE (12:00)
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
[2017-03-31] MEDS ORDERED: FUROSEMIDE 40 MG/4 ML VIAL ONE (13:15)
[2017-03-31] MEDS ORDERED: levETIRAcetam 500 MG/5 ML VIAL IV ONE (13:15)
[2017-03-31] MEDS ORDERED: ACETAMINOPHEN/HYDROcodone 325 MG/10 MG TAB PO PRN (15:00)
[2017-03-31] MEDS ORDERED: ACETAMINOPHEN 325 MG TAB PO PRN (15:00)
[2017-03-31] MEDS ORDERED: MAGNESIUM SULFATE INJ 4 GM in SODIUM CHLORIDE 0.9% INJ 100 ML IV PRN (15:00)
[2017-03-31] MEDS ORDERED: CALCIUM GLUCONATE 10% 1 GM/10 ML VIAL IV PRN (15:00)
[2017-03-31] MEDS: DOCUSATE SODIUM 100 MG CAP PO SCH ×2 (15:00→19:40)
[2017-03-31] MEDS ORDERED: POTASSIUM CHLOR 20 MEQ PREMIX 100 ML IV PRN (15:00)
[2017-03-31] MEDS ORDERED: ONDANSETRON HCL 4 MG/2 ML VIAL IV PUSH PRN (15:00)
[2017-03-31] MEDS ORDERED: BISACODYL 10 MG SUPP RECTAL PRN (15:00)
--- NOTE | 2017-03-31 15:11 | HHI.HCPN ---
Ms. Painting currently in OR for surgery. No family in room. Attempted to contact daughter Rocio, unable to reach and unable to leave a message. Spoke with daughter Brandyn. She inquires about mom's surgery status. Denies any other questions or concerns. Briefly discussed progress they are seeing. Reports Ms. Painting was smiling and making family laugh today. They are hopeful she will continue to make progress and they continue to pray for that. Offered emotional support. Spoke with RN, also reports Ms. Painting is more responsive and interactive today. Confirmed family has palliative care contact information. Brandyn very appreciative of ongoing support and contact today. Palliative care will continue to follow throughout hospitalization. Important Contacts: Daughter: Rocio Painting [phone] Daughter: Brandyn Honeycutt [phone] Elaine Sesay, PROJECTOR OPERATOR Mar 31, 2017 15:11
[2017-03-31] MEDS ORDERED: MIDAZOLAM HCL 2 MG/2 ML VIAL ONE (16:08)
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
[2017-03-31] MEDS: levETIRAcetam INJ 500 MG in SODIUM CHLORIDE 0.9% INJ 100 ML IV SCH (16:31)
[2017-03-31] MEDS: hydrALAZINE HCL 20 MG/ML VIAL IV PUSH PRN (16:31)
[2017-03-31] MEDS: MORPHINE SULFATE 4 MG/ML INJ IV PUSH PRN ×2 (16:31→21:25)
[2017-03-31] MEDS: LABETALOL HCL 100 MG/20 ML VIAL IV PUSH PRN ×2 (16:56→19:11)
[2017-03-31] MEDS: cloNIDine HCL 0.1 MG TAB PO PRN (19:11)
[2017-03-31] MEDS: REMOVE OLD LIDOCAINE PATCH T-DERMAL SCH (21:00)
[2017-03-31] MEDS: CHLORHEXIDINE GLUCONATE 4% SOLN 120 ML BTL TOP SCH (21:00)
[2017-03-31] MEDS: HEPARIN SODIUM - SQ 10,000 UNITS/ML VIAL SQ SCH (21:26)
[2017-03-31] MEDS: ceFAZolin 2 GM PREMIX 50 ML IV SCH (21:26)
[2017-04-01] VITALS (19 sets, daily range): BP systolic 114–174; BP diastolic 58–92; PULSE 74–98; RESP 14–21; TEMP 97.5–99; O2SAT 97–99
[2017-04-01] MEDS: METOPROLOL TARTRATE 5 MG/5 ML VIAL IV PUSH SCH ×5 (00:27→23:15)
[2017-04-01] MEDS: MORPHINE SULFATE 4 MG/ML INJ IV PUSH PRN ×5 (01:03→11:24)
[2017-04-01] MEDS: hydrALAZINE HCL 20 MG/ML VIAL IV PUSH PRN ×3 (02:37→14:58)
[2017-04-01] MEDS: LACTULOSE SYRUP 20 GM/30 ML CUP OG-TUBE SCH ×4 (02:49→19:48)
[2017-04-01] MEDS: RESP: ALBUTEROL 2.5 MG/IPRATROPIUM 0.5 MG NEB (SCH) NEB ×4 (03:16→20:39)
[2017-04-01] MEDS: levETIRAcetam INJ 500 MG in SODIUM CHLORIDE 0.9% INJ 100 ML IV SCH ×2 (04:20→17:37)
[2017-04-01 04:49] LABS: AUTOMATED NEUTROPHIL # 9.1 TH/MM3 (1.8-7.7); BASOPHIL # 0.1 TH/MM3 (0-0.2); BASOPHIL % 0.5 % (0.0-2.0); EOSINOPHIL % 0.3 % (0.0-4.0); HEMATOCRIT 33.8 % (35.0-46.0); HEMOGLOBIN 11.4 GM/DL (11.6-15.3); LYMPHOCYTE # 0.9 TH/MM3 (1.0-4.8); MEAN CELL VOLUME 93.5 FL (80.0-100.0); MEAN CORPUSCULAR HEMOGLOBIN 31.6 PG (27.0-34.0); MEAN CORPUSCULAR HGB CONC 33.8 % (32.0-36.0); MONO % 9.3 % (0.0-8.0); NEUT % 81.9 % (16.0-70.0); PLATELET COUNT 425 TH/MM3 (150-450); RED BLOOD COUNT 3.61 MIL/MM3 (4.00-5.30); RED CELL DISTRIBUTION WIDTH 21.1 % (11.6-17.2); WHITE BLOOD COUNT 11.2 TH/MM3 (4.0-11.0)
[2017-04-01 05:16] LABS: ALBUMIN 2.1 GM/DL (3.4-5.0); AST (GOT) 24 U/L (15-37); BICARBONATE 25.1 MEQ/L (21.0-32.0); BLOOD UREA NITROGEN 49 MG/DL (7-18); CALCIUM 9.2 MG/DL (8.5-10.1); CHLORIDE 100 MEQ/L (98-107); CREATININE 4.93 MG/DL (0.50-1.00); GLOMERULAR FILTRATION RATE 9 ML/MIN (>89); GLUCOSE,RANDOM 88 MG/DL (74-106); SODIUM (NA) 137 MEQ/L (136-145)
[2017-04-01 05:19] LABS: ALKALINE PHOSPHATASE 120 U/L (45-117); ALT (GPT) 13 U/L (10-53); TOTAL BILIRUBIN ADULT 0.6 MG/DL (0.2-1.0); TOTAL PROTEIN 6.1 GM/DL (6.4-8.2)
[2017-04-01] MEDS: ceFAZolin 2 GM PREMIX 50 ML IV SCH ×2 (05:31→14:59)
[2017-04-01] MEDS: ARTIFICIAL TEARS OPTH SOLN 15 ML BTL EACH EYE SCH ×3 (05:31→21:13)
[2017-04-01] MEDS: QUEtiapine FUMARATE 100 MG TAB PO SCH ×3 (05:31→21:13)
[2017-04-01] MEDS: NIFEdipine 10 MG CAP PO SCH ×3 (05:31→21:13)
[2017-04-01] MEDS: CHLORHEXIDINE 0.12% (ORAL KIT) 15 ML CUP MT SCH ×2 (08:00→20:00)
[2017-04-01] MEDS: PANTOPRAZOLE SOD 40 MG DELAYED RELEASE TAB PO SCH (09:00)
[2017-04-01] MEDS: DOCUSATE SODIUM 100 MG CAP PO SCH ×2 (09:00→19:46)
[2017-04-01] MEDS: POLYETHYLENE GLYCOL 17 GM PKG NG SCH ×2 (09:00→19:46)
[2017-04-01] MEDS: DOCUSATE SODIUM 50 MG/SENNA 8.6 MG TAB PO SCH ×2 (09:00→19:47)
[2017-04-01] MEDS: VALPROIC ACID SYRUP 250 MG/5 ML UDC PO SCH ×2 (09:01→20:16)
[2017-04-01] MEDS: LIDOCAINE HCL 5% PATCH T-DERMAL SCH (09:01)
[2017-04-01] MEDS: HEPARIN SODIUM - SQ 10,000 UNITS/ML VIAL SQ SCH ×2 (09:01→20:16)
[2017-04-01] MEDS: LISINOPRIL 20 MG TAB PO SCH (09:02)
[2017-04-01] MEDS: SODIUM CHLORIDE 0.9% FLUSH 10 ML FLUSH IV FLUSH SCH ×2 (09:02→20:15)
[2017-04-01] MEDS: CALCIUM ACETATE 667 MG CAP PO SCH ×3 (09:02→17:37)
[2017-04-01] MEDS: PANTOPRAZOLE SODIUM 40 MG VIAL IVP SCH (09:03)
[2017-04-01] MEDS: CARVEDILOL 12.5 MG TAB PO SCH ×2 (09:03→20:15)
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
[2017-04-01] MEDS: NITROGLYCERIN 0.4 MG/HR PATCH T-DERMAL SCH (10:15)
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
[2017-04-01] MEDS: cloNIDine HCL 0.3 MG/24 HR PATCH T-DERMAL SCH (11:24)
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
[2017-04-01] MEDS ORDERED: REMOVE OLD CATAPRES (CLONIDINE) PATCH T-DERMAL SCH (12:00)
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
--- NOTE | 2017-04-01 14:03 | RADRPT ---
EXAM DATE/TIME: 04/01/2017 13:26 [place] COMPARISON: CT BRAIN W/O CONTRAST, March 30, 2017, 3:57. INDICATIONS : Post operative. RADIATION DOSE: 47.83 CTDIvol (mGy) MEDICAL HISTORY : Non-responsive. SURGICAL HISTORY : Non-responsive. ENCOUNTER: Initial ACUITY: 1 day PAIN SCALE: Non-responsive LOCATION: cranial TECHNIQUE: Multiple contiguous axial images were obtained of the head. Using automated exposure control and adj ustment of the mA and/or kV according to patient size, radiation dose was kept as low as reasonably a chievable to obtain optimal diagnostic quality images. DICOM format image data is available electro nically for review and comparison. FINDINGS: A right frontal ventriculostomy is in place with the tip in the region of the right frontal horn. The re is pneumocephalus in the right frontopolar region with continued subdural hematoma and mass effect with midline shift increased from the prior study. Subarachnoid hemorrhage is present in the high pa rietal convexities and in the occipital regions. There no signs of herniation. Aneurysm clip is prese nt on the left side of the suprasellar cistern. Cerebellar atrophy is present. CONCLUSION: 1. Ventriculostomy placement as above with increasing mass effect and midline shift from right to lef t 5 mm without signs of herniation Alfredo Rodriguez MD on April 01, 2017 at 13:50 Board Certified Radiologist. This report was verified electronically.
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
[2017-04-01] MEDS: LABETALOL HCL 100 MG/20 ML VIAL IV PUSH PRN (18:36)
[2017-04-01] MEDS: REMOVE OLD LIDOCAINE PATCH T-DERMAL SCH (21:00)
[2017-04-02] VITALS (14 sets, daily range): BP systolic 136–200; BP diastolic 76–90; PULSE 76–115; RESP 17–34; TEMP 97.9–98.7; O2SAT 92–100
[2017-04-02] MEDS: cloNIDine HCL 0.1 MG TAB PO PRN ×2 (00:24→20:25)
[2017-04-02] MEDS: hydrALAZINE HCL 20 MG/ML VIAL IV PUSH PRN ×3 (01:35→18:12)
[2017-04-02] MEDS: RESP: ALBUTEROL 2.5 MG/IPRATROPIUM 0.5 MG NEB (SCH) NEB ×3 (03:26→15:16)
[2017-04-02] MEDS: LABETALOL HCL 100 MG/20 ML VIAL IV PUSH PRN (04:02)
[2017-04-02 04:06] LABS: AUTOMATED NEUTROPHIL # 8.1 TH/MM3 (1.8-7.7); BASOPHIL # 0.1 TH/MM3 (0-0.2); BASOPHIL % 0.9 % (0.0-2.0); EOSINOPHIL # 0.1 TH/MM3 (0-0.4); EOSINOPHIL % 1.4 % (0.0-4.0); HEMATOCRIT 35.1 % (35.0-46.0); HEMOGLOBIN 11.8 GM/DL (11.6-15.3); LYMPH % 8.2 % (9.0-44.0); LYMPHOCYTE # 0.8 TH/MM3 (1.0-4.8); MEAN CELL VOLUME 93.1 FL (80.0-100.0); MEAN CORPUSCULAR HEMOGLOBIN 31.2 PG (27.0-34.0); MEAN CORPUSCULAR HGB CONC 33.5 % (32.0-36.0); MEAN PLATELET VOLUME 8.6 FL (7.0-11.0); MONO % 8.4 % (0.0-8.0); MONOCYTE # 0.8 TH/MM3 (0-0.9); NEUT % 81.1 % (16.0-70.0); PLATELET COUNT 414 TH/MM3 (150-450); RED BLOOD COUNT 3.77 MIL/MM3 (4.00-5.30); RED CELL DISTRIBUTION WIDTH 20.7 % (11.6-17.2)
[2017-04-02] MEDS: levETIRAcetam INJ 500 MG in SODIUM CHLORIDE 0.9% INJ 100 ML IV SCH ×2 (04:16→16:51)
[2017-04-02 04:23] LABS: ALBUMIN 2.1 GM/DL (3.4-5.0); ALKALINE PHOSPHATASE 126 U/L (45-117); ALT (GPT) LESS THAN 6 U/L (10-53); AST (GOT) 31 U/L (15-37); BICARBONATE 24.5 MEQ/L (21.0-32.0); BLOOD UREA NITROGEN 58 MG/DL (7-18); CALCIUM 8.9 MG/DL (8.5-10.1); CHLORIDE 98 MEQ/L (98-107); CREATININE 5.77 MG/DL (0.50-1.00); GLOMERULAR FILTRATION RATE 8 ML/MIN (>89); GLUCOSE,RANDOM 94 MG/DL (74-106); SODIUM (NA) 134 MEQ/L (136-145); TOTAL BILIRUBIN ADULT 0.5 MG/DL (0.2-1.0); TOTAL PROTEIN 6.2 GM/DL (6.4-8.2)
[2017-04-02] MEDS: METOPROLOL TARTRATE 5 MG/5 ML VIAL IV PUSH SCH (05:02)
[2017-04-02] MEDS: QUEtiapine FUMARATE 100 MG TAB PO SCH ×3 (05:02→20:25)
[2017-04-02] MEDS: NIFEdipine 10 MG CAP PO SCH ×2 (05:02→13:25)
[2017-04-02] MEDS: ARTIFICIAL TEARS OPTH SOLN 15 ML BTL EACH EYE SCH ×3 (05:03→20:26)
[2017-04-02] MEDS: LACTULOSE SYRUP 20 GM/30 ML CUP OG-TUBE SCH ×3 (05:03→16:52)
--- NOTE | 2017-04-02 06:27 | RADRPT ---
EXAM DATE/TIME: 04/02/2017 05:13 [facility] COMPARISON: CHEST SINGLE AP, March 31, 2017, 4:08. INDICATIONS : Respiratory distress. MEDICAL HISTORY : Hepatitis C. Hypertension Renal insufficiency. SURGICAL HISTORY : Aneurysm clipping. ENCOUNTER: Subsequent ACUITY: 1 week PAIN SCORE: Non-responsive. LOCATION: Bilateral chest FINDINGS: A single AP portable semierect view of the chest was obtained. The patient is mildly rotated to the l eft. Tracheostomy tube remains in place and there is moderate cardiomegaly. Airspace opacity remains in the perihilar regions and both lung bases with blunting of the costophrenic angles. The left hemid iaphragm is obscured. CONCLUSION: Stable appearance with findings most characteristic of congestive heart failure. Marlo Myles MD on April 02, 2017 at 6:22 Board Certified Radiologist. This report was verified electronically.
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
[2017-04-02] MEDS: CHLORHEXIDINE 0.12% (ORAL KIT) 15 ML CUP MT SCH ×2 (08:00→20:26)
[2017-04-02] MEDS: PANTOPRAZOLE SODIUM 40 MG VIAL IVP SCH (09:00)
[2017-04-02] MEDS: DOCUSATE SODIUM 50 MG/SENNA 8.6 MG TAB PO SCH ×2 (09:00→21:09)
[2017-04-02] MEDS: SODIUM CHLORIDE 0.9% FLUSH 10 ML FLUSH IV FLUSH SCH ×2 (09:00→21:09)
[2017-04-02] MEDS: VALPROIC ACID SYRUP 250 MG/5 ML UDC PO SCH ×2 (09:00→20:24)
[2017-04-02] MEDS: DOCUSATE SODIUM 100 MG CAP PO SCH ×2 (09:00→20:25)
[2017-04-02] MEDS: CALCIUM ACETATE 667 MG CAP PO SCH ×3 (09:00→16:52)
[2017-04-02] MEDS: REMOVE OLD NITRO-DUR (NITROGLYCERIN) PATCH T-DERMAL SCH (09:00)
[2017-04-02] MEDS: CARVEDILOL 12.5 MG TAB PO SCH ×2 (09:00→20:25)
[2017-04-02] MEDS: PANTOPRAZOLE SOD 40 MG DELAYED RELEASE TAB PO SCH (09:00)
[2017-04-02] MEDS: LEVOFLOXACIN 250 MG PREMIX INJ 50 ML IV SCH (09:00)
[2017-04-02] MEDS: POLYETHYLENE GLYCOL 17 GM PKG NG SCH ×2 (09:00→21:09)
[2017-04-02] MEDS: HEPARIN SODIUM - SQ 10,000 UNITS/ML VIAL SQ SCH ×2 (09:31→20:26)
[2017-04-02] MEDS: NITROGLYCERIN 0.4 MG/HR PATCH T-DERMAL SCH (09:31)
[2017-04-02] MEDS: LIDOCAINE HCL 5% PATCH T-DERMAL SCH (09:31)
[2017-04-02] MEDS: ALBUMIN 25% INJ 100 ML IV PRN ×2 (11:32→11:33)
[2017-04-02] MEDS: GELATIN 12 MM/7 MM FOAM TOP PRN (11:32)
[2017-04-02] MEDS: EPOETIN ALFA 10,000 UNITS/ML VIAL IV PUSH PRN (11:32)
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
--- NOTE | 2017-04-02 13:12 | HHI.NSPN ---
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 Liq) 30 ml ONCE ONCE PO Last administered on 03/21/17at 11:29; Start 03/21/17 at 08:00; Stop 03/21/17 at 08:18; Status DC Methylnaltrexone [place] (Relistor Inj) 12 mg ONCE ONCE SQ Last administered on 03/21/17at 11:29; Start 03/21/17 at 08:00; Stop 03/21/17 at 08:17; Status DC Glycerin (Glycerin Adult Supp) 2 gm ONCE ONCE RECTAL Last administered on 03/21 11:29; Start 03/21/17 at 08:00; Stop 03/21/17 at 08:17; Status DC Fentanyl Citrate 250 ml @ 5 mls/hr TITRATE PRN IV SEDATION Last administered on 03/26/17at 04:14; Start 03/21/17 at 09:30; Stop 03/26/17 at 09:11; Status DC Propofol 100 ml @ 1.743 mls/ hr TITRATE PRN IV SEDATION Last administered on at 17:39; Start 03/21/17 at 09:30; Stop 03/26/17 at 09:11; Status DC Amlodipine Besylate (Norvasc) 5 mg DAILY PO Last administered on 03/22/17at 07: 45; Start 03/21/17 at 09:30; Stop 03/22/17 at 19:42; Status DC Miscellaneous Information (RASS Change Order) 1 ea ONCE ONCE XX Last administered on 03/21/17at 10:00; Start 03/21/17 at 10:00; Stop 03/21/17 at 10:24 ; Status DC Nicardipine HCl 50 mg/Sodium Chloride 500 ml @ 50 mls/hr TITRATE PRN IV Blood pressure management Last administered on 03/21/17at 20:05; Start 03/21/17 at 19: 00; Stop 03/21/17 at 23:55; Status DC Fentanyl Citrate (fentaNYL INJ) 50 mcg Q1H PRN IV PUSH PAIN/AGITATION Last administered on 03/30/17at 05:08; Start 03/21/17 at 21:15; Stop 03/30/17 at 09:05 ; Status DC Nicardipine HCl 50 mg/Sodium Chloride 250 ml @ 25 mls/hr TITRATE PRN IV Blood pressure management; Start 03/21/17 at 23:45; Stop 03/21/17 at 23:58; Status DC Nicardipine HCl 50 mg/Sodium Chloride 250 ml @ 25 mls/hr TITRATE PRN IV Blood pressure management Last administered on 03/23/17at 07:16; Start 03/21/17 at 23: 45; Stop 03/23/17 at 08:17; Status DC Heparin Sodium (Porcine) (Heparin Inj) 5,000 units Q12HR SQ Last administered on 03/26/17at 20:03; Start 03/22/17 at 21:00; Stop 03/29/17 at 10:36; Status DC Albuterol/ Ipratropium (Duoneb Neb) 1 ampule Q6HR NEB NEB Last administered on 03/26/17at 03:40; Start 03/22/17 at 16:00; Stop 03/26/17 at 07:07; Status DC Bisacodyl (Dulcolax Supp) 10 mg ONCE ONCE RECTAL Last administered on at 16:18; Start 03/22/17 at 15:00; Stop 03/22/17 at 15:05; Status DC Methylnaltrexone [place] (Relistor Inj) 12 mg ONCE ONCE SQ Last administered on 03/22/17at 16:18; Start 03/22/17 at 15:00; Stop 03/22/17 at 15:05; Status DC Labetalol HCl (Trandate Inj) 10 mg Q4HR PRN IV PUSH SBP >160 Last administered on 03/24/17at 15:14; Start 03/22/17 at 19:45; Stop 03/24/17 at 18:30; Status DC Clonidine (Catapres-Tts 0.2 Mg Patch.7d) 1 patch Q7D T-DERMAL Last administered on 03/22/17at 22:20; Start 03/22/17 at 20:00; Stop 03/25/17 at 09:27 ; Status DC Miscellaneous Information 1 Q7D T-DERMAL ; Start 03/29/17 at 20:00; Stop at 20:00; Status DC Clonidine (Catapres) 0.1 mg Q6H PRN PO for BP > 160 systolic Last administered on 03/25/17at 21:06; Start 03/23/17 at 03:15; Stop 03/26/17 at 07:09 ; Status DC Clevidipine 50 ml @ 2 mls/hr TITRATE PRN IV Blood Pressure Management Last administered on 03/25/17at 07:13; Start 03/23/17 at 09:00; Stop 03/25/17 at 09:27 ; Status DC Propranolol HCl (Inderal) 20 mg Q8HR PO ; Start 03/23/17 at 14:00; Stop at 14:00; Status DC Sodium Chloride 500 ml @ 30 mls/hr CONTINUOUS IV Last administered on at 12:52; Start 03/23/17 at 09:00; Stop 03/25/17 at 16:57; Status DC Metoclopramide HCl (Reglan Inj) 5 mg Q8H IV PUSH Last administered on at 23:48; Start 03/23/17 at 09:00; Stop 03/30/17 at 12:07; Status DC Metoprolol Tartrate (Lopressor Inj) 5 mg Q6H IV PUSH Last administered on at 10:00; Start 03/23/17 at 10:00; Stop 03/24/17 at 11:16; Status DC Diatrizoate Meglum/ Diatrizoate Sod ( Gastroview Liq) 18 ml ONCE ONCE PO Last administered on 03/23/17at 10:59; Start 03/23/17 at 09:30; Stop 03/23/17 at 09:31; Status DC Hydromorphone HCl (Dilaudid Pf Inj) 0.75 mg Q4HR IV PUSH ; Start 03/23/17 at 12: 00; Status UNV Lorazepam (Ativan Inj) 1 mg Q4HR IV PUSH ; Start 03/23/17 at 12:00; Status UNV Carvedilol (Coreg) 12.5 mg Q12HR PO ; Start 03/23/17 at 21:00; Stop 03/23/17 at 21:00; Status DC Carvedilol (Coreg) 12.5 mg Q12HR PO Last administered on 03/24/17at 09:00; Start 03/23/17 at 18:00; Stop 03/24/17 at 11:43; Status DC Iohexol (Omnipaque 350 Inj) 71 ml STK-MED ONCE IVCONTRAST Last administered on 03/23/17at 18:20; Start 03/23/17 at 18:20; Stop 03/23/17 at 18:21; Status DC Metoprolol Tartrate (Lopressor Inj) 5 mg Q6H IV PUSH Last administered on at 05:02; Start 03/24/17 at 12:00; Stop 04/02/17 at 10:28; Status DC Oxycodone HCl (Roxicodone) 5 mg Q4HR PO Last administered on 04/06/17at 16:00; Start 03/24/17 at 12:00; Stop 04/06/17 at 17:58; Status DC Carvedilol (Coreg) 25 mg Q12HR PO Last administered on 04/06/17at 07:55; Start 03/24/17 at 21:00; Stop 04/06/17 at 17:58; Status DC Methylnaltrexone [place] (Relistor Inj) 12 mg ONCE ONCE SQ Last administered on 03/24/17at 13:54; Start 03/24/17 at 11:45; Stop 03/24/17 at 12:36; Status DC Hydralazine HCl (Apresoline Inj) 20 mg Q4H PRN IV PUSH SBP>160, DBP>90 Last administered on 04/06/17at 12:04; Start 03/25/17 at 03:30; Stop 04/06/17 at 17:58 ; Status DC Labetalol HCl (Trandate Inj) 10 mg Q4H PRN IV PUSH SBP>160, DBP>90 Last administered on 03/25/17at 04:05; Start 03/25/17 at 03:30; Stop 03/25/17 at 15:35 ; Status DC Lisinopril (Prinivil) 10 mg Q12HR PO Last administered on 03/25/17at 12:37; Start 03/25/17 at 09:30; Stop 03/25/17 at 15:36; Status DC Clonidine (Catapres-Tts 0.3 Mg Patch.7d) 1 patch Q7D T-DERMAL Last administered on 04/01/17at 11:24; Start 03/25/17 at 12:00; Stop 04/06/17 at 17:58 ; Status DC Famotidine (Pepcid) 10 mg Q12H NG Last administered on 03/29/17at 05:18; Start 03/25/17 at 16:00; Stop 03/29/17 at 13:54; Status DC Levetriacetam (Keppra) 500 mg Q12HR PO Last administered on 03/30/17at 08:03; Start 03/25/17 at 21:00; Stop 03/30/17 at 12:07; Status DC Miscellaneous Information 1 Q7D T-DERMAL Last administered on 04/01/17at 12:00; Start 04/01/17 at 12:00; Stop 04/06/17 at 17:58; Status DC Levofloxacin/ Dextrose 50 ml @ 50 mls/hr Q24H IV Last administered on at 15:49; Start 03/25/17 at 15:00; Stop 03/26/17 at 10:30; Status DC Labetalol HCl (Trandate Inj) 10 mg Q1HR PRN IV PUSH SBP>160, DBP>90 Last administered on 04/02/17at 04:02; Start 03/25/17 at 15:45; Stop 04/02/17 at 10:29 ; Status DC Lisinopril (Prinivil) 20 mg Q12HR PO Last administered on 03/25/17at 21:07; Start 03/25/17 at 21:00; Stop 03/26/17 at 07:09; Status DC Nicardipine HCl 25 mg/Sodium Chloride 250 ml @ 50 mls/hr TITRATE PRN IV Blood Pressure Management Last administered on 03/27/17at 23:34; Start 03/25/17 at 17: 15; Stop 04/02/17 at 10:29; Status DC Albuterol/ Ipratropium (Duoneb Neb) 1 ampule Q6HR NEB NEB Last administered on 03/29/17at 08:17; Start 03/26/17 at 10:00; Stop 03/29/17 at 10:35; Status DC Clonidine (Catapres) 0.1 mg Q4HR PRN PO for BP > 160 systolic Last administered on 04/05/17at 04:38; Start 03/26/17 at 07:15; Stop 04/05/17 at 12:28 ; Status DC Lisinopril (Prinivil) 40 mg Q12HR PO Last administered on 04/01/17at 09:02; Start 03/26/17 at 09:00; Stop 04/01/17 at 09:22; Status DC Levofloxacin/ Dextrose 50 ml @ 50 mls/hr Q24H IV ; Start 03/26/17 at 10:30; Stop 03/26/17 at 10:31; Status DC Levofloxacin/ Dextrose 50 ml @ 50 mls/hr Q24H IV Last administered on at 08:09; Start 03/27/17 at 09:00; Stop 03/28/17 at 07:31; Status DC Vecuronium [place] (Norcuron 10 Mg Inj) 10 mg [employer]GER IV PUSH ; Start 03/27/17 at 11:00; Stop 03/29/17 at 10:59; Status DC Fentanyl Citrate 250 ml @ 5 mls/hr TITRATE PRN IV SEDATION Last administered on 03/28/17at 10:00; Start 03/26/17 at 15:30; Stop 03/31/17 at 09:12; Status DC Quetiapine Fumarate (SEROquel) 50 mg Q8HR PO Last administered on 03/29/17at 05: 18; Start 03/27/17 at 10:00; Stop 03/29/17 at 09:54; Status DC Haloperidol Lactate (Haldol Inj) 2 mg Q4H PRN IV PUSH AGITATION Last administered on 03/30/17at 13:10; Start 03/27/17 at 09:15; Stop 04/02/17 at 10:29 ; Status DC Midazolam HCl (Versed Inj) 5 mg STK-MED ONCE .ROUTE ; Start 03/27/17 at 10:43; Stop 03/27/17 at 10:44; Status DC Rocuronium [place] (Zemuron Inj) 100 mg STK-MED ONCE .ROUTE ; Start 03/27/17 at 10:43; Stop 03/27/17 at 10:44; Status DC Midazolam HCl (Versed Inj) 5 mg NOW ONCE IV PUSH Last administered on at 11:51; Start 03/27/17 at 12:30; Stop 03/27/17 at 12:31; Status DC Rocuronium [place] (Zemuron Inj) 100 mg NOW ONCE IV PUSH Last administered on 03/27/17at 11:52; Start 03/27/17 at 12:30; Stop 03/27/17 at 12:31; Status DC Amlodipine Besylate (Norvasc) 5 mg ONCE ONCE PEG Last administered on at 15:36; Start 03/27/17 at 14:45; Stop 03/27/17 at 14:46; Status DC Desmopressin Acetate (Ddavp Inj) 1 mcg ONCE ONCE IV PUSH Last administered on 03/28/17at 07:04; Start 03/28/17 at 06:30; Stop 03/28/17 at 06:31; Status DC Levofloxacin/ Dextrose 50 ml @ 50 mls/hr Q48H IV Last administered on at 09:07; Start 03/29/17 at 09:00; Stop 04/02/17 at 11:44; Status DC Lidocaine/ Epinephrine (Xylocaine-Epi 1%-1:100,000 Inj) 30 ml STK-MED ONCE .ROUTE Last administered on 03/28/17at 13:39; Start 03/28/17 at 13:39; Stop at 13:40; Status DC Pantoprazole Sodium (Protonix Inj) 40 mg DAILY IV PUSH Last administered on at 09:12; Start 03/28/17 at 13:45; Stop 03/31/17 at 16:08; Status DC Quetiapine Fumarate (SEROquel) 100 mg Q8HR PO Last administered on 04/05/17at 05 :23; Start 03/29/17 at 14:00; Stop 04/05/17 at 07:51; Status DC Albuterol/ Ipratropium (Duoneb Neb) 1 ampule Q6HR NEB NEB Last administered on 04/02/17at 15:16; Start 03/29/17 at 16:00; Stop 04/02/17 at 15:59; Status DC Heparin Sodium (Porcine) (Heparin Inj) 5,000 units Q12HR SQ Last administered on 04/06/17at 07:55; Start 03/30/17 at 21:00; Stop 04/06/17 at 17:58; Status DC Nifedipine (Procardia) 10 mg Q8HR PO Last administered on 03/29/17at 21:00; Start 03/29/17 at 16:15; Stop 03/30/17 at 03:59; Status DC Nifedipine (Procardia) 20 mg Q8HR PO Last administered on 04/02/17at 13:25; Start 03/30/17 at 06:00; Stop 04/02/17 at 16:30; Status DC Potassium Chloride (KCl Powder) 10 meq ONCE ONCE PO Last administered on at 08:06; Start 03/30/17 at 07:45; Stop 03/30/17 at 07:47; Status DC Valproic Acid (Depakene Liq) 250 mg BID PO Last administered on 04/04/17at 21:00 ; Start 03/30/17 at 10:00; Stop 04/05/17 at 07:51; Status DC Sodium Chloride 1,000 ml @ 100 mls/hr Q10H IV Last administered on 03/31/17at 00:07; Start 03/30/17 at 14:58; Stop 03/31/17 at 09:17; Status DC Cefazolin Sodium/ Dextrose 50 ml @ 150 mls/hr ONCE ONCE IV ; Start 03/30/17 at 15:00; Stop 03/30/17 at 15:19; Status DC Chlorhexidine Gluconate (Hibiclens 4% Top Soln) 1 applic HS TOP Last administered on 03/30/17at 21:00; Start 03/30/17 at 21:00; Stop 03/31/17 at 21:01 ; Status DC Cefazolin Sodium/ Dextrose 50 ml @ 150 mls/hr ONCE ONCE IV Last administered on 03/31/17at 15:00; Start 03/31/17 at 07:00; Stop 03/31/17 at 07:19; Status DC Lidocaine/ Epinephrine (Xylocaine-Epi 1%-1:100,000 Inj) 30 ml STK-MED ONCE .ROUTE Last administered on 03/31/17at 15:00; Start 03/31/17 at 07:41; Stop at 07:42; Status DC Thrombin (Thrombin Top Soln) 10,000 units STK-MED ONCE .ROUTE Last administered on 03/31/17at 15:00; Start 03/31/17 at 07:41; Stop 03/31/17 at 07:42 ; Status DC Gelatin (Gelfoam 100 Top) 1 foam STK-MED ONCE .ROUTE Last administered on at 15:00; Start 03/31/17 at 07:41; Stop 03/31/17 at 07:42; Status DC Bacitracin (Baciguent Oint) 15 applic STK-MED ONCE .ROUTE Last administered on 03/31/17at 15:00; Start 03/31/17 at 07:41; Stop 03/31/17 at 07:42; Status DC Gentamicin Sulfate (Gentamicin Inj) 240 mg STK-MED ONCE .ROUTE Last administered on 03/31/17at 15:00; Start 03/31/17 at 07:41; Stop 03/31/17 at 07:42 ; Status DC Propofol (Diprivan 200 Mg/20 ml Inj) 200 mg STK-MED ONCE IV ; Start 03/27/17 at 12:00; Stop 03/31/17 at 08:21; Status DC Furosemide (Lasix Inj) 40 mg STK-MED ONCE .ROUTE ; Start 03/31/17 at 13:15; Stop 03/31/17 at 13:16; Status DC Levetriacetam (Keppra Inj) 1,000 mg STK-MED ONCE IV ; Start 03/31/17 at 13:15; Stop 03/31/17 at 13:16; Status DC Cefazolin Sodium/ Dextrose 50 ml @ 100 mls/hr Q8H IV Last administered on 04/01at 14:59; Start 03/31/17 at 22:00; Stop 04/01/17 at 14:29; Status DC Levetriacetam 500 mg/Sodium Chloride 105 ml @ 400 mls/hr Q12H IV Last administered on 04/05/17at 04:37; Start 03/31/17 at 17:00; Stop 04/05/17 at 09:45 ; Status DC Bisacodyl (Dulcolax Supp) 10 mg DAILY PRN RECTAL CONSTIPATION; Start 03/31/17 at 15:00; Stop 04/06/17 at 17:58; Status DC Docusate Sodium (Colace) 100 mg BID PO Last administered on 04/02/17at 20:25; Start 03/31/17 at 15:00; Stop 04/05/17 at 07:51; Status DC Pantoprazole Sodium (Protonix) 40 mg DAILY PO ; Start 04/01/17 at 09:00; Stop at 10:29; Status DC Pantoprazole Sodium (Protonix Inj) 40 mg DAILY IVP Last administered on at 09:03; Start 04/01/17 at 09:00; Stop 04/02/17 at 10:29; Status DC Ondansetron HCl (Zofran Inj) 4 mg Q6H PRN IV PUSH NAUSEA OR VOMITING; Start at 15:00; Stop 04/05/17 at 12:28; Status DC Calcium Gluconate (Calcium Gluconate Inj) 1 gm UNSCH PRN IV SEE LABEL COMMENTS ; Start 03/31/17 at 15:00; Stop 04/06/17 at 17:58; Status DC Potassium Chloride 100 ml @ 50 mls/hr UNSCH PRN IV POTASSIUM LESS THAN 4; Start 03/31/17 at 15:00; Stop 04/06/17 at 17:58; Status DC Magnesium Sulfate 4 gm/Sodium Chloride 108 ml @ 108 mls/hr UNSCH PRN IV MAGNESIUM LESS THAN 2; Start 03/31/17 at 15:00; Stop 04/06/17 at 17:58; Status DC Acetaminophen/ Hydrocodone Bitart ([place] 10-325 Mg) 1 tab Q4H PRN PO PAIN SCALE 1 TO 5; Start 03/31/17 at 15:00; Stop 04/05/17 at 12:28; Status DC Acetaminophen/ Hydrocodone Bitart ([place] 10-325 Mg) 2 tab Q4H PRN PO PAIN SCALE 6 TO 10 Last administered on 04/04/17at 17:18; Start 03/31/17 at 15:00; Stop 04/05/17 at 12:28; Status DC Morphine Sulfate (Morphine Inj) 2 mg Q2H PRN IV PUSH PAIN SCALE 1 TO 6 Last administered on 04/01/17at 06:52; Start 03/31/17 at 15:00; Stop 04/02/17 at 10:29 ; Status DC Morphine Sulfate (Morphine Inj) 4 mg Q2H PRN IV PUSH PAIN SCALE 7 TO 10 Last administered on 04/01/17at 11:24; Start 03/31/17 at 15:00; Stop 04/02/17 at 10:29 ; Status DC Acetaminophen (Tylenol) 650 mg Q4H PRN PO TEMPERATURE > 101.5 F; Start at 15:00; Stop 04/06/17 at 17:58; Status DC Midazolam HCl (Versed Inj) 2 mg STK-MED ONCE .ROUTE ; Start 03/31/17 at 16:08; Stop 03/31/17 at 16:09; Status DC Fentanyl Citrate (fentaNYL INJ) 200 mcg STK-MED ONCE .ROUTE ; Start 03/31/17 at 16:08; Stop 03/31/17 at 16:09; Status DC Nitroglycerin (Nitro-Dur 0.4 Mg Patch.24 Hr) 1 patch DAILY T-DERMAL Last administered on 04/06/17at 07:56; Start 04/01/17 at 09:30; Stop 04/06/17 at 17:58 ; Status DC Miscellaneous Information 1 DAILY T-DERMAL Last administered on 04/06/17at 07:55 ; Start 04/02/17 at 09:00; Stop 04/06/17 at 17:58; Status DC Rocuronium [place] (Zemuron Inj) 50 mg STK-MED ONCE IV PUSH ; Start 03/31/17 at 12:00; Stop 04/01/17 at 14:13; Status DC Dexamethasone Sodium Phosphate (Decadron Inj) 4 mg STK-MED ONCE IV ; Start 03/31 at 12:00; Stop 04/01/17 at 14:13; Status DC Ondansetron HCl (Zofran Inj) 4 mg STK-MED ONCE IV ; Start 03/31/17 at 12:00; Stop 04/01/17 at 14:13; Status DC Propofol (Diprivan 200 Mg/20 ml Inj) 200 mg STK-MED ONCE IV ; Start 03/31/17 at 12:00; Stop 04/01/17 at 14:13; Status DC Labetalol HCl (Trandate Inj) 100 mg STK-MED ONCE IV ; Start 03/31/17 at 12:00; Stop 04/01/17 at 14:13; Status DC Levofloxacin (Levaquin) 250 mg Q48H PO Last administered on 04/06/17at 11:56; Start 04/02/17 at 12:00; Stop 04/06/17 at 17:58; Status DC Nifedipine (Procardia) 20 mg Q8HR PO Last administered on 04/06/17at 14:00; Start 04/02/17 at 22:00; Stop 04/06/17 at 17:58; Status DC Metoprolol Tartrate (Lopressor Inj) 5 mg STAT ONCE IV PUSH ; Start 04/04/17 at 05:45; Stop 04/04/17 at 05:46; Status DC Lidocaine/ Epinephrine (Xylocaine-Epi 2%-1:100,000 Inj) 20 ml ONCE ONCE INFIL Last administered on 04/05/17at 07:00; Start 04/05/17 at 07:00; Stop 04/05/17 at 07:01; Status DC Lactulose (Lactulose Liq) 30 ml DAILY OG-TUBE ; Start 04/05/17 at 09:00; Stop at 17:58; Status DC Polyethylene Glycol (Miralax) 17 gm DAILY NG ; Start 04/05/17 at 09:00; Stop at 17:58; Status DC Quetiapine Fumarate (SEROquel) 50 mg Q8HR PO Last administered on 04/06/17at 05: 03; Start 04/05/17 at 14:00; Stop 04/06/17 at 09:19; Status DC Quetiapine Fumarate (SEROquel) 50 mg BID PO ; Start 04/06/17 at 21:00; Stop at 21:00; Status DC Amlodipine Besylate (Norvasc) 5 mg ONCE STAT PO Last administered on at 12:19; Start 04/06/17 at 12:19; Stop 04/06/17 at 12:30; Status DC Clonidine (Catapres) 0.1 mg ONCE ONCE PO Last administered on 04/06/17at 14:49 ; Start 04/06/17 at 15:00; Stop 04/06/17 at 15:01; Status DC Morphine Sulfate (Morphine Inj) 2 mg Q3H PRN SQ breakthrough pain; Start at 12:30; Stop 04/06/17 at 13:17; Status DC Morphine Sulfate (Morphine Inj) 2 mg Q3H PRN IV PUSH breakthrough pain Last administered on 04/06/17at 15:15; Start 04/06/17 at 15:30; Stop 04/06/17 at 17:58 ; Status DC Morphine Sulfate (Morphine Inj) 4 mg NOW ONCE IV PUSH Last administered on at 17:00; Start 04/06/17 at 17:00; Stop 04/06/17 at 17:01; Status DC (Saulo King MD) Medical Decision Making MDM Remarks 56-year-old female traumatic brain injury placement of intracranial pressure monitor to 03/15/17, dc'ed 03/20/17 increased right subdural hygroma with mass effect and now 3.9 mm midline shift, s/p right fontal guilherme hole for evacuation of subdural hygroma 03/31/17 Renal failure on hemodialysis f/u CT Brain 04/01/17 still with persistent moderate amt of left side subdural hygroma with pneumocephalus (iLbia Jeffery) MDM Remarks Caprini Risk Assessment Model Point Value = 1 Point Value = 2 Point Value = 3 Point Value = 5 Age 41-60 Minor surgery BMI > 25 kg/m2 Swollen legs Varicose veins or History of unexplained or recurrent spontaneous Oral contraceptives or hormone replacement Sepsis (< 1 month) Serious lung disease, including pneumonia (< 1 month) Abnormal pulmonary function Acute myocardial infarction Congestive heart failure (< 1 month) History of inflammatory bowel disease Medical patient at bed rest Age 61-74 Arthroscopic surgery Major open surgery (> 45 min) Laparoscopic surgery (> 45 min) Malignancy Confined to bed (> 72 hours) Immobilizing plaster cast Central venous access Age >= 75 History of VTE Family history of VTE Factor V Leiden Prothrombin [id number] Lupus anticoagulant Anticardiolipin antibodies Elevated serum homocysteine Heparin-induced thrombocytopenia Other congenital or acquired thrombophilia Stroke (< 1 month) Elective arthroplasty Hip, pelvis, or leg fracture Acute spinal cord injury (< 1 month) Prophylaxis Regimen Total Risk Factor Score Risk Level Prophylaxis Regimen 0-1 Low Early ambulation 2 Moderate Order ONE of the following: *Sequential Compression Device (SCD) *Heparin 5000 units SQ BID 3-4 Higher Order ONE of the following medications: *Heparin 5000 units SQ TID *Enoxaparin/Lovenox 40 mg SQ daily (WT < 150 kg, CrCl > 30 mL/min) *Enoxaparin/Lovenox 30 mg SQ daily (WT < 150 kg, CrCl > 10-29 mL/min) *Enoxaparin/Lovenox 30 mg SQ BID (WT < 150 kg, CrCl > 30 mL/min) AND/OR *Sequential Compression Device (SCD) 5 or more Highest Order ONE of the following medications: *Heparin 5000 units SQ TID (Preferred with Epidurals) *Enoxaparin/Lovenox 40 mg SQ daily (WT < 150 kg, CrCl > 30 mL/min) *Enoxaparin/Lovenox 30 mg SQ daily (WT < 150 kg, CrCl > 10-29 mL/min) *Enoxaparin/Lovenox 30 mg SQ BID (WT < 150 kg, CrCl > 30 mL/min) AND *Sequential Compression Device (SCD) (Saulo King MD) Plan Plan Remarks cont current care cont neuro checks post-op f/u CT Brain reviewed by Dr. King cont SHANTANU draining - keep ANNIE rea, dw nursing (Libia Jeffery) Attending Statement As above Continue neuro checks. Pulmonary.. Continue aggressive pulmonary toilette, nasotracheal suction, and breathing treatments with nebulizers. Nutrition. NPO Renal. monitor closely urine output, BUN and creatinine Endocrine. Monitor serial Acu checks and SSI as needed in detail ID monitor for signs of infection Protonix for stress ulcer prophylaxis Teo hose and SCD's for DVT prophylaxis The exam, history, and the medical decision-making described in the above note were completed with the assistance of the mid-level provider. I reviewed and agree with the findings presented. I attest that I had a [id number] encounter with the patient on the same day, and personally performed and documented my assessment and findings in the medical record. (Saulo King MD) Libia Jeffery Apr 02, 2017 13:12 Saulo King MD Apr 12, 2017 20:35
[2017-04-02] MEDS: LEVOFLOXACIN 250 MG TAB PO SCH (13:22)
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
[2017-04-02] MEDS: ACETAMINOPHEN/HYDROcodone 325 MG/10 MG TAB PO PRN (18:13)
[2017-04-02] MEDS: NIFEdipine 20 MG CAP PO SCH (20:25)
[2017-04-02] MEDS: REMOVE OLD LIDOCAINE PATCH T-DERMAL SCH (20:26)
[2017-04-02] MEDS: RESP: ALBUTEROL 2.5 MG/3 ML NEB (PRN) NEB (21:01)
[2017-04-03] VITALS (19 sets, daily range): BP systolic 131–161; BP diastolic 73–82; PULSE 78–123; RESP 16–38; TEMP 98.2–99.6; O2SAT 89–100
[2017-04-03] MEDS: ARTIFICIAL TEARS OPTH SOLN 15 ML BTL EACH EYE SCH ×3 (04:18→23:26)
[2017-04-03] MEDS: levETIRAcetam INJ 500 MG in SODIUM CHLORIDE 0.9% INJ 100 ML IV SCH ×2 (04:23→17:00)
[2017-04-03] MEDS: hydrALAZINE HCL 20 MG/ML VIAL IV PUSH PRN (04:32)
[2017-04-03 04:46] LABS: AUTOMATED NEUTROPHIL # 8.7 TH/MM3 (1.8-7.7); BASOPHIL # 0.1 TH/MM3 (0-0.2); BASOPHIL % 0.9 % (0.0-2.0); EOSINOPHIL # 0.1 TH/MM3 (0-0.4); EOSINOPHIL % 0.7 % (0.0-4.0); HEMATOCRIT 32.8 % (35.0-46.0); HEMOGLOBIN 11.1 GM/DL (11.6-15.3); LYMPH % 7.7 % (9.0-44.0); LYMPHOCYTE # 0.9 TH/MM3 (1.0-4.8); MEAN CELL VOLUME 93.6 FL (80.0-100.0); MEAN CORPUSCULAR HEMOGLOBIN 31.8 PG (27.0-34.0); MEAN PLATELET VOLUME 8.3 FL (7.0-11.0); MONO % 13.7 % (0.0-8.0); MONOCYTE # 1.5 TH/MM3 (0-0.9); PLATELET COUNT 404 TH/MM3 (150-450); RED BLOOD COUNT 3.51 MIL/MM3 (4.00-5.30); RED CELL DISTRIBUTION WIDTH 21.5 % (11.6-17.2); WHITE BLOOD COUNT 11.2 TH/MM3 (4.0-11.0)
[2017-04-03 05:12] LABS: ALBUMIN 2.6 GM/DL (3.4-5.0); AST (GOT) 24 U/L (15-37); BICARBONATE 27.1 MEQ/L (21.0-32.0); BLOOD UREA NITROGEN 50 MG/DL (7-18); CALCIUM 9.2 MG/DL (8.5-10.1); CHLORIDE 97 MEQ/L (98-107); GLOMERULAR FILTRATION RATE 9 ML/MIN (>89); GLUCOSE,RANDOM 125 MG/DL (74-106); SODIUM (NA) 136 MEQ/L (136-145)
[2017-04-03 05:14] LABS: ALT (GPT) LESS THAN 6 U/L (10-53)
[2017-04-03 05:16] LABS: ALKALINE PHOSPHATASE 153 U/L (45-117); TOTAL BILIRUBIN ADULT 0.5 MG/DL (0.2-1.0); TOTAL PROTEIN 6.5 GM/DL (6.4-8.2)
[2017-04-03] MEDS: QUEtiapine FUMARATE 100 MG TAB PO SCH ×3 (05:35→20:49)
[2017-04-03] MEDS: NIFEdipine 20 MG CAP PO SCH ×3 (05:35→20:48)
[2017-04-03] MEDS: LACTULOSE SYRUP 20 GM/30 ML CUP OG-TUBE SCH ×5 (05:36→23:26)
--- NOTE | 2017-04-03 06:01 | RADRPT ---
EXAM DATE/TIME: 04/03/2017 04:25 [place] COMPARISON: CHEST SINGLE AP, April 02, 2017, 5:13. INDICATIONS : Respiratory distress. MEDICAL HISTORY : Hepatitis C. Hypertension Renal insufficiency SURGICAL HISTORY : Aneurysm clipping. ENCOUNTER: Subsequent ACUITY: 2 weeks PAIN SCORE: Non-responsive. LOCATION: Bilateral chest FINDINGS: Bibasilar consolidation present, improved on the right and not significantly changed on the left. Sma ll, bilateral pleural effusions are present. No pneumothorax. Mild cardiomegaly stable. Tracheostomy tube again noted. CONCLUSION: Bibasilar consolidation and small effusions, improved on the right and not significantly changed on t he left. Alex Napoles MD on April 03, 2017 at 5:59 Board Certified Radiologist. This report was verified electronically.
[2017-04-03] MEDS: CHLORHEXIDINE 0.12% (ORAL KIT) 15 ML CUP MT SCH ×2 (08:00→20:00)
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
[2017-04-03] MEDS: VALPROIC ACID SYRUP 250 MG/5 ML UDC PO SCH ×2 (09:00→20:49)
[2017-04-03] MEDS: HEPARIN SODIUM - SQ 10,000 UNITS/ML VIAL SQ SCH ×2 (09:00→20:48)
[2017-04-03] MEDS: CALCIUM ACETATE 667 MG CAP PO SCH ×3 (09:00→17:25)
[2017-04-03] MEDS: SODIUM CHLORIDE 0.9% FLUSH 10 ML FLUSH IV FLUSH SCH ×2 (09:00→20:49)
[2017-04-03] MEDS: POLYETHYLENE GLYCOL 17 GM PKG NG SCH ×2 (09:00→20:50)
[2017-04-03] MEDS: REMOVE OLD NITRO-DUR (NITROGLYCERIN) PATCH T-DERMAL SCH (09:00)
[2017-04-03] MEDS: DOCUSATE SODIUM 100 MG CAP PO SCH ×2 (09:00→20:50)
[2017-04-03] MEDS: DOCUSATE SODIUM 50 MG/SENNA 8.6 MG TAB PO SCH ×2 (09:00→20:50)
[2017-04-03] MEDS: NITROGLYCERIN 0.4 MG/HR PATCH T-DERMAL SCH (09:00)
[2017-04-03] MEDS: CARVEDILOL 12.5 MG TAB PO SCH ×2 (09:00→20:48)
[2017-04-03] MEDS: LIDOCAINE HCL 5% PATCH T-DERMAL SCH (09:00)
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
[2017-04-03] MEDS: REMOVE OLD LIDOCAINE PATCH T-DERMAL SCH (21:00)
[2017-04-04] VITALS (21 sets, daily range): BP systolic 138–173; BP diastolic 79–93; PULSE 77–90; RESP 16–24; TEMP 97.8–98.9; O2SAT 100
[2017-04-04] MEDS: hydrALAZINE HCL 20 MG/ML VIAL IV PUSH PRN ×3 (03:42→19:01)
[2017-04-04] MEDS: cloNIDine HCL 0.1 MG TAB PO PRN ×4 (04:26→22:09)
--- NOTE | 2017-04-04 04:59 | RADRPT ---
EXAM DATE/TIME: 04/04/2017 04:41 [place] COMPARISON: CT BRAIN W/O CONTRAST, April 01, 2017, 13:26. INDICATIONS : Trauma, follow up subdural hematoma. RADIATION DOSE: 34.54 CTDIvol (mGy) MEDICAL HISTORY : Non-responsive. SURGICAL HISTORY : Non-responsive. ENCOUNTER: Initial ACUITY: 1 day PAIN SCALE: Non-responsive LOCATION: cranial TECHNIQUE: Multiple contiguous axial images were obtained of the head. Using automated exposure control and adj ustment of the mA and/or kV according to patient size, radiation dose was kept as low as reasonably a chievable to obtain optimal diagnostic quality images. DICOM format image data is available electro nically for review and comparison. FINDINGS: Fluid or non-acute blood with air again seen in the right frontal subdural space and measures approxi mately 19 mm in maximal thickness, not significantly changed. There is a nonacute left frontal subdur al that measures approximately 6 mm in maximal thickness, also not significantly changed. There is a proximally 6 mm of leftward midline shift again noted. A right frontal drainage catheter is again not ed. Small amounts of acute subarachnoid and subdural blood again seen of both parietal and occipital lobe s without significant change. The right parietal subdural hematomas approximately 5 mm in maximum thi ckness. Cerebellar atrophy again noted. No acute posterior fossa abnormality. No mass lesion demonstrated. No evidence of an acute ischemic event. Aneurysm clip again seen. CONCLUSION: Right greater than left subdural hematomas with acute and nonacute fluid again noted and approximatel y 6 mm of leftward midline shift, all not significantly changed. No new or significantly increased bl ood. Right frontal drainage catheter again noted. Alex Napoles MD on April 04, 2017 at 4:54 Board Certified Radiologist. This report was verified electronically.
[2017-04-04] MEDS: NIFEdipine 20 MG CAP PO SCH ×3 (05:38→21:48)
[2017-04-04] MEDS: levETIRAcetam INJ 500 MG in SODIUM CHLORIDE 0.9% INJ 100 ML IV SCH ×2 (05:39→17:00)
[2017-04-04] MEDS: QUEtiapine FUMARATE 100 MG TAB PO SCH ×3 (05:39→21:48)
[2017-04-04] MEDS ORDERED: METOPROLOL TARTRATE 5 MG/5 ML VIAL IV PUSH ONE (05:45)
[2017-04-04] MEDS: ARTIFICIAL TEARS OPTH SOLN 15 ML BTL EACH EYE SCH ×3 (06:00→21:49)
[2017-04-04] MEDS: LACTULOSE SYRUP 20 GM/30 ML CUP OG-TUBE SCH ×3 (06:00→17:18)
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
[2017-04-04] MEDS: CHLORHEXIDINE 0.12% (ORAL KIT) 15 ML CUP MT SCH ×2 (08:00→20:00)
[2017-04-04] MEDS: SODIUM CHLORIDE 0.9% FLUSH 10 ML FLUSH IV FLUSH SCH ×2 (09:00→21:00)
[2017-04-04] MEDS: LIDOCAINE HCL 5% PATCH T-DERMAL SCH (09:00)
[2017-04-04] MEDS: CALCIUM ACETATE 667 MG CAP PO SCH ×3 (09:00→17:19)
[2017-04-04] MEDS: NITROGLYCERIN 0.4 MG/HR PATCH T-DERMAL SCH (09:00)
[2017-04-04] MEDS: DOCUSATE SODIUM 100 MG CAP PO SCH ×2 (09:00→21:00)
[2017-04-04] MEDS: HEPARIN SODIUM - SQ 10,000 UNITS/ML VIAL SQ SCH ×2 (09:00→21:00)
[2017-04-04] MEDS: CARVEDILOL 12.5 MG TAB PO SCH ×2 (09:00→21:00)
[2017-04-04] MEDS: DOCUSATE SODIUM 50 MG/SENNA 8.6 MG TAB PO SCH ×2 (09:00→21:00)
[2017-04-04] MEDS: VALPROIC ACID SYRUP 250 MG/5 ML UDC PO SCH ×2 (09:00→21:00)
[2017-04-04] MEDS: REMOVE OLD NITRO-DUR (NITROGLYCERIN) PATCH T-DERMAL SCH (09:00)
[2017-04-04] MEDS: POLYETHYLENE GLYCOL 17 GM PKG NG SCH ×2 (09:00→21:00)
[2017-04-04] MEDS: LEVOFLOXACIN 250 MG TAB PO SCH (12:00)
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
[2017-04-04] MEDS: ACETAMINOPHEN/HYDROcodone 325 MG/10 MG TAB PO PRN (17:18)
[2017-04-04] MEDS: REMOVE OLD LIDOCAINE PATCH T-DERMAL SCH (21:00)
[2017-04-05] VITALS (15 sets, daily range): BP systolic 151–190; BP diastolic 74–92; PULSE 74–86; RESP 12–22; TEMP 98.1–98.5; O2SAT 91–100
[2017-04-05] MEDS: hydrALAZINE HCL 20 MG/ML VIAL IV PUSH PRN ×2 (03:46→18:30)
[2017-04-05] MEDS: levETIRAcetam INJ 500 MG in SODIUM CHLORIDE 0.9% INJ 100 ML IV SCH (04:37)
[2017-04-05] MEDS: cloNIDine HCL 0.1 MG TAB PO PRN (04:38)
[2017-04-05] MEDS: ARTIFICIAL TEARS OPTH SOLN 15 ML BTL EACH EYE SCH ×3 (05:23→21:02)
[2017-04-05] MEDS: QUEtiapine FUMARATE 100 MG TAB PO SCH (05:23)
[2017-04-05] MEDS: NIFEdipine 20 MG CAP PO SCH ×3 (05:23→21:01)
[2017-04-05] MEDS: LACTULOSE SYRUP 20 GM/30 ML CUP OG-TUBE SCH ×3 (05:23→09:00)
[2017-04-05] MEDS ORDERED: LIDOCAINE 2%/EPINEPHrine 1:100,000 20ML MDV INFIL ONE (07:00)
[2017-04-05] MEDS: CHLORHEXIDINE 0.12% (ORAL KIT) 15 ML CUP MT SCH ×2 (08:00→20:00)
[2017-04-05] MEDS: NITROGLYCERIN 0.4 MG/HR PATCH T-DERMAL SCH (09:00)
[2017-04-05] MEDS: CALCIUM ACETATE 667 MG CAP PO SCH ×3 (09:00→18:00)
[2017-04-05] MEDS: POLYETHYLENE GLYCOL 17 GM PKG NG SCH (09:00)
[2017-04-05] MEDS: CARVEDILOL 12.5 MG TAB PO SCH ×2 (09:00→20:16)
[2017-04-05] MEDS: DOCUSATE SODIUM 50 MG/SENNA 8.6 MG TAB PO SCH ×2 (09:00→20:17)
[2017-04-05] MEDS: REMOVE OLD NITRO-DUR (NITROGLYCERIN) PATCH T-DERMAL SCH (09:00)
[2017-04-05] MEDS: HEPARIN SODIUM - SQ 10,000 UNITS/ML VIAL SQ SCH ×2 (09:00→20:16)
[2017-04-05] MEDS: SODIUM CHLORIDE 0.9% FLUSH 10 ML FLUSH IV FLUSH SCH ×2 (09:00→20:17)
[2017-04-05 10:05] LABS: HEMATOCRIT 33.6 % (35.0-46.0); HEMOGLOBIN 11.3 GM/DL (11.6-15.3); MEAN CELL VOLUME 95.9 FL (80.0-100.0); MEAN CORPUSCULAR HEMOGLOBIN 32.2 PG (27.0-34.0); MEAN CORPUSCULAR HGB CONC 33.6 % (32.0-36.0); MEAN PLATELET VOLUME 8.1 FL (7.0-11.0); PLATELET COUNT 282 TH/MM3 (150-450); RED CELL DISTRIBUTION WIDTH 21.6 % (11.6-17.2); WHITE BLOOD COUNT 8.3 TH/MM3 (4.0-11.0)
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
[2017-04-05] MEDS: QUEtiapine FUMARATE 25 MG TAB PO SCH ×2 (13:45→21:01)
[2017-04-06] VITALS (10 sets, daily range): BP systolic 162–182; BP diastolic 55–88; PULSE 78–102; RESP 16–24; TEMP 98–98.7; O2SAT 94–100
[2017-04-06] MEDS: hydrALAZINE HCL 20 MG/ML VIAL IV PUSH PRN ×2 (02:57→12:04)
[2017-04-06] MEDS: QUEtiapine FUMARATE 25 MG TAB PO SCH (05:03)
[2017-04-06] MEDS: NIFEdipine 20 MG CAP PO SCH ×2 (05:04→14:00)
[2017-04-06] MEDS: ARTIFICIAL TEARS OPTH SOLN 15 ML BTL EACH EYE SCH ×2 (05:04→14:00)
[2017-04-06] MEDS: RESP: ALBUTEROL 2.5 MG/3 ML NEB (PRN) NEB (05:10)
[2017-04-06 05:19] LABS: AUTOMATED NEUTROPHIL # 8.2 TH/MM3 (1.8-7.7); BASOPHIL # 0.1 TH/MM3 (0-0.2); BASOPHIL % 1.1 % (0.0-2.0); EOSINOPHIL # 0.4 TH/MM3 (0-0.4); EOSINOPHIL % 3.9 % (0.0-4.0); HEMATOCRIT 35.1 % (35.0-46.0); HEMOGLOBIN 11.8 GM/DL (11.6-15.3); LYMPH % 7.8 % (9.0-44.0); LYMPHOCYTE # 0.8 TH/MM3 (1.0-4.8); MEAN CELL VOLUME 95.6 FL (80.0-100.0); MEAN CORPUSCULAR HEMOGLOBIN 32.2 PG (27.0-34.0); MEAN CORPUSCULAR HGB CONC 33.6 % (32.0-36.0); MEAN PLATELET VOLUME 8.2 FL (7.0-11.0); MONO % 9.4 % (0.0-8.0); NEUT % 77.8 % (16.0-70.0); PLATELET COUNT 296 TH/MM3 (150-450); RED BLOOD COUNT 3.67 MIL/MM3 (4.00-5.30); RED CELL DISTRIBUTION WIDTH 21.2 % (11.6-17.2); WHITE BLOOD COUNT 10.6 TH/MM3 (4.0-11.0)
[2017-04-06 05:47] LABS: CALCIUM 9.5 MG/DL (8.5-10.1); CREATININE 5.31 MG/DL (0.50-1.00)
[2017-04-06] MEDS: CHLORHEXIDINE 0.12% (ORAL KIT) 15 ML CUP MT SCH (07:54)
[2017-04-06] MEDS: SODIUM CHLORIDE 0.9% FLUSH 10 ML FLUSH IV FLUSH SCH (07:54)
[2017-04-06] MEDS: POLYETHYLENE GLYCOL 17 GM PKG NG SCH (07:54)
[2017-04-06] MEDS: CALCIUM ACETATE 667 MG CAP PO SCH ×2 (07:55→13:00)
[2017-04-06] MEDS: DOCUSATE SODIUM 50 MG/SENNA 8.6 MG TAB PO SCH (07:55)
[2017-04-06] MEDS: HEPARIN SODIUM - SQ 10,000 UNITS/ML VIAL SQ SCH (07:55)
[2017-04-06] MEDS: REMOVE OLD NITRO-DUR (NITROGLYCERIN) PATCH T-DERMAL SCH (07:55)
[2017-04-06] MEDS: CARVEDILOL 12.5 MG TAB PO SCH (07:55)
[2017-04-06] MEDS: LACTULOSE SYRUP 20 GM/30 ML CUP OG-TUBE SCH (07:55)
[2017-04-06] MEDS: NITROGLYCERIN 0.4 MG/HR PATCH T-DERMAL SCH (07:56)
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
[2017-04-06] MEDS: LEVOFLOXACIN 250 MG TAB PO SCH (11:56)
[2017-04-06] MEDS: MORPHINE SULFATE 2 MG/ML INJ IV PUSH PRN ×2 (12:15→15:15)
[2017-04-06] MEDS ORDERED: amLODIPine BESYLATE 5 MG TAB PO STA (12:19)
[2017-04-06] MEDS ORDERED: MORPHINE SULFATE 2 MG/ML INJ SQ PRN (12:30)
[2017-04-06] MEDS ORDERED: cloNIDine HCL 0.1 MG TAB PO ONE (15:00)
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
[2017-04-06] MEDS ORDERED: MORPHINE SULFATE 4 MG/ML INJ IV PUSH ONE (17:00)
[2017-04-06] MEDS ORDERED: QUEtiapine FUMARATE 25 MG TAB PO SCH (21:00)
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
== END 2017-04-06 17:30 | DRG 3 ==
LOC: NEPE 21:48 → EDSEX 22:06 → NEDA 22:06 → N03A 23:43
PROVIDERS: ADMIT Surgery; ATTEND Surgery
PROC: 00H032Z Insertion of Monitoring Device into Brain, Percutaneous Approach (ICD-10-PCS; principal; 2017-03-15)
PROC: 5A1955Z Respiratory Ventilation, Greater than 96 Consecutive Hours (ICD-10-PCS; 2017-03-15)
PROC: 4A103BD Monitoring of Intracranial Pressure, Percutaneous Approach (ICD-10-PCS; 2017-03-15)
PROC: 0BH17EZ Insertion of Endotracheal Airway into Trachea, Via Natural or Artificial Opening (ICD-10-PCS; 2017-03-15)
PROC: 05H533Z Insertion of Infusion Device into Right Subclavian Vein, Percutaneous Approach (ICD-10-PCS; 2017-03-15)
PROC: 0T9B70Z Drainage of Bladder with Drainage Device, Via Natural or Artificial Opening (ICD-10-PCS; 2017-03-15)
PROC: 30233N1 Transfusion of Nonautologous Red Blood Cells into Peripheral Vein, Percutaneous Approach (ICD-10-PCS; 2017-03-15)
PROC: 0DH67UZ Insertion of Feeding Device into Stomach, Via Natural or Artificial Opening (ICD-10-PCS; 2017-03-15)
PROC: 5A1D70Z Performance of Urinary Filtration, Intermittent, Less than 6 Hours Per Day (ICD-10-PCS; 2017-03-16)
PROC: 6A551Z2 Pheresis of Platelets, Multiple (ICD-10-PCS; 2017-03-16)
PROC: 03HY32Z Insertion of Monitoring Device into Upper Artery, Percutaneous Approach (ICD-10-PCS; 2017-03-17)
PROC: 0B113F4 Bypass Trachea to Cutaneous with Tracheostomy Device, Percutaneous Approach (ICD-10-PCS; 2017-03-27)
PROC: 0DH63UZ Insertion of Feeding Device into Stomach, Percutaneous Approach (ICD-10-PCS; 2017-03-27)
PROC: 0B9M8ZZ Drainage of Bilateral Lungs, Via Natural or Artificial Opening Endoscopic (ICD-10-PCS; 2017-03-27)
PROC: 0DB28ZX Excision of Middle Esophagus, Via Natural or Artificial Opening Endoscopic, Diagnostic (ICD-10-PCS; 2017-03-27)
PROC: 0DB68ZX Excision of Stomach, Via Natural or Artificial Opening Endoscopic, Diagnostic (ICD-10-PCS; 2017-03-27)
PROC: 0W363ZZ Control Bleeding in Neck, Percutaneous Approach (ICD-10-PCS; 2017-03-28)
PROC: 00C43ZZ Extirpation of Matter from Intracranial Subdural Space, Percutaneous Approach (ICD-10-PCS; 2017-03-31)
DX: S06.5X9A Traumatic subdural hemorrhage with loss of consciousness of unspecified duration, initial encounter (principal); G93.6 Cerebral edema; J69.0 Pneumonitis due to inhalation of food and vomit; S27.0XXA Traumatic pneumothorax, initial encounter; J18.9 Pneumonia, unspecified organism; N25.81 Secondary hyperparathyroidism of renal origin; K22.10 Ulcer of esophagus without bleeding; E87.0 Hyperosmolality and hypernatremia; T17.918A Gastric contents in respiratory tract, part unspecified causing other injury, initial encounter; J96.01 Acute respiratory failure with hypoxia; N18.6 End stage renal disease; J44.0 Chronic obstructive pulmonary disease with (acute) lower respiratory infection; Z99.11 Dependence on respirator [ventilator] status; S32.018A Other fracture of first lumbar vertebra, initial encounter for closed fracture; J44.1 Chronic obstructive pulmonary disease with (acute) exacerbation; S32.058A Other fracture of fifth lumbar vertebra, initial encounter for closed fracture; I12.0 Hypertensive chronic kidney disease with stage 5 chronic kidney disease or end stage renal disease; S22.43XA Multiple fractures of ribs, bilateral, initial encounter for closed fracture; R18.8 Other ascites; Q61.3 Polycystic kidney, unspecified; S32.028A Other fracture of second lumbar vertebra, initial encounter for closed fracture; S32.038A Other fracture of third lumbar vertebra, initial encounter for closed fracture; F13.20 Sedative, hypnotic or anxiolytic dependence, uncomplicated; F11.20 Opioid dependence, uncomplicated; E87.1 Hypo-osmolality and hyponatremia; K56.7 Ileus, unspecified; J95.01 Hemorrhage from tracheostomy stoma; F02.81 Dementia in other diseases classified elsewhere, unspecified severity, with behavioral disturbance; S06.6X9A Traumatic subarachnoid hemorrhage with loss of consciousness of unspecified duration, initial encounter; Z99.2 Dependence on renal dialysis; Z86.79 Personal history of other diseases of the circulatory system; V47.5XXA Car driver injured in collision with fixed or stationary object in traffic accident, initial encounter; S80.11XA Contusion of right lower leg, initial encounter; B19.20 Unspecified viral hepatitis C without hepatic coma; S00.83XA Contusion of other part of head, initial encounter; F17.210 Nicotine dependence, cigarettes, uncomplicated; D64.9 Anemia, unspecified; S40.012A Contusion of left shoulder, initial encounter; S20.212A Contusion of left front wall of thorax, initial encounter; S40.022A Contusion of left upper arm, initial encounter; S06.369A Traumatic hemorrhage of cerebrum, unspecified, with loss of consciousness of unspecified duration, initial encounter; F41.9 Anxiety disorder, unspecified; F32.9 Major depressive disorder, single episode, unspecified; R73.9 Hyperglycemia, unspecified; E83.39 Other disorders of phosphorus metabolism; E87.6 Hypokalemia; I27.20 Pulmonary hypertension, unspecified; Z51.5 Encounter for palliative care; E21.3 Hyperparathyroidism, unspecified; Y84.8 Other medical procedures as the cause of abnormal reaction of the patient, or of later complication, without mention of misadventure at the time of the procedure; R31.0 Gross hematuria; E87.70 Fluid overload, unspecified; G93.2 Benign intracranial hypertension; E88.09 Other disorders of plasma-protein metabolism, not elsewhere classified; F01.50 Vascular dementia, unspecified severity, without behavioral disturbance, psychotic disturbance, mood disturbance, and anxiety; D69.6 Thrombocytopenia, unspecified; K86.89 Other specified diseases of pancreas; K29.70 Gastritis, unspecified, without bleeding; J32.3 Chronic sphenoidal sinusitis; G93.89 Other specified disorders of brain
CPT/HCPCS: 31600; 31624; 36430; 36556; 36600; 61210; 70450; 70496; 70498; 71045; 71250; 71260; 72125; 73552; 73590; 74018; 74176; 74177; 76937; 80048; 80053; 80074; 80076; 80202; 80307; 82805; 82948; 83735; 83930; 84100; 84295; 84702; 85007; 85014; 85018; 85025; 85027; 85384; 85610; 85730; 86077; 86850; 86870; 86880; 86900; 86901; 86902; 86920; 86922; 87015; 87040; 87070; 87077; 87102; 87116; 87186; 87205; 87206; 87493; 87641; 88300; 88304; 88305; 88312; 90935; 93005; 93306; 94002; 94003; 94640; 94664; 94667; 94770; 95819; 96374; 96375; C9113; C9248; G0481; J0131; J0360; J0456; J0690; J1100; J1580; J1630; J1644; J1940; J1953; J1956; J2060; J2212; J2250; J2270; J2405; J2543; J2597; J2765; J3010; J3370; J3480; J7030; J7040; J7050; J7608; J7613; P9016; P9035; P9047; Q4081; Q9963; Q9967

== ENCOUNTER 2017-06-29 17:43 | Emergency (ER) | payer MEDICARE ==
[~2017-06-29] VITALS: Ht 151.1 cm; Wt 57.0 kg
[~2017-06-29 17:43] MED LIST: ALBUAER3 INH; CALC1CAP PO; CINA30 PO; CLON0.1T PO; LISI-515 PO; METO1TAB9 PO; PARO40TA2 PO; RENATAB6 PO; SEVEL800 PO; XANA1TAB2 PO
[2017-06-29 17:58] VITALS: BP 164/84; PULSE 84; RESP 20; TEMP 97.9; O2SAT 95
[2017-06-29] MEDS ORDERED: DILA2TAB4 PO (19:30)
--- NOTE | 2017-06-29 19:58 | PD ---
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 The patient was seen as a trauma alert in March of this year. She had an intracranial bleed and had PEG tube placement during this admission. She states that for the last 2 months she has not used the PEG tube at all and has been able to eat and drink without difficulty. She takes her medications orally as well. PFSH Past Medical History Anxiety: Yes Depression: Yes Cardiovascular Problems: Yes (Anemia) Dialysis: Yes Endocrine: Yes (Hyperparathyroidism) Gastrointestinal Disorders: Yes Genitourinary: Yes (Polycystic kidney disease) Hepatitis: Yes (C) Hypertension: Yes Implanted Vascular Access Dvce: Yes Psychiatric: Yes Renal Failure: Yes (Hemodialysis/ PCD) Tetanus Vaccination: < 5 Years ?: Not Past Surgical History Abdominal Surgery: Yes (g tube ) Body Medical Devices: Aneurysm clip Section: Yes (x 2) Neurologic Surgery: Yes (Aneurysm clip) Other Surgery: Yes (AV fistula left upper arm) Social History Alcohol Use: No Tobacco Use: No Substance Use: No Allergies-Medications (Allergen,Severity, Reaction): Coded Allergies: codeine (Verified Allergy, Intermediate, 03/14/17) Reported Meds & Prescriptions Reported Meds & Active Scripts Active Reported Dilaudid (Hydromorphone HCl) 2 Mg Tab 2 Mg PO Q8H PRN Metoprolol Succinate ER 24 HR (Metoprolol Succinate) 50 Mg Tab 50 Mg PO DAILY Xanax (Alprazolam) 1 Mg Tab 1 Mg PO TID PRN Sensipar (Cinacalcet) 30 Mg Tab 30 Mg PO DAILY Renvela (Sevelamer Carbonate) 800 Mg Tab 800 Mg PO TID Darleen-Yobani Rx (B-Complex W/ C & Folic Acid) 1 Tab 1 Tab PO DAILY Proair Hfa 8.5 GM Inh (Albuterol Sulfate) 90 Mcg/Act Aer 2 Puff INH Q6H PRN 108 mcg/actuation Paroxetine (Paroxetine HCl) 40 Mg Tab 40 Mg PO DAILY Lisinopril 20 Mg Tab 20 Mg PO DAILY Clonidine (Clonidine HCl) 0.1 Mg Tab 0.1 Mg PO BID PRN Calcium Acetate (Phosphate Binder) 667 Mg Cap 667 Mg PO TID Review of Systems Except as stated in HPI: all other systems reviewed are Neg Physical Exam Narrative GENERAL: Well-developed, well-nourished, awake, alert, no apparent distress. SKIN: Focused skin assessment warm/dry. HEAD: Atraumatic. Normocephalic. EYES: Pupils equal and round. No scleral icterus. No injection or drainage. ENT: Mucous membranes pink and moist. CARDIOVASCULAR: Regular rate and rhythm. No murmur appreciated. RESPIRATORY: No accessory muscle use. Clear to auscultation. Breath sounds equal bilaterally. GASTROINTESTINAL: Abdomen soft, non-tender, nondistended. Left upper quadrant PEG tube in place with surrounding site clean, dry, intact. No warmth or erythema. No fluctuance or induration. MUSCULOSKELETAL: No obvious deformities. No clubbing. No cyanosis. No edema. NEUROLOGICAL: Awake and alert. No obvious cranial nerve deficits. Motor grossly within normal limits. Normal speech. PSYCHIATRIC: Appropriate mood and affect; insight and judgment normal. Data Data Last Documented VS Vital Signs Date Time Temp Pulse Resp B/P (MAP) Pulse Ox O2 Delivery O2 Flow Rate FiO2 06/29/17 17:58 97.9 84 20 164/84 (110) 95 MDM Medical Decision Making Medical Screen Exam Complete: Yes Emergency Medical Condition: Yes Differential Diagnosis PEG tube removal Narrative Course I discussed the case with on-call tie bucker Dr. Stuart he states that it would be safe for me to remove the PEG tube in the emergency department. He advises that the patient does not have anything to eat or drink for the next 2-3 hours. Should the stoma not closed, with the patient experience any complications, he recommends that she follow-up in their office as an outpatient. Patient is happy with this plan. PEG tube was removed by me without complication. She was advised on when to return to the emergency department. She verbalizes understanding and agreement with plan. Diagnosis Primary Impression: PEG (percutaneous endoscopic gastrostomy) adjustment/replacement/removal Referrals: Ankur Stuart MD 3 days Security Control Assessor Primary Care Physician 3 days Additional Instructions: Follow-up with a primary care physician this week. Follow-up with tie bucker Dr. Stuart or a tie bucker of your choice this week. Return to the emergency department for worsening symptoms or any other concerns. Disposition: 01 DISCHARGE HOME Condition: Stable Luciano Nicole MD June 29, 2017 19:58
== END 2017-06-29 20:24 | disposition home or self-care (01) ==
LOC: NEPD 17:43
DX: Z43.1 Encounter for attention to gastrostomy (principal)
CPT/HCPCS: 99281